=== PATIENT | male | born 1945 | race Caucasian/White ===

== ENCOUNTER 2016-10-16 19:25 | Emergency (ER) | payer MEDICARE, OTHER ==
[~2016-10-16 19:25] MED LIST: Albuterol 0.083% 2.5 MG/3 ML Neb Soln INH ONE
[2016-10-16 19:36] VITALS: BP 147/98
--- NOTE | 2016-10-16 20:17 | EDM.PDOC ---
ED HPI GENERAL MEDICAL PROBLEM - General Chief Complaint: Respiratory Problem Stated Complaint: CHEST COLD Time Seen by Provider: 10/16/16 20:15 Source of Information: Reports: Patient History Limitations: Reports: No Limitations - History of Present Illness INITIAL COMMENTS - FREE TEXT/NARRATIVE: SOB since yesterday with h/o COPD. - Related Data Allergies Allergy/AdvReac Type Severity Reaction Status Date / Time No Known Allergies Allergy Verified 10/16/16 19:32 Home Meds: Home Meds Acetaminophen [Tylenol] 2 tab PO Q4H PRN 10/16/16 [History] Albuterol Sulfate [Proventil Hfa] 2 inh INH Q4H PRN 10/16/16 [History] Budesonide/Formoterol Fumarate [Symbicort 160-4.5 Mcg Inhaler] 2 inh INH BID [History] Calcium Carb & Citrate/Vit D3 [Calcium + D3 ER Tablet] 1 tab PO DAILY 10/16/16 [ History] Docusate Sodium [Colace] 1 tab PO DAILY 10/16/16 [History] Furosemide [Lasix] 1 tab PO DAILY 10/16/16 [History] Gabapentin [Neurontin] 1 tab PO TID 10/16/16 [History] Garlic 1 tab PO DAILY 10/16/16 [History] Hydrocodone/Acetaminophen [Lorcet Hd 10-325 mg Tablet] 1 tab PO ASDIRECTED PRN 10/16/16 [History] Levothyroxine 1 tab PO DAILY 10/16/16 [History] Metoprolol Succinate [Toprol XL] 1 tab PO DAILY 10/16/16 [History] Multivitamin [Multi-Vitamin Daily] 1 tab PO DAILY 10/16/16 [History] Polyethylene Glycol 3350 [MiraLAX] 17 gm PO ASDIRECTED PRN 10/16/16 [History] Spironolactone [Aldactone] 12.5 mg PO DAILY 10/16/16 [History] Tiotropium [Spiriva HandiHaler] 1 inh INH DAILY 10/16/16 [History] Warfarin Sodium [Jantoven] 1 tab PO ASDIRECTED 10/16/16 [History] Warfarin Sodium [Jantoven] 1 tab PO ASDIRECTED 10/16/16 [History] Past Medical History Cardiovascular History: Reports: Heart Failure, Hypertension Respiratory History: Reports: COPD, Sleep Apnea Gastrointestinal History: Reports: Chronic Constipation Musculoskeletal History: Reports: Arthritis Endocrine/Metabolic History: Reports: Hypothyroidism - Past Surgical History Musculoskeletal Surgical History: Reports: Knee Replacement Social & Family History - Family History Family Medical History: Noncontributory - Tobacco Use Smoking Status *Q: Former Smoker Used Tobacco, but Quit: No Month Tobacco Last Used: 2014 Second Hand Smoke Exposure: No - Caffeine Use Caffeine Use: Reports: Coffee - Recreational Drug Use Recreational Drug Use: No ED ROS GENERAL - Review of Systems Review Of Systems: ROS reveals no pertinent complaints other than HPI. ED EXAM, GENERAL - Physical Exam Exam: See Below Exam Limited By: No Limitations General Appearance: Alert, WD/WN, Mild Distress, Other (sob) Ears: Hearing Grossly Normal Throat/Mouth: Normal Voice, No Airway Compromise Head: Atraumatic Neck: Non-Tender, Full Range of Motion Respiratory/Chest: No Respiratory Distress, No Accessory Muscle Use, Rhonchi, Wheezing Cardiovascular: Irregularly Irregular GI/Abdominal: Soft, Non-Tender Neurological: Alert, Oriented, Normal Cognition, Normal Gait, No Motor/Sensory Deficits Psychiatric: Normal Affect, Normal Mood Skin Exam: Warm, Dry Lymphatic: No Adenopathy Course - Vital Signs Last Recorded V/S: Last Vital Signs Temp 36.8 C 10/16/16 19:35 Pulse 73 10/16/16 19:35 Resp 24 H 10/16/16 19:35 BP 147/98 H 10/16/16 19:35 Pulse Ox 88 L 10/16/16 19:35 - Orders/Labs/Meds Orders: Active Orders 24 hr Category Date Time Status EKG Documentation Completion [RC] STAT Care 10/16/16 20:14 Active RT Aerosol Therapy [RC] ASDIRECTED Care 10/16/16 20:39 Active CULTURE BLOOD [BC] Stat Lab 10/16/16 20:30 Received Labs: Laboratory Tests 10/16/16 10/16/16 10/16/16 Range/Units 20:30 20:30 20:30 WBC 10.6 H (5.0-10.0) 10^3/uL RBC 4.81 (4.6-6.2) 10^6/uL Hgb 16.0 (14.0-18.0) g/dL Hct 48.4 (40.0-54.0) % MCV 100.6 H (80-100) fL MCH 33.3 (27.0-34.0) pg MCHC 33.1 (33.0-35.0) g/dL Plt Count 209 (150-450) 10^3/uL Neut % (Auto) 60.6 (42.2-75.2) % Lymph % (Auto) 23.3 (20.5-50.1) % [place] % (Auto) 11.6 H (2-8) % Eos % (Auto) 3.9 H (1.0-3.0) % Baso % (Auto) 0.6 (0.0-1.0) % PT (9.0-12.0) SEC INR (0.9-1.2) D-Dimer, Quantitative 397 (0-400) ng/mL Sodium 142 (135-145) mmol/L Potassium 4.0 (3.6-5.0) mmol/L Chloride 100 L (101-111) mmol/L Carbon Dioxide 30.0 (21.0-31.0) mmol/L Anion Gap 16.0 BUN 31 H (7-18) mg/dL Creatinine 1.5 H (0.6-1.3) mg/dL Est Cr Clr Drug Dosing 54.77 mL/min Estimated GFR (MDRD) 46 BUN/Creatinine Ratio 20.66 Glucose 92 (74-105) mg/dL Lactic Acid (0.5-2.2) mmol/L Calcium 9.6 (8.4-10.2) mg/dl Total Bilirubin 1.3 H (0.2-1.0) mg/dL AST 41 (10-42) IU/L ALT 31 (10-60) IU/L Alkaline Phosphatase 82 (42-121) IU/L Troponin I 0.03 H* (0.00-0.02) ng/ml B-Natriuretic Peptide 175 H (0-100) pg/ml Total Protein 7.0 (6.7-8.2) g/dl Albumin 4.0 (3.2-5.5) g/dl Globulin 3.0 Albumin/Globulin Ratio 1.33 10/16/16 10/16/16 Range/Units 20:30 20:30 WBC (5.0-10.0) 10^3/uL RBC (4.6-6.2) 10^6/uL Hgb (14.0-18.0) g/dL Hct (40.0-54.0) % MCV (80-100) fL MCH (27.0-34.0) pg MCHC (33.0-35.0) g/dL Plt Count (150-450) 10^3/uL Neut % (Auto) (42.2-75.2) % Lymph % (Auto) (20.5-50.1) % [place] % (Auto) (2-8) % Eos % (Auto) (1.0-3.0) % Baso % (Auto) (0.0-1.0) % PT 21.7 H (9.0-12.0) SEC INR 2.2 H (0.9-1.2) D-Dimer, Quantitative (0-400) ng/mL Sodium (135-145) mmol/L Potassium (3.6-5.0) mmol/L Chloride (101-111) mmol/L Carbon Dioxide (21.0-31.0) mmol/L Anion Gap BUN (7-18) mg/dL Creatinine (0.6-1.3) mg/dL Est Cr Clr Drug Dosing mL/min Estimated GFR (MDRD) BUN/Creatinine Ratio Glucose (74-105) mg/dL Lactic Acid 1.4 (0.5-2.2) mmol/L Calcium (8.4-10.2) mg/dl Total Bilirubin (0.2-1.0) mg/dL AST (10-42) IU/L ALT (10-60) IU/L Alkaline Phosphatase (42-121) IU/L Troponin I (0.00-0.02) ng/ml B-Natriuretic Peptide (0-100) pg/ml Total Protein (6.7-8.2) g/dl Albumin (3.2-5.5) g/dl Globulin Albumin/Globulin Ratio Meds: Medications Discontinued Medications Generic Name Dose Route Start Last Admin Trade Name Freq PRN Reason Stop Dose Admin Albuterol/Ipratropium 3 ml 10/16/16 20:39 10/16/16 20:45 Duoneb 3.0-0.5 Mg/3 Ml NEB 10/16/16 20:40 3 ml ONETIME ONE Administration - Re-Assessments/Exams Free Text/Narrative Re-Assessment/Exam: 10/16/16 21:08 results discussed with Pt who states 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 10/16/16 22:[address] Lopes @ [facility] who kindly accepted Pt. Departure - Departure Time of Disposition: 22:14 Disposition: DC/Tfer to Acute Hospital 02 Condition: Good Clinical Impression: COPD exacerbation, Elevated troponin, Elevated brain natriuretic peptide (BNP) level - Discharge Information Forms: Interfacility Transfer EMTALA - My Orders Last 24 Hours: My Active Orders 10/16/16 20:14 EKG Documentation Completion [RC] STAT 10/16/16 20:30 CULTURE BLOOD [BC] Stat 10/16/16 20:39 RT Aerosol Therapy [RC] ASDIRECTED - Assessment/Plan Last 24 Hours: My Active Orders 10/16/16 20:14 EKG Documentation Completion [RC] STAT 10/16/16 20:30 CULTURE BLOOD [BC] Stat 10/16/16 20:39 RT Aerosol Therapy [RC] ASDIRECTED
[2016-10-16] MEDS ORDERED: Albuterol/Ipratropium 3.0-0.5 MG/3 ML Neb Soln NEB ONE (20:39)
[2016-10-16] MEDS ORDERED: Albuterol 0.083% 2.5 MG/3 ML Neb Soln ONE (22:58)
--- NOTE | 2016-10-17 21:50 | EKG ---
10/16/2016 - FAYE SOTOMAYOR - Twelve-lead EKG shows atrial fibrillation with heart rate of 74. No significant ST elevation or ST depression noted on this 12-lead EKG. [facility] /[id number]
== END 2016-10-16 23:16 ==
LOC: DL.ED 19:25
DX: J44.1 Chronic obstructive pulmonary disease with (acute) exacerbation (principal); R74.8 Abnormal levels of other serum enzymes; R79.89 Other specified abnormal findings of blood chemistry; E03.9 Hypothyroidism, unspecified; I10 Essential (primary) hypertension; I50.9 Heart failure, unspecified; Z87.891 Personal history of nicotine dependence; Z96.659 Presence of unspecified artificial knee joint; Z79.899 Other long term (current) drug therapy; Z79.01 Long term (current) use of anticoagulants
CPT/HCPCS: 36415; 71010; 80053; 83605; 83880; 84484; 85025; 85379; 85610; 87040; 93005; 93010; 94640; 99285; J7620; 99283

== ENCOUNTER 2016-10-29 12:03 | Emergency (ER) | payer MEDICARE, OTHER ==
--- NOTE | 2016-10-29 12:10 | EDM.PDOC ---
ED HPI GENERAL MEDICAL PROBLEM - General Chief Complaint: Trauma Stated Complaint: IN BY AMBULANCE Time Seen by Provider: 10/29/16 12:00 Source of Information: Reports: EMS - History of Present Illness INITIAL COMMENTS - FREE TEXT/NARRATIVE: Per Ems, pt was found down upon their arrival. States that pt states that he tripped and fell. c/o pain to lower back. States that he had been down since approximately 7 am. Per patient, he was walking and tripped, fell down but then got up and grabbed his walker to help him walk and it slipped and he fell again and couldnt get up. Denies LOC or any other complaints. EMS states that pt was dragging the right leg and his saturation was at 60's% initially but increased to 90% on NRB. Onset: Today Onset Time: 07:00 Location: Reports: Head, Back Quality: Reports: Ache Severity: Moderate Improves with: Reports: None Worsens with: Reports: None Associated Symptoms: Reports: No Other Symptoms - Related Data Allergies Allergy/AdvReac Type Severity Reaction Status Date / Time No Known Allergies Allergy Verified 10/29/16 12:16 Home Meds: Home Meds Acetaminophen [Tylenol] 2 tab PO Q4H PRN 10/16/16 [History] Albuterol Sulfate [Proventil Hfa] 2 inh INH Q4H PRN 10/16/16 [History] Budesonide/Formoterol Fumarate [Symbicort 160-4.5 Mcg Inhaler] 2 inh INH BID [History] Calcium Carb & Citrate/Vit D3 [Calcium + D3 ER Tablet] 1 tab PO DAILY 10/16/16 [ History] Docusate Sodium [Colace] 1 tab PO DAILY 10/16/16 [History] Furosemide [Lasix] 1 tab PO DAILY 10/16/16 [History] Gabapentin [Neurontin] 1 tab PO TID 10/16/16 [History] Garlic 1 tab PO DAILY 10/16/16 [History] Hydrocodone/Acetaminophen [Lorcet Hd 10-325 mg Tablet] 1 tab PO ASDIRECTED PRN 10/16/16 [History] Levothyroxine 1 tab PO DAILY 10/16/16 [History] Metoprolol Succinate [Toprol XL] 1 tab PO DAILY 10/16/16 [History] Multivitamin [Multi-Vitamin Daily] 1 tab PO DAILY 10/16/16 [History] Polyethylene Glycol 3350 [MiraLAX] 17 gm PO ASDIRECTED PRN 10/16/16 [History] Spironolactone [Aldactone] 12.5 mg PO DAILY 10/16/16 [History] Tiotropium [Spiriva HandiHaler] 1 inh INH DAILY 10/16/16 [History] Warfarin Sodium [Jantoven] 1 tab PO ASDIRECTED 10/16/16 [History] Warfarin Sodium [Jantoven] 1 tab PO ASDIRECTED 10/16/16 [History] Past Medical History Cardiovascular History: Reports: Heart Failure, Hypertension Respiratory History: Reports: COPD, Sleep Apnea Gastrointestinal History: Reports: Chronic Constipation Musculoskeletal History: Reports: Arthritis Endocrine/Metabolic History: Reports: Hypothyroidism - Past Surgical History Musculoskeletal Surgical History: Reports: Knee Replacement Social & Family History - Family History Family Medical History: Noncontributory - Tobacco Use Smoking Status *Q: Former Smoker Used Tobacco, but Quit: No Month Tobacco Last Used: 2014 Second Hand Smoke Exposure: No - Caffeine Use Caffeine Use: Reports: Coffee - Recreational Drug Use Recreational Drug Use: No Review of Systems - Review of Systems Review Of Systems: ROS reveals no pertinent complaints other than HPI. ED EXAM, GENERAL - Physical Exam Exam: See Below Exam Limited By: No Limitations General Appearance: Alert, WD/WN, No Apparent Distress Eye Exam: Bilateral Eye: Abnormal Pupil (L4, R 2) Ears: Normal External Exam, Normal Canal, Hearing Grossly Normal, Normal TMs Head: Other (small hematoma right temporal area) Neck: Normal Inspection, Supple, Non-Tender, Full Range of Motion Respiratory/Chest: No Respiratory Distress, No Accessory Muscle Use, Chest Non- Tender, Decreased Breath Sounds Cardiovascular: Normal Peripheral Pulses, Regular Rate, Rhythm, No Edema, No Gallop, No JVD, No Murmur, No Rub GI/Abdominal: Normal Bowel Sounds, Soft, Non-Tender, No Organomegaly, No Distention, No Abnormal Bruit, No Mass Extremities: Normal Inspection, No Pedal Edema, Normal Capillary Refill, Limited Range of Motion (pain, Lower back to palpation) Neurological: Alert, Oriented, CN II-XII Intact, Normal Cognition, Normal Gait, Normal Reflexes, No Motor/Sensory Deficits Skin Exam: Warm, Dry, Normal Color, No Rash, Wound/Incision (small abrasion to left forearm) Course - Vital Signs Last Recorded V/S: Last Vital Signs Temp 98.6 F 10/29/16 19:13 Pulse 76 10/29/16 19:13 Resp 18 10/29/16 19:13 BP 126/80 10/29/16 19:13 Pulse Ox 99 10/29/16 19:13 - Orders/Labs/Meds Orders: Active Orders 24 hr Category Date Time Status EKG Documentation Completion [RC] STAT Care 10/29/16 12:27 Active RT Aerosol Therapy [RC] ASDIRECTED Care 10/29/16 15:07 Active Vaccines to be Administered [RC] PER UNIT ROUTINE Care 10/29/16 12:52 Active Heparin Sodium/D5W [Heparin 25,000 Units in D5W 500 ML] Med 10/29/16 19:30 Ordered 25,000 units in 500 ml IV TITRATE Sodium Chloride 0.9% [Normal Saline] 1,000 ml Med 10/29/16 13:21 Active IV ASDIRECTED Sodium Chloride 0.9% [Saline Flush] Med 10/29/16 12:29 Active 10 ml FLUSH ASDIRECTED PRN Saline Lock Insert [OM.PC] Stat Oth 10/29/16 12:27 Ordered Medication Orders Sodium Chloride (Normal Saline) 1,000 mls @ 100 mls/hr IV ASDIRECTED ONE Stop: 10/29/16 23:20 Last Admin: 10/29/16 13:26 Dose: 100 mls/hr Heparin Sodium/Dextrose (Heparin 25,000 Units In D5w 500 Ml) 25,000 units in 500 mls @ 29.937 mls/hr IV TITRATE CHIKIS; 12 UNITS/KG/HR PRN Reason: Protocol Last Admin: 10/29/16 19:30 Dose: 12 units/kg/hr, 29.937 mls/hr Sodium Chloride (Saline Flush) 10 ml FLUSH ASDIRECTED PRN PRN Reason: Keep Vein Open Last Admin: 10/29/16 12:54 Dose: 10 ml Labs: Laboratory Tests 10/29/16 10/29/16 10/29/16 Range/Units 12:04 12:04 12:04 WBC 13.2 H (5.0-10.0) 10^3/uL RBC 5.08 (4.6-6.2) 10^6/uL Hgb 16.7 (14.0-18.0) g/dL Hct 50.2 (40.0-54.0) % MCV 98.8 (80-100) fL MCH 32.9 (27.0-34.0) pg MCHC 33.3 (33.0-35.0) g/dL Plt Count 190 (150-450) 10^3/uL Neut % (Auto) 86.0 H (42.2-75.2) % Lymph % (Auto) 5.2 L (20.5-50.1) % [place] % (Auto) 8.2 H (2-8) % Eos % (Auto) 0.3 L (1.0-3.0) % Baso % (Auto) 0.3 (0.0-1.0) % Sodium 143 (135-145) mmol/L Potassium 4.4 (3.6-5.0) mmol/L Chloride 104 (101-111) mmol/L Carbon Dioxide 27.0 (21.0-31.0) mmol/L Anion Gap 16.4 BUN 24 H (7-18) mg/dL Creatinine 1.4 H (0.6-1.3) mg/dL Est Cr Clr Drug Dosing 58.68 mL/min Estimated GFR (MDRD) 50 Glucose 134 H (74-105) mg/dL POC Glucose (83-110) mg/dl Calcium 9.5 (8.4-10.2) mg/dl Creatine Kinase 657 H (26-174) IU/L Creatine Kinase Index 0.7 (0-2.4) % CK-MB (CK-2) 4.90 H (0.4-4.7) ng/mL Troponin I 0.16 H* (0.00-0.02) ng/ml B-Natriuretic Peptide (0-100) pg/ml Urine Color (YELLOW) Urine Appearance (CLEAR) Urine pH (5.0-9.0) Ur Specific [place] (1.005-1.030) Urine Protein (NEGATIVE) Urine Glucose (UA) (NEGATIVE) Urine Ketones (NEGATIVE) Urine Occult Blood (NEGATIVE) Urine Nitrite (NEGATIVE) Urine Bilirubin (NEGATIVE) Urine Urobilinogen (0.2-1.0) mg/dL Ur Leukocyte Esterase (NEGATIVE) Urine RBC /HPF Urine WBC (0-5/HPF) /HPF Ur Epithelial Cells /HPF Urine Bacteria (0-FEW/HPF) /HPF Hyaline Casts /LPF Ethyl Alcohol < 5 mg/dL 10/29/16 10/29/16 10/29/16 Range/Units 12:04 12:09 12:09 WBC (5.0-10.0) 10^3/uL RBC (4.6-6.2) 10^6/uL Hgb (14.0-18.0) g/dL Hct (40.0-54.0) % MCV (80-100) fL MCH (27.0-34.0) pg MCHC (33.0-35.0) g/dL Plt Count (150-450) 10^3/uL Neut % (Auto) (42.2-75.2) % Lymph % (Auto) (20.5-50.1) % [place] % (Auto) (2-8) % Eos % (Auto) (1.0-3.0) % Baso % (Auto) (0.0-1.0) % Sodium (135-145) mmol/L Potassium (3.6-5.0) mmol/L Chloride (101-111) mmol/L Carbon Dioxide (21.0-31.0) mmol/L Anion Gap BUN (7-18) mg/dL Creatinine (0.6-1.3) mg/dL Est Cr Clr Drug Dosing mL/min Estimated GFR (MDRD) Glucose (74-105) mg/dL POC Glucose 139 H (83-110) mg/dl Calcium (8.4-10.2) mg/dl Creatine Kinase (26-174) IU/L Creatine Kinase Index (0-2.4) % CK-MB (CK-2) (0.4-4.7) ng/mL Troponin I (0.00-0.02) ng/ml B-Natriuretic Peptide 171 H (0-100) pg/ml Urine Color Yellow (YELLOW) Urine Appearance Clear (CLEAR) Urine pH 5.5 (5.0-9.0) Ur Specific [place] 1.025 (1.005-1.030) Urine Protein >=300 H (NEGATIVE) Urine Glucose (UA) Negative (NEGATIVE) Urine Ketones Negative (NEGATIVE) Urine Occult Blood Moderate H (NEGATIVE) Urine Nitrite Negative (NEGATIVE) Urine Bilirubin Negative (NEGATIVE) Urine Urobilinogen 0.2 (0.2-1.0) mg/dL Ur Leukocyte Esterase Negative (NEGATIVE) Urine RBC 0-5 /HPF Urine WBC 0-5 (0-5/HPF) /HPF Ur Epithelial Cells Few /HPF Urine Bacteria Not seen (0-FEW/HPF) /HPF Hyaline Casts Rare H /LPF Ethyl Alcohol mg/dL 10/29/16 10/29/16 Range/Units 17:59 17:59 WBC (5.0-10.0) 10^3/uL RBC (4.6-6.2) 10^6/uL Hgb (14.0-18.0) g/dL Hct (40.0-54.0) % MCV (80-100) fL MCH (27.0-34.0) pg MCHC (33.0-35.0) g/dL Plt Count (150-450) 10^3/uL Neut % (Auto) (42.2-75.2) % Lymph % (Auto) (20.5-50.1) % [place] % (Auto) (2-8) % Eos % (Auto) (1.0-3.0) % Baso % (Auto) (0.0-1.0) % Sodium 143 (135-145) mmol/L Potassium 4.6 (3.6-5.0) mmol/L Chloride 106 (101-111) mmol/L Carbon Dioxide 28.0 (21.0-31.0) mmol/L Anion Gap 13.6 BUN 23 H (7-18) mg/dL Creatinine 1.1 (0.6-1.3) mg/dL Est Cr Clr Drug Dosing 74.68 mL/min Estimated GFR (MDRD) > 60 Glucose 172 H (74-105) mg/dL POC Glucose (83-110) mg/dl Calcium 9.0 (8.4-10.2) mg/dl Creatine Kinase 764 H (26-174) IU/L Creatine Kinase Index 0.7 (0-2.4) % CK-MB (CK-2) 5.70 H (0.4-4.7) ng/mL Troponin I 0.34 H* (0.00-0.02) ng/ml B-Natriuretic Peptide (0-100) pg/ml Urine Color (YELLOW) Urine Appearance (CLEAR) Urine pH (5.0-9.0) Ur Specific [place] (1.005-1.030) Urine Protein (NEGATIVE) Urine Glucose (UA) (NEGATIVE) Urine Ketones (NEGATIVE) Urine Occult Blood (NEGATIVE) Urine Nitrite (NEGATIVE) Urine Bilirubin (NEGATIVE) Urine Urobilinogen (0.2-1.0) mg/dL Ur Leukocyte Esterase (NEGATIVE) Urine RBC /HPF Urine WBC (0-5/HPF) /HPF Ur Epithelial Cells /HPF Urine Bacteria (0-FEW/HPF) /HPF Hyaline Casts /LPF Ethyl Alcohol mg/dL Meds: Medications Generic Name Dose Route Start Last Admin Trade Name Ham PRN Reason Stop Dose Admin Sodium Chloride 1,000 mls @ 100 mls/hr 10/29/16 13:21 10/29/16 13:26 Normal Saline IV 10/29/16 23:20 100 mls/hr ASDIRECTED ONE Administration Heparin Sodium/Dextrose 25,000 units in 500 mls @ 29.937 mls/hr 10/29/16 19: 30 10/29/16 19:30 Heparin 25,000 Units In D5w 500 Ml IV 12 units/kg/hr TITRATE CHIKIS 29.937 mls/hr Protocol Administration 12 UNITS/KG/HR Sodium Chloride 10 ml 10/29/16 12:29 10/29/16 12:54 Saline Flush FLUSH 10 ml ASDIRECTED PRN Administration Keep Vein Open Discontinued Medications Generic Name Dose Route Start Last Admin Trade Name Ham PRN Reason Stop Dose Admin Albuterol/Ipratropium 3 ml 10/29/16 15:06 10/29/16 15:15 Duoneb 3.0-0.5 Mg/3 Ml NEB 10/29/16 15:07 3 ml ONETIME ONE Administration Aspirin 324 mg 10/29/16 13:20 10/29/16 13:26 Aspirin PO 10/29/16 13:21 324 mg ONETIME ONE Administration Diphtheria/Tetanus/Acell Pertussis 0.5 ml 10/29/16 12:52 10/29/16 13:17 Adacel IM 10/29/16 12:53 0.5 ml .ONCE ONE Administration Heparin Sodium (Porcine) 5,000 units 10/29/16 19:10 Heparin Sodium IVPUSH 10/29/16 19:11 ONETIME ONE Sodium Chloride 1,000 mls @ 999 mls/hr 10/29/16 14:23 10/29/16 14:42 Normal Saline IV 10/29/16 15:23 Not Given .BOLUS ONE Sodium Chloride 1,000 mls @ 999 mls/hr 10/29/16 15:06 10/29/16 15:20 Normal Saline IV 10/29/16 16:06 999 mls/hr .BOLUS ONE Administration Iopamidol 125 ml 10/29/16 12:37 10/29/16 13:33 Isovue-300 (61%) IVPUSH 10/29/16 12:38 125 ml ONETIME ONE Administration Methylprednisolone Sodium Succinate 125 mg 10/29/16 15:06 10/29/16 15:19 Solu-Medrol IVPUSH 10/29/16 15:07 125 mg ONETIME ONE Administration - Re-Assessments/Exams Free Text/Narrative Re-Assessment/Exam: 10/29/16 12:[address] Serna at [facility] and he states to repeat troponin and BMP to re-evaluate the elevated troponin and cr. States that pt had an echo within the past month and it was normal. Will obtain repeat labs in 6 hours. 10/29/16 18:[address] Serna about repeat labs and elevation and he feels that patient does not need to be admitted and the elevated enzymes could be because of the electrolyte imbalance and dehydration. Will speak with family and notify results and plan. 10/29/16 19:33 Spoke with daughter Loida and patient who both agree with transfer to [place] with Dr. Gimenez accepting. Departure - Departure Time of Disposition: 19:19 Disposition: DC/Tfer to Acute Hospital 02 Condition: Good Clinical Impression: Elevated troponin, NSTEMI, initial episode of care - Discharge Information Forms: ED Department Discharge, Interfacility Transfer EMTALA - My Orders Last 24 Hours: My Active Orders 10/29/16 12:27 EKG Documentation Completion [RC] STAT Saline Lock Insert [OM.PC] Stat 10/29/16 12:29 Sodium Chloride 0.9% [Saline Flush] 10 ml FLUSH ASDIRECTED PRN 10/29/16 12:52 Vaccines to be Administered [RC] PER UNIT ROUTINE 10/29/16 13:21 Sodium Chloride 0.9% [Normal Saline] 1,000 ml IV ASDIRECTED 10/29/16 15:07 RT Aerosol Therapy [RC] ASDIRECTED 10/29/16 19:30 Heparin Sodium/D5W [Heparin 25,000 Units in D5W 500 ML] 25,000 units in 500 ml IV TITRATE - Assessment/Plan Last 24 Hours: My Active Orders 10/29/16 12:27 EKG Documentation Completion [RC] STAT Saline Lock Insert [OM.PC] Stat 10/29/16 12:29 Sodium Chloride 0.9% [Saline Flush] 10 ml FLUSH ASDIRECTED PRN 10/29/16 12:52 Vaccines to be Administered [RC] PER UNIT ROUTINE 10/29/16 13:21 Sodium Chloride 0.9% [Normal Saline] 1,000 ml IV ASDIRECTED 10/29/16 15:07 RT Aerosol Therapy [RC] ASDIRECTED 10/29/16 19:30 Heparin Sodium/D5W [Heparin 25,000 Units in D5W 500 ML] 25,000 units in 500 ml IV TITRATE
[2016-10-29] MEDS ORDERED: Sodium Chloride 0.9% 10 ML Syringe FLUSH PRN (12:29)
[2016-10-29] MEDS ORDERED: Iopamidol 612 MG/ML 100 ML Bottle IVPUSH ONE (12:37)
[2016-10-29] MEDS ORDERED: Diphtheria,Pertussis(Acell),Tetanus Vaccine 0.5 ML SDV IM ONE (12:52)
[2016-10-29 12:54] LABS: SODIUM,NA 143 mmol/L (135-145)
[2016-10-29 12:55] LABS: CHLORIDE,CL 104 mmol/L (101-111)
[2016-10-29] MEDS ORDERED: Aspirin 81 MG Tab.Chew PO ONE (13:20)
[2016-10-29] MEDS ORDERED: Sodium Chloride 0.9% 1,000 ML IV ONE ×3 (13:21→15:06)
[2016-10-29] MEDS ORDERED: Albuterol/Ipratropium 3.0-0.5 MG/3 ML Neb Soln NEB ONE (15:06)
[2016-10-29] MEDS ORDERED: methylPREDNISolone Sodium Succinate 125 MG/2 ML SDV IVPUSH ONE (15:06)
[2016-10-29 18:27] LABS: CHLORIDE,CL 106 mmol/L (101-111); SODIUM,NA 143 mmol/L (135-145)
[2016-10-29] MEDS ORDERED: Heparin Sodium 5,000 Units/ML Vial IVPUSH ONE (19:10)
[2016-10-29 19:13] VITALS: BP 126/80
[2016-10-29] MEDS ORDERED: Heparin Sodium/D5W 25,000 UNITS/500 ML BAG IV SCH (19:30)
[2016-10-29] MEDS ORDERED: fentaNYL 100 MCG/2 ML SDV IVPUSH ONE (20:14)
[2016-10-29] MEDS ORDERED: Ondansetron 4 MG/2 ML SDV IV ONE (20:14)
--- NOTE | 2016-11-19 12:59 | EKG ---
10/29/2016 - FAYE SOTOMAYOR - TIME OF EK:01 p.m. FINDINGS: EKG shows atrial fibrillation with rapid ventricular response. The rate is 103 per minute. [facility] /[id number]
== END 2016-10-29 20:30 ==
LOC: DL.ED 12:03
DX: I21.4 Non-ST elevation (NSTEMI) myocardial infarction (principal); R79.89 Other specified abnormal findings of blood chemistry; I11.0 Hypertensive heart disease with heart failure; I50.9 Heart failure, unspecified; J44.9 Chronic obstructive pulmonary disease, unspecified; M19.90 Unspecified osteoarthritis, unspecified site; E03.9 Hypothyroidism, unspecified; Z96.659 Presence of unspecified artificial knee joint; Z79.01 Long term (current) use of anticoagulants; Z79.899 Other long term (current) drug therapy; Z87.891 Personal history of nicotine dependence; Z23 Encounter for immunization
CPT/HCPCS: 36415; 70450; 71260; 72125; 72128; 72131; 74177; 80048; 81001; 82550; 82553; 82962; 83880; 84484; 85025; 90471; 90715; 93005; 93010; 94640; 96374; 96375; 99284; 99285; A9270; G0480; J1644; J2405; J2930; J3010; J7030; J7050; Q9967

== ENCOUNTER 2018-12-30 19:25 | Emergency (ER) | payer MEDICARE, OTHER ==
[2018-12-30 21:58] LABS: ANION GAP 11.2
[2018-12-30] MEDS ORDERED: Sodium Chloride 0.9% 1,000 ML IV ONE (22:51)
[2018-12-30 23:47] VITALS: BP 102/60
[2018-12-31] MEDS ORDERED: Acetaminophen/oxyCODONE 325-5 MG Tab PO ONE (00:57)
--- NOTE | 2019-01-06 03:47 | EDM.PDOC ---
ED HPI GENERAL MEDICAL PROBLEM - General Chief Complaint: Lower Extremity Injury/Pain Stated Complaint: LEG IS HURTING Time Seen by Provider: 12/30/18 20:25 Source of Information: Reports: Patient, Family History Limitations: Reports: No Limitations - History of Present Illness INITIAL COMMENTS - FREE TEXT/NARRATIVE: C/o left leg bruised and left ribs hurting lower and around back. Reports multiple falls today, Notes falls ferquenlty, decreased feeling in feet and stumbles Has walker at home. Family reported fell early this am and laid on floor until family came to assist up, sat in recliner most of afternoon andearly rikki as unable to get up without pain. No SOB than usual. Daughter states he was supposed to be on oxygen but refused to use it. Hx ETOH use daily unknown amounts. Daughter also voices concern with use of pain medication he is currently on. - Related Data Allergies Allergy/AdvReac Type Severity Reaction Status Date / Time No Known Allergies Allergy Verified 12/30/18 20:55 Home Meds: Home Meds Acetaminophen [Tylenol] 2 tab PO Q4H PRN 10/16/16 [History] Albuterol Sulfate [Proventil Hfa] 2 inh INH Q4H PRN 10/16/16 [History] Budesonide/Formoterol Fumarate [Symbicort 160-4.5 Mcg Inhaler] 2 inh INH BID [History] Calcium Carb & Citrate/Vit D3 [Calcium + D3 ER Tablet] 1 tab PO DAILY 10/16/16 [ History] Docusate Sodium [Colace] 1 tab PO DAILY 10/16/16 [History] Furosemide [Lasix] 1 tab PO DAILY 10/16/16 [History] Gabapentin [Neurontin] 1 tab PO TID 10/16/16 [History] Garlic 1 tab PO DAILY 10/16/16 [History] Hydrocodone/Acetaminophen [Lorcet Hd 10-325 mg Tablet] 1 tab PO ASDIRECTED PRN 10/16/16 [History] Levothyroxine 1 tab PO DAILY 10/16/16 [History] Metoprolol Succinate [Toprol XL] 1 tab PO DAILY 10/16/16 [History] Multivitamin [Multi-Vitamin Daily] 1 tab PO DAILY 10/16/16 [History] Polyethylene Glycol 3350 [MiraLAX] 17 gm PO ASDIRECTED PRN 10/16/16 [History] Spironolactone [Aldactone] 12.5 mg PO DAILY 10/16/16 [History] Tiotropium [Spiriva HandiHaler] 1 inh INH DAILY 10/16/16 [History] Warfarin Sodium [Jantoven] 1 tab PO ASDIRECTED 10/16/16 [History] Warfarin Sodium [Jantoven] 1 tab PO ASDIRECTED 10/16/16 [History] Past Medical History Cardiovascular History: Reports: Heart Failure, Hypertension Respiratory History: Reports: COPD, Sleep Apnea Gastrointestinal History: Reports: Chronic Constipation Musculoskeletal History: Reports: Arthritis Endocrine/Metabolic History: Reports: Hypothyroidism - Past Surgical History Musculoskeletal Surgical History: Reports: Knee Replacement Social & Family History - Family History Family Medical History: Noncontributory - Tobacco Use Smoking Status *Q: Never Smoker Second Hand Smoke Exposure: No - Caffeine Use Caffeine Use: Reports: Coffee, Soda, Tea - Alcohol Use Number of Drinks Per Day: 1 - Recreational Drug Use Recreational Drug Use: No Review of Systems - Review of Systems Review Of Systems: ROS reveals no pertinent complaints other than HPI. ED EXAM, GENERAL - Physical Exam Exam: See Below Exam Limited By: No Limitations General Appearance: Alert, Mild Distress, Obese Eye Exam: Bilateral Eye: EOMI, PERRL Ears: Normal External Exam, Hearing Grossly Normal, Normal TMs Nose: Other (scant bruising to tip of nose) Throat/Mouth: Other (dry mucus membranes) Head: Atraumatic (faint bruise to mid forehead) Neck: Full Range of Motion. No: Tender Midline Respiratory/Chest: No Respiratory Distress, Decreased Breath Sounds (left), Wheezing (expiratory bases), Splinting (left pain lower left ribs) Cardiovascular: Normal Peripheral Pulses GI/Abdominal: Normal Bowel Sounds, Soft Back Exam: Normal Inspection Extremities: Leg Pain (hematoma left [place]) Neurological: Alert, Oriented, Normal Cognition Psychiatric: Flat Affect Skin Exam: Ecchymosis (multiple contusions bruises to extremities scattered) Course - Vital Signs Last Recorded V/S: Last Vital Signs Temp 97.9 F 12/30/18 23:13 Pulse 55 L 12/30/18 23:46 Resp 19 12/30/18 23:46 BP 102/60 12/30/18 23:46 Pulse Ox 95 12/30/18 23:46 - Orders/Labs/Meds Labs: Laboratory Tests 12/30/18 12/30/18 12/30/18 Range/Units 21:27 21:27 21:27 WBC 8.4 (5.0-10.0) 10^3/uL RBC 4.48 L (4.6-6.2) 10^6/uL Hgb 14.2 D (14.0-18.0) g/dL Hct 43.7 (40.0-54.0) % MCV 97.5 (80-100) fL MCH 31.7 (27.0-34.0) pg MCHC 32.5 L (33.0-35.0) g/dL Plt Count 167 (150-450) 10^3/uL Neut % (Auto) 65.4 (42.2-75.2) % Lymph % (Auto) 20.2 L (20.5-50.1) % Hunt % (Auto) 12.1 H (2-8) % Eos % (Auto) 1.9 (1.0-3.0) % Baso % (Auto) 0.4 (0.0-1.0) % PT 45.8 H D (9.0-12.0) SEC INR 4.9 H (0.9-1.2) Sodium 138 (135-145) mmol/L Potassium 4.2 (3.6-5.0) mmol/L Chloride 98 L (101-111) mmol/L Carbon Dioxide 33.0 H (21.0-31.0) mmol/L Anion Gap 11.2 BUN 56 H D (7-18) mg/dL Creatinine 1.9 H (0.6-1.3) mg/dL Est Cr Clr Drug Dosing 42.00 mL/min Estimated GFR (MDRD) 35 BUN/Creatinine Ratio 29.47 Glucose 126 H (74-105) mg/dL Calcium 8.8 (8.4-10.2) mg/dl Total Bilirubin 1.0 (0.2-1.0) mg/dL AST 37 (10-42) IU/L ALT 22 (10-60) IU/L Alkaline Phosphatase 80 (42-121) IU/L Creatine Kinase (26-174) IU/L Troponin I (0.00-0.02) ng/ml B-Natriuretic Peptide (0-100) pg/ml Total Protein 6.3 L (6.7-8.2) g/dl Albumin 3.5 (3.2-5.5) g/dl Globulin 2.8 Albumin/Globulin Ratio 1.25 Urine Color (YELLOW) Urine Appearance (CLEAR) Urine pH (5.0-9.0) Ur Specific [place] (1.005-1.030) Urine Protein (NEGATIVE) Urine Glucose (UA) (NEGATIVE) Urine Ketones (NEGATIVE) Urine Occult Blood (NEGATIVE) Urine Nitrite (NEGATIVE) Urine Bilirubin (NEGATIVE) Urine Urobilinogen (0.2-1.0) mg/dL Ur Leukocyte Esterase (NEGATIVE) Ethyl Alcohol mg/dL 12/30/18 12/30/18 12/30/18 Range/Units 21:27 21:27 22:35 WBC (5.0-10.0) 10^3/uL RBC (4.6-6.2) 10^6/uL Hgb (14.0-18.0) g/dL Hct (40.0-54.0) % MCV (80-100) fL MCH (27.0-34.0) pg MCHC (33.0-35.0) g/dL Plt Count (150-450) 10^3/uL Neut % (Auto) (42.2-75.2) % Lymph % (Auto) (20.5-50.1) % Hunt % (Auto) (2-8) % Eos % (Auto) (1.0-3.0) % Baso % (Auto) (0.0-1.0) % PT (9.0-12.0) SEC INR (0.9-1.2) Sodium (135-145) mmol/L Potassium (3.6-5.0) mmol/L Chloride (101-111) mmol/L Carbon Dioxide (21.0-31.0) mmol/L Anion Gap BUN (7-18) mg/dL Creatinine (0.6-1.3) mg/dL Est Cr Clr Drug Dosing mL/min Estimated GFR (MDRD) BUN/Creatinine Ratio Glucose (74-105) mg/dL Calcium (8.4-10.2) mg/dl Total Bilirubin (0.2-1.0) mg/dL AST (10-42) IU/L ALT (10-60) IU/L Alkaline Phosphatase (42-121) IU/L Creatine Kinase 524 H (26-174) IU/L Troponin I 0.04 H* Cancelled (0.00-0.02) ng/ml B-Natriuretic Peptide 408 H (0-100) pg/ml Total Protein (6.7-8.2) g/dl Albumin (3.2-5.5) g/dl Globulin Albumin/Globulin Ratio Urine Color Yellow (YELLOW) Urine Appearance Clear (CLEAR) Urine pH 5.5 (5.0-9.0) Ur Specific [place] 1.015 (1.005-1.030) Urine Protein Negative (NEGATIVE) Urine Glucose (UA) Negative (NEGATIVE) Urine Ketones Negative (NEGATIVE) Urine Occult Blood Negative (NEGATIVE) Urine Nitrite Negative (NEGATIVE) Urine Bilirubin Negative (NEGATIVE) Urine Urobilinogen 0.2 (0.2-1.0) mg/dL Ur Leukocyte Esterase Negative (NEGATIVE) Ethyl Alcohol < 5 mg/dL Meds: Medications Discontinued Medications Generic Name Dose Route Start Last Admin Trade Name Freq PRN Reason Stop Dose Admin Sodium Chloride 1,000 mls @ 250 mls/hr 12/30/18 22:51 12/30/18 23:31 Normal Saline IV 12/31/18 02:50 100 mls/hr .BOLUS ONE Infusion Oxycodone/Acetaminophen 1 tab 12/31/18 00:57 12/31/18 01:04 Percocet 325-5 Mg PO 12/31/18 00:58 1 tab ONETIME ONE Administration - Re-Assessments/Exams Free Text/Narrative Re-Assessment/Exam: Admission observation recommended due to increased falls , rib fractures and decreased mobility. Also elevated troponin with no recent baseline comparison. Hx COPD. Patient refuses. Daughter present. AMA form signed by patient and daughter. Daughter does live near by and does check on patient. Has life line but has not used. Follow up recommended and consider discussion with PCP if patient falling frequently discuss risk benefit of coumadin. hold coumadin x 2 days and recheck in clinic Departure - Departure Time of Disposition: 01:30 Disposition: Against Medical Advice 07 Clinical Impression: Contusion, multiple sites, H/O alcohol abuse, Chronic anticoagulation, Chronic a-fib, Elevated INR Fall at home Qualifiers: Encounter type: initial encounter Qualified Code(s): W19.XXXA - Unspecified fall, initial encounter; Y92.009 - Unspecified place in unspecified non- institutional (private) residence as the place of occurrence of the external cause Left rib fracture Qualifiers: Encounter type: initial encounter Rib fracture type: multiple ribs Fracture type: closed Qualified Code(s): S22.42XA - Multiple fractures of ribs, left side , initial encounter for closed fracture - Discharge Information Forms: ED Department Discharge
== END 2018-12-31 01:39 | disposition left against medical advice (07) ==
LOC: DL.ED 19:25
DX: S22.42XA Multiple fractures of ribs, left side, initial encounter for closed fracture (principal); S22.029A Unspecified fracture of second thoracic vertebra, initial encounter for closed fracture; S22.079A Unspecified fracture of T9-T10 vertebra, initial encounter for closed fracture; S32.029A Unspecified fracture of second lumbar vertebra, initial encounter for closed fracture; S80.12XA Contusion of left lower leg, initial encounter; S00.83XA Contusion of other part of head, initial encounter; I48.2 Chronic atrial fibrillation; R79.1 Abnormal coagulation profile; I11.0 Hypertensive heart disease with heart failure; I50.9 Heart failure, unspecified; E03.9 Hypothyroidism, unspecified; F10.10 Alcohol abuse, uncomplicated; Z79.01 Long term (current) use of anticoagulants; Z79.899 Other long term (current) drug therapy; W19.XXXA Unspecified fall, initial encounter; Y92.009 Unspecified place in unspecified non-institutional (private) residence as the place of occurrence of the external cause; Y90.0 Blood alcohol level of less than 20 mg/100 ml
CPT/HCPCS: 36415; 70450; 71250; 72125; 72192; 73590; 80053; 81003; 82550; 83880; 84484; 85025; 85610; 93005; 96360; 96361; 99285; A9270; G0480; J7030

== ENCOUNTER 2019-06-12 09:30 | Emergency (ER) | payer MEDICARE, OTHER ==
[2019-06-12] MEDS ORDERED: Albuterol/Ipratropium 3.0-0.5 MG/3 ML Neb Soln NEB ONE (09:55)
[2019-06-12 09:57] VITALS: BP 145/94
[2019-06-12] MEDS ORDERED: methylPREDNISolone Sodium Succinate 125 MG/2 ML SDV IVPUSH ONE (09:57)
[2019-06-12 10:03] VITALS: PULSE 83
[2019-06-12 10:33] LABS: ANION GAP 14.1; CHLORIDE,CL 99 mmol/L (101-111); SODIUM,NA 139 mmol/L (135-145)
--- NOTE | 2019-06-12 12:12 | EDM.PDOC ---
Scribed by Chandni Jacob 06/12/19 1003 for Anastasiia Khalil MD ED HPI GENERAL MEDICAL PROBLEM - General Chief Complaint: Respiratory Problem Stated Complaint: CONGESTION Time Seen by Provider: 06/12/19 09:56 Source of Information: Reports: Patient, RN, RN Notes Reviewed History Limitations: Reports: No Limitations - History of Present Illness INITIAL COMMENTS - FREE TEXT/NARRATIVE: Patient presents to ER via POV with complaint of progressively worsening shortness of breath for about 1 week. Reports history of COPD and chronic A- fib. Seen in clinic last week but not improving. He has nebulizer and supplemental oxygen at home, which he only uses p.r.n. Denies fever. Denies any edema. Pt later reports that he has been having intermittent episodes of chest pain for over 1 week. He had an ECHO ordered by his PCP at [facility] in [place] on 06/09/19, report not yet available but EF documented >70%. Onset: Gradual Duration: Getting Worse Location: Reports: Chest Severity: Moderate Improves with: Reports: None Worsens with: Reports: None Associated Symptoms: Reports: No Other Symptoms Left Chest Pain Score (Numeric/FACES): 4 - Related Data Allergies Allergy/AdvReac Type Severity Reaction Status Date / Time amoxicillin [From Augmentin] Allergy Nausea and Verified 06/12/19 09:57 Vomiting clavulanic acid Allergy Nausea and Verified 06/12/19 09:57 [From Augmentin] Vomiting Home Meds: Home Meds Acetaminophen [Tylenol] 2 tab PO Q4H PRN 10/16/16 [History] Albuterol Sulfate [Proventil Hfa] 2 inh INH Q4H PRN 10/16/16 [History] Budesonide/Formoterol Fumarate [Symbicort 160-4.5 Mcg Inhaler] 2 inh INH BID [History] Calcium Carb, Citrate/Vit D3 [Calcium + D3 ER Tablet] 1 tab PO DAILY 10/16/16 [ History] Docusate Sodium [Colace] 1 tab PO DAILY 10/16/16 [History] Furosemide [Lasix] 1 tab PO DAILY 10/16/16 [History] Gabapentin [Neurontin] 1 tab PO TID 10/16/16 [History] Garlic 1 tab PO DAILY 10/16/16 [History] Levothyroxine 1 tab PO DAILY 10/16/16 [History] Multivitamin [Multi-Vitamin Daily] 1 tab PO DAILY 10/16/16 [History] Polyethylene Glycol 3350 [MiraLAX] 17 gm PO ASDIRECTED PRN 10/16/16 [History] Spironolactone [Aldactone] 12.5 mg PO DAILY 10/16/16 [History] Tiotropium [Spiriva HandiHaler] 1 inh INH DAILY 10/16/16 [History] Warfarin Sodium [Jantoven] 1 tab PO ASDIRECTED 10/16/16 [History] Warfarin Sodium [Jantoven] 1 tab PO ASDIRECTED 10/16/16 [History] Allopurinol [Zyloprim] 300 mg PO DAILY 06/12/19 [History] DULoxetine [Cymbalta] 60 mg PO DAILY 06/12/19 [History] Losartan [Cozaar] 25 mg PO DAILY 06/12/19 [History] oxyCODONE HCl/Acetaminophen [Endocet 5-325 Tablet] 1 tab PO Q6H PRN 06/12/19 [ History] traZODone HCl [Trazodone HCl] 50 mg PO DAILY 06/12/19 [History] Past Medical History Cardiovascular History: Reports: Heart Failure, Hypertension Respiratory History: Reports: COPD, Sleep Apnea Gastrointestinal History: Reports: Chronic Constipation Musculoskeletal History: Reports: Arthritis Endocrine/Metabolic History: Reports: Hypothyroidism - Past Surgical History Musculoskeletal Surgical History: Reports: Knee Replacement Social & Family History - Family History Family Medical History: Noncontributory - Caffeine Use Caffeine Use: Reports: Coffee, Soda, Tea ED ROS GENERAL - Review of Systems Review Of Systems: Comprehensive ROS is negative, except as noted in HPI. ED EXAM, GENERAL - Physical Exam Exam: See Below Exam Limited By: No Limitations General Appearance: Alert, No Apparent Distress, Other (Chronically ill appearing) Nose: Normal Inspection, Normal Mucosa, No Blood Throat/Mouth: Normal Lips, Normal Oropharynx, Normal Voice, No Airway Compromise Head: Atraumatic, Normocephalic Neck: Normal Inspection, Supple, Non-Tender, Full Range of Motion. No: Lymphadenopathy (L), Lymphadenopathy (R) Respiratory/Chest: No Respiratory Distress, No Accessory Muscle Use, Decreased Breath Sounds (in B/L bases), Crackles, Wheezing. No: Rales, Rhonchi, Stridor Cardiovascular: No Edema, No JVD, Irregularly Irregular (rate in 80s) GI/Abdominal: Normal Bowel Sounds, Soft, Non-Tender, No Organomegaly, No Distention, No Abnormal Bruit, No Mass Back Exam: Normal Inspection Extremities: Normal Range of Motion, Non-Tender, Other (Chronic venous stasis changes to B/L lower legs). No: Joint Swelling, Redness Neurological: Alert, Oriented, CN II-XII Intact, Normal Cognition, Normal Gait, No Motor/Sensory Deficits Psychiatric: Normal Affect, Normal Mood Skin Exam: Warm, Dry, Intact EKG INTERPRETATION EKG Date: 06/12/19 Time: 10:10 Rhythm: A-Fib Rate (Beats/Min): 85 [place]: RAD-Right [place] Deviation P-Wave: Present QRS: Other (borderline low voltage in frontal leads) ST-T: Other (borderline T abnormalities, diffuse leads) QT: Normal Course - Vital Signs Last Recorded V/S: Last Vital Signs Temp 97.6 F 06/12/19 09:45 Pulse 83 06/12/19 09:56 Resp 20 06/12/19 09:45 BP 145/94 H 06/12/19 09:45 Pulse Ox 90 L 06/12/19 09:56 - Orders/Labs/Meds Orders: Active Orders 24 hr Category Date Time Status EKG 12 Lead [EKG Documentation Completion] [RC] STAT Care 06/12/19 09:56 Active RT Aerosol Therapy [RC] ASDIRECTED Care 06/12/19 09:56 Active Chest 2V [CR] Stat Exams 06/12/19 09:56 Taken Labs: Laboratory Tests 06/12/19 06/12/19 06/12/19 Range/Units 10:06 10:06 10:06 WBC 6.6 (5.0-10.0) 10^3/uL RBC 5.70 (4.6-6.2) 10^6/uL Hgb 15.7 D (14.0-18.0) g/dL Hct 49.4 (40.0-54.0) % MCV 86.7 D (80-100) fL MCH 27.5 (27.0-34.0) pg MCHC 31.8 L (33.0-35.0) g/dL Plt Count 204 (150-450) 10^3/uL Neut % (Auto) 69.8 (42.2-75.2) % Lymph % (Auto) 16.9 L (20.5-50.1) % [place] % (Auto) 10.9 H (2-8) % Eos % (Auto) 1.8 (1.0-3.0) % Baso % (Auto) 0.6 (0.0-1.0) % PT 19.2 H D (9.0-12.0) SEC INR 1.9 H (0.9-1.2) Sodium 139 (135-145) mmol/L Potassium 4.1 (3.6-5.0) mmol/L Chloride 99 L (101-111) mmol/L Carbon Dioxide 30.0 (21.0-31.0) mmol/L Anion Gap 14.1 BUN 18 D (7-18) mg/dL Creatinine 1.0 (0.6-1.3) mg/dL Est Cr Clr Drug Dosing TNP Estimated GFR (MDRD) > 60 BUN/Creatinine Ratio 18.00 Glucose 113 H (74-105) mg/dL Lactic Acid (0.5-2.0) mmol/L Calcium 9.6 (8.4-10.2) mg/dl Total Bilirubin 2.0 H (0.2-1.0) mg/dL AST 27 (10-42) IU/L ALT 20 (10-60) IU/L Alkaline Phosphatase 75 (42-121) IU/L Troponin I 0.04 H* (0.00-0.02) ng/ml B-Natriuretic Peptide 278 H (0-100) pg/ml Total Protein 7.3 (6.7-8.2) g/dl Albumin 4.4 (3.2-5.5) g/dl Globulin 2.9 Albumin/Globulin Ratio 1.52 06/12/19 06/12/19 Range/Units 10:06 11:22 WBC (5.0-10.0) 10^3/uL RBC (4.6-6.2) 10^6/uL Hgb (14.0-18.0) g/dL Hct (40.0-54.0) % MCV (80-100) fL MCH (27.0-34.0) pg MCHC (33.0-35.0) g/dL Plt Count (150-450) 10^3/uL Neut % (Auto) (42.2-75.2) % Lymph % (Auto) (20.5-50.1) % [place] % (Auto) (2-8) % Eos % (Auto) (1.0-3.0) % Baso % (Auto) (0.0-1.0) % PT (9.0-12.0) SEC INR (0.9-1.2) Sodium (135-145) mmol/L Potassium (3.6-5.0) mmol/L Chloride (101-111) mmol/L Carbon Dioxide (21.0-31.0) mmol/L Anion Gap BUN (7-18) mg/dL Creatinine (0.6-1.3) mg/dL Est Cr Clr Drug Dosing Estimated GFR (MDRD) BUN/Creatinine Ratio Glucose (74-105) mg/dL Lactic Acid 1.5 (0.5-2.0) mmol/L Calcium (8.4-10.2) mg/dl Total Bilirubin (0.2-1.0) mg/dL AST (10-42) IU/L ALT (10-60) IU/L Alkaline Phosphatase (42-121) IU/L Troponin I 0.05 H* (0.00-0.02) ng/ml B-Natriuretic Peptide (0-100) pg/ml Total Protein (6.7-8.2) g/dl Albumin (3.2-5.5) g/dl Globulin Albumin/Globulin Ratio Meds: Medications Discontinued Medications Generic Name Dose Route Start Last Admin Trade Name Ham PRN Reason Stop Dose Admin Albuterol/Ipratropium 3 ml 06/12/19 09:55 06/12/19 10:00 Duoneb 3.0-0.5 Mg/3 Ml NEB 06/12/19 09:56 3 ml ONETIME ONE Administration Methylprednisolone Sodium Succinate 125 mg 06/12/19 09:57 06/12/19 10:11 Solu-Medrol IVPUSH 06/12/19 09:58 125 mg ONETIME ONE Administration - Radiology Interpretation Free Text/Narrative:: [facility] Final Radiology Report Call: [phone] assistance Online chat: [email or web address] Name: FAYE SOTOMAYOR Age: 74Years M Date: 06/12/2019 SSN: -- : [id number] Study: XR CHEST 2 VIEWS FRONTAL & LAT Requesting Physician: ANASTASIIA KHALIL Images: 2 Addl Studies: Provided Clinical History: Contrast: Contrast Medium: Contrast Amount: Contrast Method: CONFIDENTIALITY STATEMENT This report is intended only for use by the referring physician, and only in accordance with law. If you received this in error, call [phone]. Page 1 of 1 PROCEDURE INFORMATION: Exam: XR Chest, 2 Views Exam date and time: 06/12/2019 9:57 AM Age: 74 years old Clinical indication: Shortness of breath and other: HX copd TECHNIQUE: Imaging protocol: XR of the chest Views: 2 views. COMPARISON: CR Chest 1V Frontal 10/16/2016 8:44 PM FINDINGS: Lungs: There is again mild bilateral interstitial prominence, mid and lower lung field predominant, could reflect edema or pneumonitis. No new focal consolidation. The lungs are again hyperinflated. Pleural space: Unremarkable. No pleural effusion. No pneumothorax. Heart/Mediastinum: There is similar cardiomegaly. Bones/joints: A left shoulder prosthesis is newly present. Some chronic left rib fractures are again present. IMPRESSION: Hyperinflation with mild bilateral interstitial prominence, could reflect edema or pneumonitis. Thank you for allowing us to participate in the care of your patient. Dictated and Authenticated by: Yosvany Anand MD 06/12/2019 11:13 AM Central Time ([place] & [place]) - Re-Assessments/Exams Free Text/Narrative Re-Assessment/Exam: 06/12/19 12:09 I had planned to admit the pt here, however with repeat Troponin increasing from 0.[address] London advises the pt will need to be transferred to [facility] in . Dr. Penaloza accepts the pt as a direct admit to [facility]. Departure - Departure Time of Disposition: 12:10 Disposition: DC/Tfer to Acute Hospital 02 Condition: Serious Clinical Impression: Acute exacerbation of chronic obstructive pulmonary disease (COPD), Recurrent chest pain, Elevated troponin - Discharge Information *PRESCRIPTION DRUG MONITORING PROGRAM REVIEWED*: Not Applicable *COPY OF PRESCRIPTION DRUG MONITORING REPORT IN PATIENT GENE: Not Applicable Forms: ED Department Discharge, Interfacility Transfer MELVINA Sepsis Event Note - Focused Exam Vital Signs: Vital Signs Temp Pulse Resp BP Pulse Ox Pulse Ox 06/12/19 09:56 83 90 L 06/12/19 09:45 97.6 F 81 20 145/94 H 76 L Date Exam was Performed: 06/12/19 Time Exam was Performed: 12:07 - My Orders Last 24 Hours: My Active Orders 06/12/19 09:56 EKG 12 Lead [EKG Documentation Completion] [RC] STAT RT Aerosol Therapy [RC] ASDIRECTED Chest 2V [CR] Stat - Assessment/Plan Last 24 Hours: My Active Orders 06/12/19 09:56 EKG 12 Lead [EKG Documentation Completion] [RC] STAT RT Aerosol Therapy [RC] ASDIRECTED Chest 2V [CR] Stat I have read and agree with the documentation that has been completed regarding this visit. By signing this record, I attest that the documentation was completed in my physical presence and is an accurate record of the encounter.
== END 2019-06-12 13:03 ==
LOC: DL.ED 09:30
DX: J44.1 Chronic obstructive pulmonary disease with (acute) exacerbation (principal); R79.89 Other specified abnormal findings of blood chemistry; I11.0 Hypertensive heart disease with heart failure; I50.9 Heart failure, unspecified; E03.9 Hypothyroidism, unspecified; Z79.899 Other long term (current) drug therapy; Z88.8 Allergy status to other drugs, medicaments and biological substances; Z88.1 Allergy status to other antibiotic agents
CPT/HCPCS: 36415; 71046; 80053; 83605; 83880; 84484; 85025; 85610; 87804; 93005; 94640; 96372; 99285; J2930; 93010; 99284; J7620-GY

== ENCOUNTER 2020-04-28 22:28 | Emergency (ER) | payer MEDICARE, OTHER ==
[2020-04-28] MEDS ORDERED: Acetaminophen/oxyCODONE 325-5 MG Tab PO ONE (22:29)
[2020-04-28] MEDS ORDERED: fentaNYL 100 MCG/2 ML SDV IVPUSH ONE (22:54)
--- NOTE | 2020-04-28 22:54 | EDM.PDOC ---
ED HPI GENERAL MEDICAL PROBLEM - General Chief Complaint: Lower Extremity Injury/Pain Stated Complaint: RIGHT LEG LARGE BRUISE Time Seen by Provider: 04/28/20 22:49 Source of Information: Reports: Patient History Limitations: Reports: No Limitations - History of Present Illness INITIAL COMMENTS - FREE TEXT/NARRATIVE: fell onto right knee Thursday and getting worse with swelling on leg area and more bruising. take coumadin. hurts more tonight. Right Lower Leg Pain Score (Numeric/FACES): 10 - Related Data Allergies Allergy/AdvReac Type Severity Reaction Status Date / Time amoxicillin [From Augmentin] Allergy Nausea and Verified 04/28/20 22:36 Vomiting clavulanic acid Allergy Nausea and Verified 04/28/20 22:36 [From Augmentin] Vomiting Home Meds: Home Meds Acetaminophen [Tylenol] 2 tab PO Q4H PRN 10/16/16 [History] Albuterol Sulfate [Proventil Hfa] 2 inh INH Q4H PRN 10/16/16 [History] Budesonide/Formoterol Fumarate [Symbicort 160-4.5 Mcg Inhaler] 2 inh INH BID 10/16/16 [History] Calcium Carb, Citrate/Vit D3 [Calcium + D3 ER Tablet] 1 tab PO DAILY 10/16/16 [History] Docusate Sodium [Colace] 1 tab PO DAILY 10/16/16 [History] Furosemide [Lasix] 1 tab PO DAILY 10/16/16 [History] Gabapentin [Neurontin] 1 tab PO TID 10/16/16 [History] Garlic 1 tab PO DAILY 10/16/16 [History] Levothyroxine 1 tab PO DAILY 10/16/16 [History] Multivitamin [Multi-Vitamin Daily] 1 tab PO DAILY 10/16/16 [History] Polyethylene Glycol 3350 [MiraLAX] 17 gm PO ASDIRECTED PRN 10/16/16 [History] Spironolactone [Aldactone] 12.5 mg PO DAILY 10/16/16 [History] Tiotropium [Spiriva HandiHaler] 1 inh INH DAILY 10/16/16 [History] Warfarin Sodium [Jantoven] 1 tab PO ASDIRECTED 10/16/16 [History] Warfarin Sodium [Jantoven] 1 tab PO ASDIRECTED 10/16/16 [History] Allopurinol [Zyloprim] 300 mg PO DAILY 06/12/19 [History] DULoxetine [Cymbalta] 60 mg PO DAILY 06/12/19 [History] Losartan [Cozaar] 25 mg PO DAILY 06/12/19 [History] oxyCODONE HCl/Acetaminophen [Endocet 5-325 Tablet] 1 tab PO Q6H PRN 06/12/19 [History] traZODone HCl [Trazodone HCl] 50 mg PO DAILY 06/12/19 [History] Past Medical History Cardiovascular History: Reports: Heart Failure, Hypertension Respiratory History: Reports: COPD, Sleep Apnea Gastrointestinal History: Reports: Chronic Constipation Genitourinary History: Reports: Other (See Below) Other Genitourinary History: Stage III CKD with microalbumiuria Musculoskeletal History: Reports: Arthritis Endocrine/Metabolic History: Reports: Hypothyroidism Hematologic History: Reports: Anemia, Other (See Below) Other Hematologic History: anemia of chronic disease - Past Surgical History Musculoskeletal Surgical History: Reports: Knee Replacement Social & Family History - Family History Family Medical History: No Pertinent Family History - Caffeine Use Caffeine Use: Reports: Coffee, Soda, Tea Review of Systems - Review of Systems Review Of Systems: Comprehensive ROS is negative, except as noted in HPI. ED EXAM, GENERAL - Physical Exam Exam: See Below Exam Limited By: No Limitations General Appearance: Alert, WD/WN, Mild Distress, Moderate Distress, Other (discomfort) Ears: Hearing Grossly Normal Throat/Mouth: Normal Voice, No Airway Compromise Head: Atraumatic Neck: Non-Tender, Full Range of Motion Respiratory/Chest: No Respiratory Distress Cardiovascular: Regular Rate, Rhythm GI/Abdominal: Soft, Non-Tender (Male) Exam: Deferred Rectal (Males) Exam: Deferred Extremities: Other (moderate swelling right knee and calf area with large ecchymosis. pedal pulse present, wieght bearing limited to pain) Neurological: Alert, Oriented, Normal Cognition, No Motor/Sensory Deficits Psychiatric: Tearful Skin Exam: Warm, Dry, Normal Color Lymphatic: No Adenopathy Course - Vital Signs Last Recorded V/S: Last Vital Signs Temp 36.2 C 04/28/20 22:35 Pulse 72 04/28/20 22:35 Resp 18 04/28/20 22:35 BP 101/81 04/28/20 22:35 Pulse Ox 94 L 04/28/20 22:40 - Orders/Labs/Meds Orders: Active Orders 24 hr Category Date Time Status Venous Doppler Lwr Ext Rt [US] Urgent Exams 04/28/20 23:17 Ordered Labs: Laboratory Tests 04/28/20 04/28/20 04/28/20 Range/Units 23:00 23:00 23:00 WBC 9.1 (5.0-10.0) 10^3/uL RBC 3.95 L (4.6-6.2) 10^6/uL Hgb 13.3 L D (14.0-18.0) g/dL Hct 39.6 L (40.0-54.0) % MCV 100.3 H D (80-100) fL MCH 33.7 (27.0-34.0) pg MCHC 33.6 (33.0-35.0) g/dL Plt Count 187 (150-450) 10^3/uL Neut % (Auto) 61.4 (42.2-75.2) % Lymph % (Auto) 25.1 (20.5-50.1) % Martin % (Auto) 9.9 H (2-8) % Eos % (Auto) 3.2 H (1.0-3.0) % Baso % (Auto) 0.4 (0.0-1.0) % PT 27.4 H D (9.0-12.0) SEC INR 2.9 H (0.9-1.2) Sodium 140 (136-145) mmol/L Potassium 4.4 (3.5-5.1) mmol/L Chloride 103 (98-107) mmol/L Carbon Dioxide 32 (21-32) mmol/L Anion Gap 9.4 (7-13) mEq/L BUN 24 H (7-18) mg/dL Creatinine 1.56 H (0.70-1.30) mg/dL Est Cr Clr Drug Dosing TNP Estimated GFR (MDRD) 44 BUN/Creatinine Ratio 15.4 (No establ ref range) Glucose 117 H (74-99) mg/dL Calcium 9.0 (8.5-10.1) mg/dL Total Bilirubin 0.7 (0.2-1.0) mg/dL AST 20 (15-37) U/L ALT 19 (16-63) U/L Alkaline Phosphatase 91 (46-116) U/L Total Protein 6.6 (6.4-8.2) g/dL Albumin 3.5 (3.4-5.0) g/dL Globulin 3.1 Albumin/Globulin Ratio 1.1 Meds: Medications Discontinued Medications Generic Name Dose Route Start Last Admin Trade Name Ham PRN Reason Stop Dose Admin Fentanyl 50 mcg 04/28/20 22:54 04/28/20 23:01 Sublimaze IVPUSH 04/28/20 22:55 50 mcg ONETIME ONE Administration Hydromorphone HCl 1 mg 04/28/20 23:27 04/28/20 23:34 Dilaudid IVPUSH 04/28/20 23:28 1 mg ONETIME ONE Administration Ondansetron HCl 4 mg 04/28/20 23:27 04/28/20 23:32 Zofran IVPUSH 04/28/20 23:28 4 mg ONETIME ONE Administration - Re-Assessments/Exams Free Text/Narrative Re-Assessment/Exam: 04/29/20 00:40 results discussed with pt and family Departure - Departure Time of Disposition: 00:41 Disposition: Home, Self-Care 01 Condition: Good Clinical Impression: Hematoma of right lower leg - Discharge Information Forms: ED Department Discharge Additional Instructions: 1) elevate right leg as much as possible next 48 hours 2) do not take coumadin tomorrow 3) see clinic Thursday for recheck and resume coumadin 4) recheck if there is any change or concern Sepsis Event Note (ED) - Focused Exam Vital Signs: Vital Signs Temp Pulse Resp BP Pulse Ox 04/28/20 22:40 94 L 04/28/20 22:35 36.2 C 72 18 101/81 89 L - My Orders Last 24 Hours: My Active Orders 04/28/20 23:17 Venous Doppler Lwr Ext Rt [US] Urgent - Assessment/Plan Last 24 Hours: My Active Orders 04/28/20 23:17 Venous Doppler Lwr Ext Rt [US] Urgent
[2020-04-28] MEDS ORDERED: Ondansetron 4 MG/2 ML SDV IVPUSH ONE (23:27)
[2020-04-28] MEDS ORDERED: HYDROmorphone 1 MG/ML Syringe IVPUSH ONE (23:27)
--- NOTE | 2020-04-28 23:35 | CR ---
PROCEDURE INFORMATION: Exam: XR Right Knee Exam date and time: 04/28/2020 11:23 PM Age: 75 years old Clinical indication: Other: Fell 3 days ago--pain/swelling/bruising; Prior surgery; Additional info: Gricelda, h/o knee replacement TECHNIQUE: Imaging protocol: XR Right knee. Views: 1 or 2 views. COMPARISON: No relevant prior studies available. FINDINGS: Mr. Lawrence is a 75-year-old male who is presenting with right knee pain status post trauma. Two views of the right knee are provided for further evaluation. There is a complete right knee arthroplasty without evidence of acute complications. Specifically, there is no evidence of hardware loosening or periprosthetic fractures. No acutely displaced fracture or dislocation is appreciated. No aggressive osseous lesions. No discrete joint effusions. No significant soft tissue swelling. IMPRESSION: No acute skeletal pathology or hardware complications.
[2020-04-28 23:37] LABS: ANION GAP 9.4 mEq/L (7-13); CHLORIDE,CL 103 mmol/L (98-107); SODIUM,NA 140 mmol/L (136-145)
--- NOTE | 2020-04-29 00:42 | US ---
PROCEDURE INFORMATION: Exam: US Duplex Right Lower Extremity Veins, Limited Exam date and time: 04/28/2020 11:43 PM Age: 75 years old Clinical indication: Pain; Leg, lower; Right; Prior surgery; Surgery date: 3-7 days post-operative; Surgery type: Knee surgery; Additional info: R/O dvt TECHNIQUE: Imaging protocol: Real-time Duplex ultrasound of the Right Lower Extremity with 2-D baig scale, color Doppler flow and spectral waveform analysis with image documentation. Limited exam was focused on the right lower extremity veins. COMPARISON: No relevant prior studies available. FINDINGS: Right deep veins: Unremarkable. The common femoral, femoral, proximal profunda femoral and popliteal veins are patent without thrombus. Normal Doppler waveforms. Normal compressibility and/or augmentation response. Right superficial veins: Unremarkable. Saphenofemoral junction is patent without thrombus. Soft tissues: There is a heterogeneous hypoechoic mass present in the right leg laterally most probably representing a large hematoma. IMPRESSION: 1. No evidence of deep vein thrombosis. 2. Hypoechoic complex mass within the right leg laterally likely represents a large hematoma.
[2020-04-29] MEDS ORDERED: Acetaminophen/oxyCODONE 325-5 MG Tab ONE (00:58)
[2020-04-29 01:24] VITALS: BP 83/55; PULSE 76
== END 2020-04-29 01:05 | disposition home or self-care (01) ==
LOC: DL.ED 22:28
DX: S80.11XA Contusion of right lower leg, initial encounter (principal); I13.0 Hypertensive heart and chronic kidney disease with heart failure and stage 1 through stage 4 chronic kidney disease, or unspecified chronic kidney disease; I50.9 Heart failure, unspecified; N18.30 Chronic kidney disease, stage 3 unspecified; J44.9 Chronic obstructive pulmonary disease, unspecified; E03.9 Hypothyroidism, unspecified; Z88.0 Allergy status to penicillin; Z88.1 Allergy status to other antibiotic agents; Z79.01 Long term (current) use of anticoagulants; Z79.899 Other long term (current) drug therapy; W19.XXXA Unspecified fall, initial encounter
CPT/HCPCS: 36415; 73560; 80053; 85025; 85610; 93971; 96374; 96375; 99282; 99284; A9270; J1170; J2405; J3010

== ENCOUNTER 2020-05-18 18:02 | Inpatient (IN) | payer MEDICARE, OTHER ==
--- NOTE | 2020-05-18 18:53 | EDM.PDOC ---
<Chrissy Yo - Last Filed: 05/19/20 00:12> ED HPI GENERAL MEDICAL PROBLEM - General Chief Complaint: Laceration Stated Complaint: RIGHT VIGIL LACERATION Time Seen by Provider: 05/18/20 18:30 - Related Data Allergies Allergy/AdvReac Type Severity Reaction Status Date / Time amoxicillin [From Augmentin] Allergy Nausea and Verified 05/18/20 18:25 Vomiting clavulanic acid Allergy Nausea and Verified 05/18/20 18:25 [From Augmentin] Vomiting Home Meds: Home Meds Acetaminophen [Tylenol] 2 tab PO Q4H PRN 10/16/16 [History] Albuterol Sulfate [Proventil Hfa] 2 inh INH Q4H PRN 10/16/16 [History] Budesonide/Formoterol Fumarate [Symbicort 160-4.5 Mcg Inhaler] 2 inh INH BID 10/16/16 [History] Docusate Sodium [Colace] 100 mg PO DAILY 10/16/16 [History] Furosemide [Lasix] 40 mg PO DAILY 10/16/16 [History] Gabapentin [Neurontin] 300 mg PO TID 10/16/16 [History] Garlic 1 tab PO DAILY 10/16/16 [History] Multivitamin [Multi-Vitamin Daily] 1 tab PO DAILY 10/16/16 [History] Polyethylene Glycol 3350 [MiraLAX] 17 gm PO ASDIRECTED PRN 10/16/16 [History] Spironolactone [Aldactone] 12.5 mg PO DAILY 10/16/16 [History] Tiotropium [Spiriva HandiHaler] 1 inh INH DAILY 10/16/16 [History] Allopurinol [Zyloprim] 300 mg PO DAILY 06/12/19 [History] DULoxetine [Cymbalta] 60 mg PO DAILY 06/12/19 [History] Losartan [Cozaar] 25 mg PO DAILY 06/12/19 [History] oxyCODONE HCl/Acetaminophen [Endocet 5-325 Tablet] 1 tab PO Q6H PRN 06/12/19 [History] traZODone HCl [Trazodone HCl] 50 mg PO DAILY 06/12/19 [History] Warfarin [Coumadin] 3 mg PO .MON,WED,TH04/29/20 [History] Warfarin [Coumadin] 6 mg PO .THU,,FRI,SAT 04/29/20 [History] Levothyroxine [Synthroid] 88 mcg PO ACBREAKFAST 05/18/20 [History] fentaNYL [Duragesic] 50 patch TOP Q72H 05/18/20 [History] levoFLOXacin [Levaquin] 500 mg PO Q24H #10 tablet 05/20/20 [Rx] Course - Re-Assessments/Exams Free Text/Narrative Re-Assessment/Exam: 05/18/20 21:42 Dr Redman here to assess patient, I&D of wound with 4x4 packing. scant drainage. Departure - Departure Time of Disposition: 21:43 Disposition: Admitted As Inpatient 67 Condition: Good Clinical Impression: Abscess, Chronic a-fib, Chronic anticoagulation Cellulitis Qualifiers: Site of cellulitis: extremity Site of cellulitis of extremity: lower extremity Laterality: right Qualified Code(s): L03.115 - Cellulitis of right lower limb Left otitis media Qualifiers: Otitis media type: suppurative Chronicity: acute Recurrence: not specified as recurrent Spontaneous tympanic membrane rupture: without spontaneous rupture Qualified Code(s): H66.002 - Acute suppurative otitis media without spontaneous rupture of ear drum, left ear - Discharge Information *PRESCRIPTION DRUG MONITORING PROGRAM REVIEWED*: No *COPY OF PRESCRIPTION DRUG MONITORING REPORT IN PATIENT GENE: No <Sandy Guevara - Last Filed: 05/21/20 11:40> ED HPI GENERAL MEDICAL PROBLEM - General Source of Information: Reports: Patient, Family (Daughter - Sandra), RN, RN Notes Reviewed History Limitations: Reports: No Limitations - History of Present Illness INITIAL COMMENTS - FREE TEXT/NARRATIVE: Patient presents to the ED via personal vehicle with daughter for complaints of wounds, erythema, and swelling to the right lower extremity. The patient states the wounds presented following a fall on April 25. He developed a large hematoma to this leg that eventually opened in two areas. He presents today with his daughter who is concerned that it is not healing. The patient states he has been continually pressing on the open areas and "...pushing the drainage out." He has been to his primary care provider multiple times since the fall; the patient is not followed by wound care or home health. He does report of history of PAD, but denies DM or HTN. He denies recent illness, fever, shaking chills, palpitations, chest pain, and loss of motor function to the extremity. He does attest to decreased sensory function to the bilateral lower extremities, this is not new. Past Medical History Cardiovascular History: Reports: Blood Clots/VTE/DVT, Heart Failure, Hypertension Respiratory History: Reports: COPD, Sleep Apnea Gastrointestinal History: Reports: Chronic Constipation Genitourinary History: Reports: Other (See Below) Other Genitourinary History: Stage III CKD with microalbumiuria Musculoskeletal History: Reports: Arthritis Endocrine/Metabolic History: Reports: Hypothyroidism Hematologic History: Reports: Anemia, Other (See Below) Other Hematologic History: anemia of chronic disease - Infectious Disease History Infectious Disease History: Reports: Chicken Pox - Past Surgical History HEENT Surgical History: Reports: Cataract Surgery, Tonsillectomy GI Surgical History: Reports: Appendectomy Musculoskeletal Surgical History: Reports: Knee Replacement Other Musculoskeletal Surgeries/Procedures:: rt knee replacement, rt hip replacement, rt shoulder replacement, lt shoulder repair Social & Family History - Family History Family Medical History: No Pertinent Family History - Tobacco Use Tobacco Use Status *Q: Never Tobacco User - Caffeine Use Caffeine Use: Reports: Coffee - Recreational Drug Use Recreational Drug Use: No ED ROS GENERAL - Review of Systems Review Of Systems: Comprehensive ROS is negative, except as noted in HPI. ED EXAM, SKIN/RASH Exam: See Below Exam Limited By: No Limitations General Appearance: Alert, No Apparent Distress Ears: Normal External Exam, Normal Canal. No: Normal TMs (Bulging right TM with purulent drainage behind TM) Nose: Normal Inspection. No: Nasal Tenderness, Nasal Swelling, Nasal Drainage Throat/Mouth: Normal Inspection, Normal Voice, No Airway Compromise Head: Atraumatic, Normocephalic Neck: Normal Inspection, Supple, Non-Tender, Full Range of Motion. No: Lymphadenopathy (L), Lymphadenopathy (R) Respiratory/Chest: No Respiratory Distress, Normal Breath Sounds, No Accessory Muscle Use, Chest Non-Tender, Decreased Breath Sounds Cardiovascular: Normal Peripheral Pulses, Regular Rate, Rhythm, No Edema, No Gallop, No JVD, No Murmur, No Rub Peripheral Pulses: 2+: Radial (L), Radial (R), Dorsalis Pedis (L), Dorsalis Pedis (R) Back Exam: Normal Inspection, Full Range of Motion Extremities: Joint Swelling, Leg Pain (To right lower extremity; Large open wound to lateral aspect; Large scabbed wound to anterior knee), Limited Range of Motion, Increased Warmth (To right lower extremity from knee to toes), Redness (To right lower extremity from knee to toes). No: Mottled, Pallor Neurological: Alert, Oriented, CN II-XII Intact, No Motor/Sensory Deficits Psychiatric: Normal Affect, Normal Mood Skin: Erythema (To right lower extremity), Wound/Incision (Large open wound to lateral aspect of right lower extremity; Large scabbed wound to anterior right lower extremity). No: Ecchymosis, Jaundice, Mottled, Pallor, Petechiae Location, Skin: Lower Extremity, Right Associated features: Warmth, Tenderness, Swelling, Inflammation, Weeping Course - Vital Signs Last Recorded V/S: Last Vital Signs Temp 98.6 F 05/20/20 07:49 Pulse 72 05/20/20 07:51 Resp 16 05/20/20 07:49 BP 136/69 05/20/20 09:09 Pulse Ox 92 L 05/20/20 07:51 - Orders/Labs/Meds Labs: Laboratory Tests 05/18/20 05/18/20 05/18/20 Range/Units 18:34 18:34 18:34 WBC 8.5 (5.0-10.0) 10^3/uL RBC 4.28 L (4.6-6.2) 10^6/uL Hgb 14.0 (14.0-18.0) g/dL Hct 43.5 (40.0-54.0) % MCV 101.6 H (80-100) fL MCH 32.7 (27.0-34.0) pg MCHC 32.2 L (33.0-35.0) g/dL Plt Count 252 (150-450) 10^3/uL Neut % (Auto) 57.7 (42.2-75.2) % Lymph % (Auto) 22.4 (20.5-50.1) % Lynn % (Auto) 17.3 H (2-8) % Eos % (Auto) 2.2 (1.0-3.0) % Baso % (Auto) 0.4 (0.0-1.0) % PT 21.5 H (9.0-12.0) SEC INR 2.3 H (0.9-1.2) APTT 39.6 H (22.0-34.0) SEC Sodium 141 (136-145) mmol/L Potassium 4.5 (3.5-5.1) mmol/L Chloride 103 (98-107) mmol/L Carbon Dioxide 35 H (21-32) mmol/L Anion Gap 7.5 (7-13) mEq/L BUN 26 H (7-18) mg/dL Creatinine 1.18 (0.70-1.30) mg/dL Est Cr Clr Drug Dosing 65.64 mL/min Estimated GFR (MDRD) > 60 BUN/Creatinine Ratio 22.0 (No establ ref range) Glucose 104 H (74-99) mg/dL Lactic Acid (0.4-2.0) mmol/L Calcium 8.9 (8.5-10.1) mg/dL Total Bilirubin 1.0 (0.2-1.0) mg/dL AST 22 (15-37) U/L ALT 22 (16-63) U/L Alkaline Phosphatase 128 H (46-116) U/L Lactate Dehydrogenase 290 H (85-227) U/L C-Reactive Protein 5.0 H (0.0-0.9) mg/dL Total Protein 6.6 (6.4-8.2) g/dL Albumin 3.2 L (3.4-5.0) g/dL Globulin 3.4 Albumin/Globulin Ratio 0.94 /15/ Range/Units 18:34 WBC (5.0-10.0) 10^3/uL RBC (4.6-6.2) 10^6/uL Hgb (14.0-18.0) g/dL Hct (40.0-54.0) % MCV (80-100) fL MCH (27.0-34.0) pg MCHC (33.0-35.0) g/dL Plt Count (150-450) 10^3/uL Neut % (Auto) (42.2-75.2) % Lymph % (Auto) (20.5-50.1) % Lynn % (Auto) (2-8) % Eos % (Auto) (1.0-3.0) % Baso % (Auto) (0.0-1.0) % PT (9.0-12.0) SEC INR (0.9-1.2) APTT (22.0-34.0) SEC Sodium (136-145) mmol/L Potassium (3.5-5.1) mmol/L Chloride (98-107) mmol/L Carbon Dioxide (21-32) mmol/L Anion Gap (7-13) mEq/L BUN (7-18) mg/dL Creatinine (0.70-1.30) mg/dL Est Cr Clr Drug Dosing mL/min Estimated GFR (MDRD) BUN/Creatinine Ratio (No establ ref range) Glucose (74-99) mg/dL Lactic Acid 1.8 (0.4-2.0) mmol/L Calcium (8.5-10.1) mg/dL Total Bilirubin (0.2-1.0) mg/dL AST (15-37) U/L ALT (16-63) U/L Alkaline Phosphatase (46-116) U/L Lactate Dehydrogenase (85-227) U/L C-Reactive Protein (0.0-0.9) mg/dL Total Protein (6.4-8.2) g/dL Albumin (3.4-5.0) g/dL Globulin Albumin/Globulin Ratio Meds: Medications Discontinued Medications Generic Name Dose Route Start Last Admin Trade Name Freq PRN Reason Stop Dose Admin Acetaminophen 650 mg 05/18/20 23:07 Tylenol PO Q4H PRN Pain (Mild 1-3)/fever Acetaminophen 650 mg 05/18/20 23:10 Tylenol PO Q4H PRN mild pain Albuterol/Ipratropium 3 ml 05/18/20 23:13 Duoneb 3.0-0.5 Mg/3 Ml NEB Q4HRRT PRN sob Allopurinol 300 mg 05/19/20 09:00 05/20/20 09:09 Zyloprim PO 300 mg DAILY CHIKIS Administration Budesonide 0.5 mg 05/19/20 07:00 05/20/20 07:48 Pulmicort NEB 0.5 mg BIDRT CHIKIS Administration Diphenhydramine HCl 25 mg 05/18/20 23:08 05/19/20 20:53 Benadryl PO 25 mg BEDTIME PRN Administration Sleep Docusate Sodium 100 mg 05/19/20 09:00 05/20/20 09:05 Colace PO 100 mg DAILY CHIKIS Administration Duloxetine HCl 60 mg 05/19/20 09:00 05/20/20 09:06 Cymbalta PO 60 mg DAILY CHIKIS Administration Fentanyl 50 mcg 05/20/20 09:00 05/20/20 09:16 Duragesic TOP 50 mcg Q72H CHIKIS Administration Furosemide 40 mg 05/19/20 09:00 05/20/20 09:07 Lasix PO 40 mg DAILY CHIKIS Administration Gabapentin 300 mg 05/19/20 09:00 05/20/20 13:45 Neurontin PO Not Given TID CHIKIS Heparin Sodium (Porcine) 5,000 units 05/19/20 06:00 Heparin Sodium SUBCUT Q8HR [facility] Piperacillin Sod/Tazobactam 100 mls @ 200 mls/hr 05/19/20 00:00 05/19/20 12:54 Sod 3.375 gm/ Sodium Chloride IV Not Given Q6H CHIKIS Vancomycin HCl 300 mls @ 200 mls/hr 05/19/20 01:00 05/19/20 00:14 Vancomycin 1.5 Gm/300 Ml Premix IV 200 mls/hr Q12H CHIKIS Administration Iopamidol 100 ml 05/18/20 19:23 05/18/20 19:52 Isovue-300 (61%) IVPUSH 05/18/20 19:24 100 ml ONETIME ONE Administration Levofloxacin 500 mg 05/19/20 13:00 05/20/20 12:26 Levaquin PO 500 mg Q24H CHIKIS Administration Levothyroxine Sodium 88 mcg 05/19/20 06:00 05/20/20 05:52 Synthroid PO 88 mcg ACBREAKFAST CHIKIS Administration Losartan Potassium 25 mg 05/19/20 09:00 05/20/20 09:09 Cozaar PO 25 mg DAILY CHIKIS Administration Multivitamins 1 each 05/19/20 09:00 05/20/20 09:08 Thera PO 1 each DAILY CHIKIS Administration Ondansetron HCl 4 mg 05/18/20 23:07 Zofran Odt PO Q6H PRN nausea, able to take PO Oxycodone/Acetaminophen 1 tab 05/18/20 23:10 05/20/20 09:06 Percocet 325-5 Mg PO 1 tab Q6H PRN Administration moderate pain Polyethylene Glycol 17 gm 05/18/20 23:10 05/20/20 09:10 Miralax PO 17 gm ASDIRECTED PRN Administration Constipation Sodium Chloride 10 ml 05/18/20 23:07 Saline Flush FLUSH ASDIRECTED PRN Keep Vein Open Spironolactone 12.5 mg 05/19/20 09:00 05/20/20 09:08 Aldactone PO 12.5 mg DAILY CHIKIS Administration Tiotropium Wilson 18 mcg 05/19/20 09:00 05/20/20 09:11 Spiriva Handihaler INH 18 mcg DAILY CHIKIS Administration Vancomycin HCl 1 dose 05/18/20 23:15 Pharmacy To Dose - Vancomycin .XX ASDIRECTED CHIKIS Warfarin Sodium 1 dose 05/18/20 23:00 Pharmacy To Dose - Warfarin .XX ASDIRECTED CHIKIS Warfarin Sodium 6 mg 05/19/20 14:00 05/19/20 13:32 Coumadin PO 05/19/20 14:01 6 mg ONETIME ONE Administration Warfarin Sodium 6 mg 05/20/20 14:00 05/20/20 13:44 Coumadin PO 05/20/20 14:01 Not Given ONETIME ONE Zolpidem Tartrate 5 mg 05/18/20 23:05 05/19/20 20:52 Ambien PO 5 mg BEDTIME PRN Administration for sleep Sepsis Event Note (ED) - Evaluation Sepsis Screening Result: No Definite Risk
[2020-05-18 18:54] LABS: PTT,PARTIAL THROMBOPLSTIN TIME 39.6 SEC (22.0-34.0)
[2020-05-18 19:05] LABS: ANION GAP 7.5 mEq/L (7-13); CHLORIDE,CL 103 mmol/L (98-107); SODIUM,NA 141 mmol/L (136-145)
[2020-05-18] MEDS ORDERED: Iopamidol 612 MG/ML 100 ML Bottle IVPUSH ONE (19:23)
--- NOTE | 2020-05-18 21:27 | CT ---
PROCEDURE INFORMATION: Exam: CT Right Lower Extremity With Contrast; Lower Leg Exam date and time: 05/18/2020 7:55 PM Age: 75 years old Clinical indication: Edema and swelling, leg or foot; Location not specified; Additional info: Wound, swollen redness TECHNIQUE: Imaging protocol: CT of the Right lower extremity with intravenous contrast was performed. Exam focused on the lower leg. Radiation optimization: All CT scans at this facility use at least one of these dose optimization techniques: automated exposure control; mA and/or kV adjustment per patient size (includes targeted exams where dose is matched to clinical indication); or iterative reconstruction. Contrast material: [id number]; Contrast volume: 100 ml; Contrast route: INTRAVENOUS (IV); COMPARISON: CR Knee 1V or 2V Rt 04/28/2020 11:23 PM FINDINGS: Bones/joints: There is a right total knee arthroplasty. Soft tissues: Subcutaneous gas and peripherally enhancing fluid collection along lateral aspect of the proximal lower leg measuring 9.8 by 1.4 cm. Consistent with abscess. New Vasculature: Intimal arterial calcification. Arthritis of the foot and ankle.There are no suspicious lytic or osteosclerotic lesions. IMPRESSION: Superficial abscess along lateral aspect of the proximal right lower leg. PROCEDURE INFORMATION: Exam: CT Left Lower Extremity With Contrast; Lower Leg Exam date and time: 05/18/2020 7:55 PM Age: 75 years old Clinical indication: Edema and swelling, leg or foot; Location not specified; Additional info: Wound, swollen redness TECHNIQUE: Imaging protocol: CT of the Left lower extremity with intravenous contrast was performed. Exam focused on the lower leg. COMPARISON: CR Knee 1V or 2V Rt 04/28/2020 11:23 PM FINDINGS: Bones/joints: Arthritis of the visible knee, foot and ankle.There are no suspicious lytic or osteosclerotic lesions. Soft tissues: Normal. IMPRESSION: No acute findings. Arthritis of the knee, foot, and ankle.
[2020-05-18] MEDS ORDERED: Acetaminophen 325 MG Tab PO PRN ×2 (23:07→23:10)
[2020-05-18] MEDS ORDERED: Sodium Chloride 0.9% 10 ML Syringe FLUSH PRN (23:07)
[2020-05-18] MEDS ORDERED: Ondansetron 4 MG Tab.DIS PO PRN (23:07)
[2020-05-18] MEDS ORDERED: Polyethylene Glycol 3350 Powder 17 GM Packet PO PRN (23:10)
[2020-05-18] MEDS ORDERED: Albuterol/Ipratropium 3.0-0.5 MG/3 ML Neb Soln NEB PRN (23:13)
--- NOTE | 2020-05-18 23:20 | PCM.HP ---
H&P History of Present Illness - General Date of Service: 05/18/20 Admit Problem/Dx: Admission Diagnosis/Problem Admission Diagnosis/Problem Cellulitis Source of Information: Patient, Provider - History of Present Illness Initial Comments - Free Text/Narative: 75-year-old with a history of atrial fibrillation, COPD, obstructive sleep apnea with CPAP at night, chronic anticoagulation for A. fib and history of pulmonary embolism and DVT Has a history of prior right knee replacement The patient injured the right lower extremity following a fall on 25 April. Developed an area of hematoma and later drainage. He didnt note significant redness around it, was not on outpatient antibiotics. Has been followed by primary care physician. When it was draining it was old blood clots coming, he noted no significant pus. no chills, no fever came Into the emergency room with the continued drainage and associated pain - Related Data Allergies/Adverse Reactions: Allergies Allergy/AdvReac Type Severity Reaction Status Date / Time amoxicillin [From Augmentin] Allergy Nausea and Verified 05/18/20 18:25 Vomiting clavulanic acid Allergy Nausea and Verified 05/18/20 18:25 [From Augmentin] Vomiting Home Medications: Home Meds Acetaminophen [Tylenol] 2 tab PO Q4H PRN 10/16/16 [History] Albuterol Sulfate [Proventil Hfa] 2 inh INH Q4H PRN 10/16/16 [History] Budesonide/Formoterol Fumarate [Symbicort 160-4.5 Mcg Inhaler] 2 inh INH BID 10/16/16 [History] Docusate Sodium [Colace] 100 mg PO DAILY 10/16/16 [History] Furosemide [Lasix] 40 mg PO DAILY 10/16/16 [History] Gabapentin [Neurontin] 300 mg PO TID 10/16/16 [History] Garlic 1 tab PO DAILY 10/16/16 [History] Multivitamin [Multi-Vitamin Daily] 1 tab PO DAILY 10/16/16 [History] Polyethylene Glycol 3350 [MiraLAX] 17 gm PO ASDIRECTED PRN 10/16/16 [History] Spironolactone [Aldactone] 12.5 mg PO DAILY 10/16/16 [History] Tiotropium [Spiriva HandiHaler] 1 inh INH DAILY 10/16/16 [History] Allopurinol [Zyloprim] 300 mg PO DAILY 06/12/19 [History] DULoxetine [Cymbalta] 60 mg PO DAILY 06/12/19 [History] Losartan [Cozaar] 25 mg PO DAILY 06/12/19 [History] oxyCODONE HCl/Acetaminophen [Endocet 5-325 Tablet] 1 tab PO Q6H PRN 06/12/19 [History] traZODone HCl [Trazodone HCl] 50 mg PO DAILY 06/12/19 [History] Warfarin [Coumadin] 3 mg PO .MON,WED,TH04/29/20 [History] Warfarin [Coumadin] 6 mg PO .SUN,,THU,SAT 04/29/20 [History] Levothyroxine [Synthroid] 88 mcg PO ACBREAKFAST 05/18/20 [History] fentaNYL [Duragesic] 50 patch TOP Q72H 05/18/20 [History] Past Medical History Cardiovascular History: Reports: Afib, Blood Clots/VTE/DVT, Heart Failure, Hypertension Respiratory History: Reports: COPD, PE, Sleep Apnea Gastrointestinal History: Reports: Chronic Constipation Genitourinary History: Reports: Other (See Below) Other Genitourinary History: Stage III CKD with microalbumiuria Musculoskeletal History: Reports: Arthritis, Back Pain, Chronic, Gout Neurological History: Reports: Head Trauma Psychiatric History: Reports: Addiction Endocrine/Metabolic History: Reports: Hypothyroidism Hematologic History: Reports: Anemia, Other (See Below) Other Hematologic History: anemia of chronic disease Oncologic (Cancer) History: Reports: None Dermatologic History: Reports: Cellulitis - Infectious Disease History Infectious Disease History: Reports: Chicken Pox, Shingles - Past Surgical History Head Surgeries/Procedures: Reports: None HEENT Surgical History: Reports: Cataract Surgery, Tonsillectomy GI Surgical History: Reports: Appendectomy Musculoskeletal Surgical History: Reports: Knee Replacement Other Musculoskeletal Surgeries/Procedures:: rt knee replacement, rt hip replacement, rt shoulder replacement, lt shoulder repair Social & Family History - Family History Family Medical History: No Pertinent Family History - Tobacco Use Tobacco Use Status *Q: Former Tobacco User Used Tobacco, but Quit: Yes Month/Year Tobacco Last Used: 2014 - Caffeine Use Caffeine Use: Reports: Coffee, Soda - Alcohol Use Days Per Week of Alcohol Use: 7 Number of Drinks Per Day: 3 Total Drinks Per Week: 21 Date of Last Drink: 05/17/20 - Recreational Drug Use Recreational Drug Use: Yes Drug Use in Last 12 Months: Yes Recreational Drug Type: Reports: Marijuana/Hashish Recreational Drug Use Frequency: Rarely H&P Review of Systems - Review of Systems: Review Of Systems: See Below General: Denies: Fever, Chills, Malaise Pulmonary: Denies: Shortness of Breath Cardiovascular: Denies: Chest Pain, Edema Gastrointestinal: Denies: Abdominal Pain Musculoskeletal: Reports: Back Pain (chronic) Skin: Reports: Other (right lower extremity hematoma with dark, clotted blood drainage) Psychiatric: Denies: Confusion Exam - Exam Exam: See Below - Vital Signs Vital Signs: Last Vital Signs Temp 97.1 F 05/18/20 18:26 Pulse 79 05/18/20 18:26 Resp 16 05/18/20 18:26 BP 104/57 L 05/18/20 18: Pulse Ox 98 05/18/20 18:26 Weight: 235 lb 12.8 oz - Exam Quality Assessment: No: Supplemental Oxygen General: Alert, Oriented Neck: Supple Lungs: Clear to Auscultation, Normal Respiratory Effort Cardiovascular: Regular Rate, Regular Rhythm GI/Abdominal Exam: Normal Bowel Sounds, Soft, Other (obese). No: Distended Extremities: Pedal Edema (right lower extremity trace), Other (bilateral lower extremity with chronic venous dialysis skin changes, right lower extremity with bandage) Skin: Warm, Dry Neuro Extensive - Mental Status: Alert, Oriented x3 Psychiatric: Alert, Normal Affect, Normal Mood - Patient Data Lab Results Last 24 hrs: Laboratory Results - last 24 hr 05/18/20 05/18/20 05/18/20 Range/Units 18:34 18:34 18:34 WBC 8.5 (5.0-10.0) 10^3/uL RBC 4.28 L (4.6-6.2) 10^6/uL Hgb 14.0 (14.0-18.0) g/dL Hct 43.5 (40.0-54.0) % MCV 101.6 H (80-100) fL MCH 32.7 (27.0-34.0) pg MCHC 32.2 L (33.0-35.0) g/dL Plt Count 252 (150-450) 10^3/uL Neut % (Auto) 57.7 (42.2-75.2) % Lymph % (Auto) 22.4 (20.5-50.1) % [place] % (Auto) 17.3 H (2-8) % Eos % (Auto) 2.2 (1.0-3.0) % Baso % (Auto) 0.4 (0.0-1.0) % PT 21.5 H (9.0-12.0) SEC INR 2.3 H (0.9-1.2) APTT 39.6 H (22.0-34.0) SEC Sodium 141 (136-145) mmol/L Potassium 4.5 (3.5-5.1) mmol/L Chloride 103 (98-107) mmol/L Carbon Dioxide 35 H (21-32) mmol/L Anion Gap 7.5 (7-13) mEq/L BUN 26 H (7-18) mg/dL Creatinine 1.18 (0.70-1.30) mg/dL Est Cr Clr Drug Dosing 65.64 mL/min Estimated GFR (MDRD) > 60 BUN/Creatinine Ratio 22.0 (No establ ref range) Glucose 104 H (74-99) mg/dL Lactic Acid (0.4-2.0) mmol/L Calcium 8.9 (8.5-10.1) mg/dL Total Bilirubin 1.0 (0.2-1.0) mg/dL AST 22 (15-37) U/L ALT 22 (16-63) U/L Alkaline Phosphatase 128 H (46-116) U/L Lactate Dehydrogenase 290 H (85-227) U/L C-Reactive Protein 5.0 H (0.0-0.9) mg/dL Total Protein 6.6 (6.4-8.2) g/dL Albumin 3.2 L (3.4-5.0) g/dL Globulin 3.4 Albumin/Globulin Ratio 0.94 /15 Range/Units 18:34 WBC (5.0-10.0) 10^3/uL RBC (4.6-6.2) 10^6/uL Hgb (14.0-18.0) g/dL Hct (40.0-54.0) % MCV (80-100) fL MCH (27.0-34.0) pg MCHC (33.0-35.0) g/dL Plt Count (150-450) 10^3/uL Neut % (Auto) (42.2-75.2) % Lymph % (Auto) (20.5-50.1) % Marathon % (Auto) (2-8) % Eos % (Auto) (1.0-3.0) % Baso % (Auto) (0.0-1.0) % PT (9.0-12.0) SEC INR (0.9-1.2) APTT (22.0-34.0) SEC Sodium (136-145) mmol/L Potassium (3.5-5.1) mmol/L Chloride (98-107) mmol/L Carbon Dioxide (21-32) mmol/L Anion Gap (7-13) mEq/L BUN (7-18) mg/dL Creatinine (0.70-1.30) mg/dL Est Cr Clr Drug Dosing mL/min Estimated GFR (MDRD) BUN/Creatinine Ratio (No establ ref range) Glucose (74-99) mg/dL Lactic Acid 1.8 (0.4-2.0) mmol/L Calcium (8.5-10.1) mg/dL Total Bilirubin (0.2-1.0) mg/dL AST (15-37) U/L ALT (16-63) U/L Alkaline Phosphatase (46-116) U/L Lactate Dehydrogenase (85-227) U/L C-Reactive Protein (0.0-0.9) mg/dL Total Protein (6.4-8.2) g/dL Albumin (3.4-5.0) g/dL Globulin Albumin/Globulin Ratio Result Diagrams: 05/18/20 18:34 05/18/20 18:34 - Problem List (1) COPD (chronic obstructive pulmonary disease) SNOMED Code(s): 02241288 ICD Code: J44.9 - CHRONIC OBSTRUCTIVE PULMONARY DISEASE, UNSPECIFIED Status: Acute Current Visit: Yes (2) CKD (chronic kidney disease) stage 3, GFR 30-59 ml/min SNOMED Code(s): 572171085 ICD Code: N18.30 - CHRONIC KIDNEY DISEASE, STAGE 3 UNSPECIFIED Status: Acute Current Visit: Yes (3) Hypertension SNOMED Code(s): 75547906 ICD Code: I10 - ESSENTIAL (PRIMARY) HYPERTENSION Status: Acute Current Visit: Yes (4) Back pain SNOMED Code(s): 056170359 ICD Code: M54.9 - DORSALGIA, UNSPECIFIED Status: Acute Current Visit: Yes (5) Cellulitis SNOMED Code(s): 386807412 ICD Code: L03.90 - CELLULITIS, UNSPECIFIED Status: Acute Current Visit: Yes Qualifiers: Site of cellulitis: extremity Site of cellulitis of extremity: lower extremity Laterality: right Qualified Code(s): L03.115 - Cellulitis of right lower limb (6) Chronic a-fib SNOMED Code(s): 987474655 ICD Code: I48.2 - CHRONIC ATRIAL FIBRILLATION * DO NOT USE * Status: Acute Current Visit: Yes (7) Chronic anticoagulation SNOMED Code(s): 154583109 ICD Code: Z79.01 - SNF (CURRENT) USE OF ANTICOAGULANTS Status: Acute Current Visit: Yes Problem List Initiated/Reviewed/Updated: Yes Orders Last 24hrs: Active Orders 24 hr Category Date Time Status Admission Diagnosis [ADT] Stat ADT 05/18/20 21:40 Ordered Admission Status [Patient Status] [ADT] Routine ADT 05/18/20 21:40 Active CPAP Adult [RT BiPAP/CPAP] [RC] ASDIRECTED Care 05/18/20 22:55 Ordered Oxygen Therapy [RC] PRN Care 05/18/20 23:07 Ordered Peripheral IV Care [RC] . DIRECTED Care 05/18/20 23:08 Ordered RT Aerosol Therapy [RC] ASDIRECTED Care 05/18/20 23:13 Ordered RT Post Treatment Assessment [RC] Click to Edit Care 05/18/20 23:12 Ordered RT Pre-Treatment Assessment [RC] Click to Edit Care 05/18/20 23:12 Ordered Up With Assistance [RC] ASDIRECTED Care 05/18/20 23:07 Ordered VTE/DVT Education [RC] PER UNIT ROUTINE Care 05/18/20 23:07 Ordered Vital Signs [RC] Q4H Care 05/18/20 23:07 Ordered Regular Diet [DIET] Diet 05/18/20 Breakfast Ordered BASIC METABOLIC PANEL,BMP [CHEM] AM Lab 05/19/20 05:15 Ordered CBC WITH AUTO DIFF [HEME] AM Lab 05/19/20 05:15 Ordered CULTURE BLOOD [BC] Stat Lab 05/18/20 19:33 Received CULTURE BLOOD [BC] Stat Lab 05/18/20 22:48 Ordered CULTURE WOUND [RM] Routine Lab 05/18/20 21:35 Received Acetaminophen [TylenoL] Med 05/18/20 23:07 Ordered 650 mg PO Q4H PRN Acetaminophen [TylenoL] Med 05/18/20 23:10 Ordered 650 mg PO Q4H PRN Acetaminophen/oxyCODONE [Percocet 325-5 MG] Med 05/18/20 23:10 Ordered 1 tab PO Q6H PRN Albuterol/Ipratropium [DuoNeb 3.0-0.5 MG/3 ML] Med 05/18/20 23:13 Ordered 3 ml NEB Q4HRRT PRN Budesonide [Pulmicort] Med 05/19/20 07:00 Ordered 0.5 mg NEB BIDRT DULoxetine [Cymbalta] Med 05/19/20 09:00 Ordered 60 mg PO DAILY Docusate Sodium [Colace] Med 05/19/20 09:00 Ordered 100 mg PO DAILY Furosemide [Lasix] Med 05/19/20 09:00 Ordered 40 mg PO DAILY Gabapentin [Neurontin] Med 05/19/20 09:00 Ordered 300 mg PO TID Heparin Sodium Med 05/19/20 06:00 Ordered 5,000 units SUBCUT Q8HR Levothyroxine [Synthroid] Med 05/19/20 06:00 Ordered 88 mcg PO ACBREAKFAST Losartan [Cozaar] Med 05/19/20 09:00 Ordered 25 mg PO DAILY Multivitamin [Multi-Vitamin Daily] Med 05/19/20 09:00 Ordered 1 tab PO DAILY Ondansetron [Zofran ODT] Med 05/18/20 23:07 Ordered 4 mg PO Q6H PRN Pharmacy to Dose - Vancomycin Med 05/18/20 23:15 Ordered 1 dose .XX ASDIRECTED Pharmacy to Dose - Warfarin Med 05/18/20 23:00 Ordered 1 dose .XX ASDIRECTED Piperacillin/Tazobactam [Zosyn] 3.375 gm Med 05/18/20 23:15 Ordered Sodium Chloride 0.9% [Normal Saline] 100 ml IV Q6H Sodium Chloride 0.9% [Saline Flush] Med 05/18/20 23:07 Ordered 10 ml FLUSH ASDIRECTED PRN Spironolactone [Aldactone] Med 05/19/20 09:00 Ordered 12.5 mg PO DAILY Tiotropium [Spiriva HandiHaler] Med 05/19/20 09:00 Ordered 1 inh INH DAILY Zolpidem [Ambien] Med 05/18/20 23:05 Ordered 5 mg PO BEDTIME PRN allopurinoL [Zyloprim] Med 05/19/20 09:00 Ordered 300 mg PO DAILY diphenhydrAMINE [Benadryl] Med 05/18/20 23:08 Ordered 25 mg PO BEDTIME PRN fentaNYL [Duragesic] Med 05/18/20 23:15 Ordered 50 patch TOP Q72H polyethylene glycoL 3350 [MiraLAX] Med 05/18/20 23:10 Ordered 17 gm PO ASDIRECTED PRN Blood Culture x2 Reflex Set [OM.PC] Stat Oth 05/18/20 22:48 Ordered Peripheral IV Insertion Adult [OM.PC] Routine Oth 05/18/20 23:07 Ordered Saline Lock Insert [OM.PC] Routine Oth 05/18/20 23:07 Ordered Resuscitation Status Routine Resus Stat 05/18/20 23:07 Ordered Medication Orders Acetaminophen (Tylenol) 650 mg PO Q4H PRN PRN Reason: Pain (Mild 1-3)/fever Acetaminophen (Tylenol) 650 mg PO Q4H PRN PRN Reason: mild pain Albuterol/Ipratropium (Duoneb 3.0-0.5 Mg/3 Ml) 3 ml NEB Q4HRRT PRN PRN Reason: sob Allopurinol (Zyloprim) 300 mg PO DAILY [facility] Budesonide (Pulmicort) 0.5 mg NEB BIDRT [facility] Diphenhydramine HCl (Benadryl) 25 mg PO BEDTIME PRN PRN Reason: Sleep Docusate Sodium (Colace) 100 mg PO DAILY [facility] Fentanyl (Duragesic) mcg TOP Q72H [facility] Furosemide (Lasix) 40 mg PO DAILY [facility] Gabapentin (Neurontin) 300 mg PO TID [facility] Heparin Sodium (Porcine) (Heparin Sodium) 5,000 units SUBCUT Q8HR [facility] Piperacillin Sod/Tazobactam (Sod 3.375 gm/ Sodium Chloride) 100 mls @ 200 mls/hr IV Q6H [facility] Levothyroxine Sodium (Synthroid) 88 mcg PO ACBREAKFAST [facility] Losartan Potassium (Cozaar) 25 mg PO DAILY [facility] Non-Formulary Medication (Duloxetine [Cymbalta]) 60 mg PO DAILY [facility] Non-Formulary Medication (Multivitamin [Multi-Vitamin Daily]) 1 tab PO DAILY [facility] Ondansetron HCl (Zofran Odt) 4 mg PO Q6H PRN PRN Reason: nausea, able to take PO Oxycodone/Acetaminophen (Percocet 325-5 Mg) 1 tab PO Q6H PRN PRN Reason: moderate pain Polyethylene Glycol (Miralax) 17 gm PO ASDIRECTED PRN PRN Reason: Constipation Sodium Chloride (Saline Flush) 10 ml FLUSH ASDIRECTED PRN PRN Reason: Keep Vein Open Spironolactone (Aldactone) 12.5 mg PO DAILY [facility] Tiotropium Bennett (Spiriva Handihaler) mcg INH DAILY [facility] Vancomycin HCl (Pharmacy To Dose - Vancomycin) 1 dose .XX ASDIRECTED [facility] Warfarin Sodium (Pharmacy To Dose - Warfarin) 1 dose .XX ASDIRECTED [facility] Zolpidem Tartrate (Ambien) 5 mg PO BEDTIME PRN PRN Reason: for sleep Assessment/Plan Comment:: 75-year-old with a history of atrial fibrillation, COPD, obstructive sleep apnea with CPAP at night, chronic anticoagulation for A. fib and history of pulmonary embolism and DVT Has a history of prior right knee replacement The patient injured the right lower extremity following a fall on 25 April. Developed an area of hematoma and later drainage. He didnt note significant redness around it, was not on outpatient antibiotics. Has been followed by primary care physician. When it was draining it was old blood clots coming, he noted no significant pus. Right lower extremity hematoma, on CT measuring 9.8 x 1.4 cm Possible abscess and cellulitis This is likely based on the injury and hematoma Has been using Xeroform dressing as outpatient Status post I&D on [address] Greene We will do wound packing and wet-to-dry dressing Obtain blood cultures Obtain wound culture Empirical treatment with vancomycin and Zosyn Chronic kidney disease stage III Baseline creatinine 1.3, GFR 54 Continue Lasix, spironolactone, Hypertension Continue losartan Chronic pain Treat with home doses of Neurontin, fentanyl patch Oxycodone as needed Anticoagulationher atrial fibrillation and history of DVT Continue warfarin COPD no acute exacerbation Continue Spiriva Use DuoNeb as needed Hypothyroidism Treat with Synthroid obstructive sleep apnea use CPAP
[2020-05-18] MEDS: Piperacillin/Tazobactam 3.375 GM in Sodium Chloride 0.9% 100 ML IV SCH (23:47)
[2020-05-19] MEDS: Zolpidem 5 MG Tab PO PRN ×2 (00:13→20:52)
[2020-05-19] MEDS: diphenhydrAMINE 25 MG Tab PO PRN ×2 (00:13→20:53)
[2020-05-19] MEDS: Acetaminophen/oxyCODONE 325-5 MG Tab PO PRN ×4 (00:13→20:53)
[2020-05-19] MEDS ORDERED: Heparin Sodium 5,000 Units/ML Vial SUBCUT SCH (06:00)
[2020-05-19] MEDS: Levothyroxine 88 MCG Tab PO SCH (06:14)
[2020-05-19] MEDS: Piperacillin/Tazobactam 3.375 GM in Sodium Chloride 0.9% 100 ML IV SCH ×2 (06:18→12:54)
[2020-05-19 07:31] LABS: ANION GAP 12.4 mEq/L (7-13); CHLORIDE,CL 102 mmol/L (98-107); SODIUM,NA 140 mmol/L (136-145)
[2020-05-19] MEDS: Budesonide 0.5 MG/2 ML Neb Susp NEB SCH ×2 (07:46→18:24)
[2020-05-19] MEDS: DULoxetine 30 MG Cap PO SCH (08:49)
[2020-05-19] MEDS: Multivitamins,Therapeutic Tab PO SCH (08:49)
[2020-05-19] MEDS: Gabapentin 300 MG Cap PO SCH ×3 (08:50→20:52)
[2020-05-19] MEDS: Allopurinol 100 MG Tab PO SCH (08:50)
[2020-05-19] MEDS: Docusate Sodium 100 MG Cap PO SCH (08:50)
[2020-05-19] MEDS: Furosemide 80 MG Tab PO SCH (08:50)
[2020-05-19] MEDS: Losartan 25 MG Tab PO SCH (08:52)
[2020-05-19] MEDS: Spironolactone 25 MG Tab PO SCH (08:53)
[2020-05-19] MEDS: Tiotropium Inhaler 18 MCG Inhalation Powder Cap Kit of 5 INH SCH (08:53)
--- NOTE | 2020-05-19 12:32 | PCM.PN ---
- General Info Date of Service: 05/19/20 Admission Dx/Problem (Free Text): Admission Diagnosis/Problem Admission Diagnosis/Problem Cellulitis Subjective Update: slept fairly well There was mild bloody drainage from the right lower extremity wound, pain is well controlled No associated fever or chills No chest pain. No shortness of breath. Functional Status: Reports: Pain Controlled, Tolerating Diet - Review of Systems General: Denies: Fever, Weakness Pulmonary: Denies: Shortness of Breath Cardiovascular: Denies: Chest Pain Gastrointestinal: Denies: Abdominal Pain Neurological: Denies: Confusion - Patient Data Vitals - Most Recent: Last Vital Signs Temp 98.2 F 05/19/20 03:03 Pulse 60 05/19/20 07:49 Resp 20 05/19/20 03:03 BP 128/71 05/19/20 08:52 Pulse Ox 90 L 05/19/20 07:49 Weight - Most Recent: 235 lb 12.8 oz I&O - Last 24 Hours: Intake & Output 05/18/20 05/19/20 05/19/20 22:59 06:59 14:59 Intake Total 510 Balance 510 Lab Results Last 24 Hours: Laboratory Results - last 24 hr 05/18/20 05/18/20 05/18/20 Range/Units 18:34 18:34 18:34 WBC 8.5 (5.0-10.0) 10^3/uL RBC 4.28 L (4.6-6.2) 10^6/uL Hgb 14.0 (14.0-18.0) g/dL Hct 43.5 (40.0-54.0) % MCV 101.6 H (80-100) fL MCH 32.7 (27.0-34.0) pg MCHC 32.2 L (33.0-35.0) g/dL Plt Count 252 (150-450) 10^3/uL Neut % (Auto) 57.7 (42.2-75.2) % Lymph % (Auto) 22.4 (20.5-50.1) % [place] % (Auto) 17.3 H (2-8) % Eos % (Auto) 2.2 (1.0-3.0) % Baso % (Auto) 0.4 (0.0-1.0) % PT 21.5 H (9.0-12.0) SEC INR 2.3 H (0.9-1.2) APTT 39.6 H (22.0-34.0) SEC Sodium 141 (136-145) mmol/L Potassium 4.5 (3.5-5.1) mmol/L Chloride 103 (98-107) mmol/L Carbon Dioxide 35 H (21-32) mmol/L Anion Gap 7.5 (7-13) mEq/L BUN 26 H (7-18) mg/dL Creatinine 1.18 (0.70-1.30) mg/dL Est Cr Clr Drug Dosing 65.64 mL/min Estimated GFR (MDRD) > 60 BUN/Creatinine Ratio 22.0 (No establ ref range) Glucose 104 H (74-99) mg/dL Lactic Acid (0.4-2.0) mmol/L Calcium 8.9 (8.5-10.1) mg/dL Total Bilirubin 1.0 (0.2-1.0) mg/dL AST 22 (15-37) U/L ALT 22 (16-63) U/L Alkaline Phosphatase 128 H (46-116) U/L Lactate Dehydrogenase 290 H (85-227) U/L C-Reactive Protein 5.0 H (0.0-0.9) mg/dL Total Protein 6.6 (6.4-8.2) g/dL Albumin 3.2 L (3.4-5.0) g/dL Globulin 3.4 Albumin/Globulin Ratio 0.94 05/18/20 05/19/20 05/19/20 Range/Units 18:34 06:07 06:27 WBC 8.1 (5.0-10.0) 10^3/uL RBC 4.21 L (4.6-6.2) 10^6/uL Hgb 13.6 L (14.0-18.0) g/dL Hct 42.5 (40.0-54.0) % MCV 101.0 H (80-100) fL MCH 32.3 (27.0-34.0) pg MCHC 32.0 L (33.0-35.0) g/dL Plt Count 246 (150-450) 10^3/uL Neut % (Auto) 56.3 (42.2-75.2) % Lymph % (Auto) 21.7 (20.5-50.1) % [place] % (Auto) 18.4 H (2-8) % Eos % (Auto) 3.1 H (1.0-3.0) % Baso % (Auto) 0.5 (0.0-1.0) % PT 20.7 H (9.0-12.0) SEC INR 2.2 H (0.9-1.2) APTT (22.0-34.0) SEC Sodium (136-145) mmol/L Potassium (3.5-5.1) mmol/L Chloride (98-107) mmol/L Carbon Dioxide (21-32) mmol/L Anion Gap (7-13) mEq/L BUN (7-18) mg/dL Creatinine (0.70-1.30) mg/dL Est Cr Clr Drug Dosing mL/min Estimated GFR (MDRD) BUN/Creatinine Ratio (No establ ref range) Glucose (74-99) mg/dL Lactic Acid 1.8 (0.4-2.0) mmol/L Calcium (8.5-10.1) mg/dL Total Bilirubin (0.2-1.0) mg/dL AST (15-37) U/L ALT (16-63) U/L Alkaline Phosphatase (46-116) U/L Lactate Dehydrogenase (85-227) U/L C-Reactive Protein (0.0-0.9) mg/dL Total Protein (6.4-8.2) g/dL Albumin (3.4-5.0) g/dL Globulin Albumin/Globulin Ratio 05/19/20 Range/Units 06:27 WBC (5.0-10.0) 10^3/uL RBC (4.6-6.2) 10^6/uL Hgb (14.0-18.0) g/dL Hct (40.0-54.0) % MCV (80-100) fL MCH (27.0-34.0) pg MCHC (33.0-35.0) g/dL Plt Count (150-450) 10^3/uL Neut % (Auto) (42.2-75.2) % Lymph % (Auto) (20.5-50.1) % [place] % (Auto) (2-8) % Eos % (Auto) (1.0-3.0) % Baso % (Auto) (0.0-1.0) % PT (9.0-12.0) SEC INR (0.9-1.2) APTT (22.0-34.0) SEC Sodium 140 (136-145) mmol/L Potassium 4.4 (3.5-5.1) mmol/L Chloride 102 (98-107) mmol/L Carbon Dioxide 30 (21-32) mmol/L Anion Gap 12.4 (7-13) mEq/L BUN 19 H (7-18) mg/dL Creatinine 1.10 (0.70-1.30) mg/dL Est Cr Clr Drug Dosing 70.42 mL/min Estimated GFR (MDRD) > 60 BUN/Creatinine Ratio (No establ ref range) Glucose 90 (74-99) mg/dL Lactic Acid (0.4-2.0) mmol/L Calcium 8.6 (8.5-10.1) mg/dL Total Bilirubin (0.2-1.0) mg/dL AST (15-37) U/L ALT (16-63) U/L Alkaline Phosphatase (46-116) U/L Lactate Dehydrogenase (85-227) U/L C-Reactive Protein (0.0-0.9) mg/dL Total Protein (6.4-8.2) g/dL Albumin (3.4-5.0) g/dL Globulin Albumin/Globulin Ratio Med Orders - Current: Current Medications Acetaminophen (Tylenol) 650 mg PO Q4H PRN PRN Reason: Pain (Mild 1-3)/fever Acetaminophen (Tylenol) 650 mg PO Q4H PRN PRN Reason: mild pain Albuterol/Ipratropium (Duoneb 3.0-0.5 Mg/3 Ml) 3 ml NEB Q4HRRT PRN PRN Reason: sob Allopurinol (Zyloprim) 300 mg PO DAILY [facility] Last Admin: 05/19/20 08:50 Dose: 300 mg Documented by: Budesonide (Pulmicort) 0.5 mg NEB BIDRT [facility] Last Admin: 05/19/20 07:46 Dose: 0.5 mg Documented by: Diphenhydramine HCl (Benadryl) 25 mg PO BEDTIME PRN PRN Reason: Sleep Last Admin: 05/19/20 00:13 Dose: 25 mg Documented by: Docusate Sodium (Colace) 100 mg PO DAILY [facility] Last Admin: 05/19/20 08:50 Dose: 100 mg Documented by: Duloxetine HCl (Cymbalta) 60 mg PO DAILY [facility] Last Admin: 05/19/20 08:49 Dose: 60 mg Documented by: Fentanyl (Duragesic) 50 mcg TOP Q72H [facility] Furosemide (Lasix) 40 mg PO DAILY [facility] Last Admin: 05/19/20 08:50 Dose: 40 mg Documented by: Gabapentin (Neurontin) 300 mg PO TID [facility] Last Admin: 05/19/20 08:50 Dose: 300 mg Documented by: Levothyroxine Sodium (Synthroid) 88 mcg PO ACBREAKFAST [facility] Last Admin: 05/19/20 06:14 Dose: 88 mcg Documented by: Losartan Potassium (Cozaar) 25 mg PO DAILY [facility] Last Admin: 05/19/20 08:52 Dose: 25 mg Documented by: Multivitamins (Thera) 1 each PO DAILY [facility] Last Admin: 05/19/20 08:49 Dose: 1 each Documented by: Ondansetron HCl (Zofran Odt) 4 mg PO Q6H PRN PRN Reason: nausea, able to take PO Oxycodone/Acetaminophen (Percocet 325-5 Mg) 1 tab PO Q6H PRN PRN Reason: moderate pain Last Admin: 05/19/20 06:14 Dose: 1 tab Documented by: Polyethylene Glycol (Miralax) 17 gm PO ASDIRECTED PRN PRN Reason: Constipation Sodium Chloride (Saline Flush) 10 ml FLUSH ASDIRECTED PRN PRN Reason: Keep Vein Open Spironolactone (Aldactone) 12.5 mg PO DAILY [facility] Last Admin: 05/19/20 08:53 Dose: 12.5 mg Documented by: Tiotropium [place] (Spiriva Handihaler) 18 mcg INH DAILY [facility] Last Admin: 05/19/20 08:53 Dose: 18 mcg Documented by: Warfarin Sodium (Pharmacy To Dose - Warfarin) 1 dose .XX ASDIRECTED [facility] Warfarin Sodium (Coumadin) 6 mg PO ONETIME ONE Stop: 05/19/20 14:01 Zolpidem Tartrate (Ambien) 5 mg PO BEDTIME PRN PRN Reason: for sleep Last Admin: 05/19/20 00:13 Dose: 5 mg Documented by: Discontinued Medications Heparin Sodium (Porcine) (Heparin Sodium) 5,000 units SUBCUT Q8HR [facility] Piperacillin Sod/Tazobactam (Sod 3.375 gm/ Sodium Chloride) 100 mls @ 200 mls/hr IV Q6H [facility] Last Admin: 05/19/20 06:18 Dose: 200 mls/hr Documented by: Vancomycin HCl (Vancomycin 1.5 Gm/300 Ml Premix) 300 mls @ 200 mls/hr IV Q12H [facility] Last Admin: 05/19/20 00:14 Dose: 200 mls/hr Documented by: Iopamidol (Isovue-300 (61%)) 100 ml IVPUSH ONETIME ONE Stop: 05/18/20 19:24 Last Admin: 05/18/20 19:52 Dose: 100 ml Documented by: Vancomycin HCl (Pharmacy To Dose - Vancomycin) 1 dose .XX ASDIRECTED [facility] - Exam General: Alert, Oriented Neck: Supple Lungs: Clear to Auscultation, Normal Respiratory Effort Cardiovascular: Regular Rate, Regular Rhythm GI/Abdominal Exam: Normal Bowel Sounds, Soft, Non-Tender Extremities: Leg Pain (tolerable), Other (right lower extremity surgical wound) Skin: Warm, Dry, Other (right lower extremity surgical wound with minimal bloody drainage, wound bed appears clear, large tunneling from surgical incision in multiple direction,) Wound/Incisions: Erythema (dry skin and chronic appearing deep red/brown discoloration with 1+ edema) Psy/Mental Status: Alert, Normal Affect, Normal Mood Sepsis Event Note - Evaluation Sepsis Screening Result: No Definite Risk - Focused Exam Vital Signs: Vital Signs Temp Pulse Resp BP BP Pulse Ox Pulse Ox 05/19/20 08:52 128/71 05/19/20 07:49 60 90 L 05/19/20 03:03 98.2 F 100 20 114/70 92 L - Problem List & Annotations (1) COPD (chronic obstructive pulmonary disease) SNOMED Code(s): 64266802 Code(s): J44.9 - CHRONIC OBSTRUCTIVE PULMONARY DISEASE, UNSPECIFIED Status: Acute Current Visit: Yes (2) CKD (chronic kidney disease) stage 3, GFR 30-59 ml/min SNOMED Code(s): 896948122 Code(s): N18.30 - CHRONIC KIDNEY DISEASE, STAGE 3 UNSPECIFIED Status: Acute Current Visit: Yes (3) Hypertension SNOMED Code(s): 15290648 Code(s): I10 - ESSENTIAL (PRIMARY) HYPERTENSION Status: Acute Current Visit: Yes (4) Back pain SNOMED Code(s): 250333745 Code(s): M54.9 - DORSALGIA, UNSPECIFIED Status: Acute Current Visit: Yes (5) Cellulitis SNOMED Code(s): 704995920 Code(s): L03.90 - CELLULITIS, UNSPECIFIED Status: Acute Current Visit: Yes Qualifiers: Site of cellulitis: extremity Site of cellulitis of extremity: lower extremity Laterality: right Qualified Code(s): L03.115 - Cellulitis of right lower limb (6) Chronic a-fib SNOMED Code(s): 511125319 Code(s): I48.2 - CHRONIC ATRIAL FIBRILLATION * DO NOT USE * Status: Acute Current Visit: Yes (7) Chronic anticoagulation SNOMED Code(s): 827169958 Code(s): Z79.01 - SNF (CURRENT) USE OF ANTICOAGULANTS Status: Acute Current Visit: Yes - Problem List Review Problem List Initiated/Reviewed/Updated: Yes - My Orders Last 24 Hours: My Active Orders 05/18/20 22:48 Blood Culture x2 Reflex Set [OM.PC] Stat 05/18/20 22:55 CPAP Adult [RT BiPAP/CPAP] [RC] ASDIRECTED 05/18/20 23:00 Pharmacy to Dose - Warfarin 1 dose .XX ASDIRECTED 05/18/20 23:05 Zolpidem [Ambien] 5 mg PO BEDTIME PRN 05/18/20 23:07 Oxygen Therapy [RC] PRN Up With Assistance [RC] ASDIRECTED VTE/DVT Education [RC] PER UNIT ROUTINE Vital Signs [RC] Q4H Acetaminophen [TylenoL] 650 mg PO Q4H PRN Ondansetron [Zofran ODT] 4 mg PO Q6H PRN Sodium Chloride 0.9% [Saline Flush] 10 ml FLUSH ASDIRECTED PRN Peripheral IV Insertion Adult [OM.PC] Routine Saline Lock Insert [OM.PC] Routine Resuscitation Status Routine 05/18/20 23:08 Peripheral IV Care [RC] 08,20 diphenhydrAMINE [Benadryl] 25 mg PO BEDTIME PRN 05/18/20 23:10 Acetaminophen [TylenoL] 650 mg PO Q4H PRN Acetaminophen/oxyCODONE [Percocet 325-5 MG] 1 tab PO Q6H PRN polyethylene glycoL 3350 [MiraLAX] 17 gm PO ASDIRECTED PRN 05/18/20 23:12 RT Post Treatment Assessment [RC] Click to Edit RT Pre-Treatment Assessment [RC] Click to Edit 05/18/20 23:13 RT Aerosol Therapy [RC] ASDIRECTED Albuterol/Ipratropium [DuoNeb 3.0-0.5 MG/3 ML] 3 ml NEB Q4HRRT PRN 05/18/20 23:18 CULTURE BLOOD [BC] Stat 05/19/20 06:00 Levothyroxine [Synthroid] 88 mcg PO ACBREAKFAST 05/19/20 07:00 Budesonide [Pulmicort] 0.5 mg NEB BIDRT 05/19/20 09:00 DULoxetine [Cymbalta] 60 mg PO DAILY Docusate Sodium [Colace] 100 mg PO DAILY Furosemide [Lasix] 40 mg PO DAILY Gabapentin [Neurontin] 300 mg PO TID Losartan [Cozaar] 25 mg PO DAILY Multivitamins,Therapeutic [Thera] 1 each PO DAILY Spironolactone [Aldactone] 12.5 mg PO DAILY Tiotropium [Spiriva HandiHaler] 18 mcg INH DAILY allopurinoL [Zyloprim] 300 mg PO DAILY 05/19/20 11:41 Wound Care [RC] DAILY 05/19/20 14:00 Warfarin [Coumadin] 6 mg PO ONETIME ONE 05/20/20 09:00 fentaNYL [Duragesic] 50 mcg TOP Q72H - Plan Plan:: 75-year-old with a history of atrial fibrillation, COPD, obstructive sleep apnea with CPAP at night, chronic anticoagulation for A. fib and history of pulmonary embolism and DVT Has a history of prior right knee replacement The patient injured the right lower extremity following a fall on 25 April. Developed an area of hematoma and later drainage. He didnt note significant redness around it, was not on outpatient antibiotics. Has been followed by primary care physician. When it was draining it was old blood clots coming, he noted no significant pus. Right lower extremity hematoma, on CT measuring 9.8 x 1.4 cm less likely abscess and cellulitis This is likely secondary to hematoma the patient underwent surgical evacuation on 18 May The wound bed appears clean, not infected We'll use wound packing, Xeroform dressing Will need follow-up with wound clinic to reevaluate wound care, possibly even c onsider wound VAC blood cultures pending wound culture pending Empirical treatment started with vancomycin and Zosyn but I do not think the patient has significant infection We'll de-escalate antibiotics to cefazolin Chronic kidney disease stage III Baseline creatinine 1.3, GFR 54 Continue Lasix, spironolactone, Hypertension Continue losartan Chronic pain Treat with home doses of Neurontin, fentanyl patch Oxycodone as needed Anticoagulation for atrial fibrillation and history of DVT Continue warfarin COPD no acute exacerbation Continue Spiriva Use DuoNeb as needed Hypothyroidism Treat with Synthroid obstructive sleep apnea use CPAP
[2020-05-19] MEDS: Levofloxacin 500 MG Tab PO SCH (13:32)
[2020-05-19] MEDS ORDERED: Warfarin 2 MG Tab PO ONE (14:00)
[2020-05-20] MEDS: Acetaminophen/oxyCODONE 325-5 MG Tab PO PRN ×2 (02:42→09:06)
[2020-05-20] MEDS: Levothyroxine 88 MCG Tab PO SCH (05:52)
[2020-05-20] MEDS: Budesonide 0.5 MG/2 ML Neb Susp NEB SCH (07:48)
[2020-05-20 07:51] VITALS: BP 136/69
[2020-05-20 07:52] VITALS: PULSE 72
[2020-05-20] MEDS ORDERED: fentaNYL 50 MCG/HR Transdermal Patch TOP SCH (09:00)
[2020-05-20] MEDS: Docusate Sodium 100 MG Cap PO SCH (09:05)
[2020-05-20] MEDS: Gabapentin 300 MG Cap PO SCH ×3 (09:06→13:45)
[2020-05-20] MEDS: DULoxetine 30 MG Cap PO SCH (09:06)
[2020-05-20] MEDS: Furosemide 80 MG Tab PO SCH (09:07)
[2020-05-20] MEDS: Multivitamins,Therapeutic Tab PO SCH (09:08)
[2020-05-20] MEDS: Spironolactone 25 MG Tab PO SCH (09:08)
[2020-05-20] MEDS: Losartan 25 MG Tab PO SCH (09:09)
[2020-05-20] MEDS: Allopurinol 100 MG Tab PO SCH (09:09)
[2020-05-20] MEDS: Tiotropium Inhaler 18 MCG Inhalation Powder Cap Kit of 5 INH SCH (09:11)
--- NOTE | 2020-05-20 10:19 | PCM.DCSUM1 ---
Discharge Summary - Hospital Course Free Text/Narrative:: 75-year-old with a history of atrial fibrillation, COPD, obstructive sleep apnea with CPAP at night, chronic anticoagulation for A. fib and history of pulmonary embolism and DVT Has a history of prior right knee replacement The patient injured the right lower extremity following a fall on 25 April. Developed an area of hematoma and later drainage. He didnt note significant redness around it, was not on outpatient antibiotics. Has been followed by primary care physician. When it was draining it was old blood clots coming, he noted no significant pus. Right lower extremity hematoma, on CT measuring 9.8 x 1.4 cm less likely abscess and cellulitis but there is evidence of infection with culture growing staph and gram neg rods - further ID and sens pending This is likely secondary to hematoma the patient underwent surgical evacuation on 18 May The wound bed appears clean, not infected We'll use wound packing, Xeroform dressing will come back for daily dressing changes Will need follow-up with wound clinic to reevaluate wound care, possibly even consider wound VAC treat with levofloxacin blood cultures pending Chronic kidney disease stage III Baseline creatinine 1.3, GFR 54 Continue Lasix, spironolactone, Hypertension Continue losartan Chronic pain Treat with home doses of Neurontin, fentanyl patch Oxycodone as needed Anticoagulation for atrial fibrillation and history of DVT Continue warfarin COPD no acute exacerbation Continue Spiriva Use DuoNeb as needed Hypothyroidism Treat with Synthroid obstructive sleep apnea use CPAP Diagnosis: Stroke: No - Discharge Data Discharge Date: 05/20/20 Discharge Disposition: Home, Self-Care 01 Condition: Stable - Referral to Home Health Primary Care Physician: PCP None - Discharge Diagnosis/Problem(s) (1) COPD (chronic obstructive pulmonary disease) SNOMED Code(s): 63542715 ICD Code: J44.9 - CHRONIC OBSTRUCTIVE PULMONARY DISEASE, UNSPECIFIED Status: Acute Current Visit: Yes (2) CKD (chronic kidney disease) stage 3, GFR 30-59 ml/min SNOMED Code(s): 196854704 ICD Code: N18.30 - CHRONIC KIDNEY DISEASE, STAGE 3 UNSPECIFIED Status: Acute Current Visit: Yes (3) Hypertension SNOMED Code(s): 22938782 ICD Code: I10 - ESSENTIAL (PRIMARY) HYPERTENSION Status: Acute Current Visit: Yes (4) Back pain SNOMED Code(s): 848704435 ICD Code: M54.9 - DORSALGIA, UNSPECIFIED Status: Acute Current Visit: Yes (5) Cellulitis SNOMED Code(s): 622550941 ICD Code: L03.90 - CELLULITIS, UNSPECIFIED Status: Acute Current Visit: Yes Qualifiers: Site of cellulitis: extremity Site of cellulitis of extremity: lower e xtremity Laterality: right Qualified Code(s): L03.115 - Cellulitis of right lower limb (6) Chronic a-fib SNOMED Code(s): 789863518 ICD Code: I48.2 - CHRONIC ATRIAL FIBRILLATION * DO NOT USE * Status: Acute Current Visit: Yes (7) Chronic anticoagulation SNOMED Code(s): 493562847 ICD Code: Z79.01 - [place]ENT[place] (CURRENT) USE OF ANTICOAGULANTS Status: Acute Current Visit: Yes (8) Hematoma SNOMED Code(s): 034419169 ICD Code: T14.8XXA - OTHER INJURY OF UNSPECIFIED BODY REGION, INITIAL ENCOUNTER Status: Acute Current Visit: Yes - Patient Instructions Diet: Heart Healthy Diet Activity: As Tolerated - Discharge Plan *PRESCRIPTION DRUG MONITORING PROGRAM REVIEWED*: No *COPY OF PRESCRIPTION DRUG MONITORING REPORT IN PATIENT GENE: No Prescriptions/Med Rec: levoFLOXacin [Levaquin] 500 mg PO Q24H #10 tablet Home Medications: Home Meds Acetaminophen [Tylenol] 2 tab PO Q4H PRN 10/16/16 [History] Albuterol Sulfate [Proventil Hfa] 2 inh INH Q4H PRN 10/16/16 [History] Budesonide/Formoterol Fumarate [Symbicort 160-4.5 Mcg Inhaler] 2 inh INH BID 10/16/16 [History] Docusate Sodium [Colace] 100 mg PO DAILY 10/16/16 [History] Furosemide [Lasix] 40 mg PO DAILY 10/16/16 [History] Gabapentin [Neurontin] 300 mg PO TID 10/16/16 [History] Garlic 1 tab PO DAILY 10/16/16 [History] Multivitamin [Multi-Vitamin Daily] 1 tab PO DAILY 10/16/16 [History] Polyethylene Glycol 3350 [MiraLAX] 17 gm PO ASDIRECTED PRN 10/16/16 [History] Spironolactone [Aldactone] 12.5 mg PO DAILY 10/16/16 [History] Tiotropium [Spiriva HandiHaler] 1 inh INH DAILY 10/16/16 [History] Allopurinol [Zyloprim] 300 mg PO DAILY 06/12/19 [History] DULoxetine [Cymbalta] 60 mg PO DAILY 06/12/19 [History] Losartan [Cozaar] 25 mg PO DAILY 06/12/19 [History] oxyCODONE HCl/Acetaminophen [Endocet 5-325 Tablet] 1 tab PO Q6H PRN 06/12/19 [ History] traZODone HCl [Trazodone HCl] 50 mg PO DAILY 06/12/19 [History] Warfarin [Coumadin] 3 mg PO .MON,WED,THURS 04/29/20 [History] Warfarin [Coumadin] 6 mg PO .SUN,TU,THU,SAT 04/29/20 [History] Levothyroxine [Synthroid] 88 mcg PO ACBREAKFAST 05/18/20 [History] fentaNYL [Duragesic] 50 patch TOP Q72H 05/18/20 [History] levoFLOXacin [Levaquin] 500 mg PO Q24H #10 tablet 05/20/20 [Rx] Referrals: PCP,None [Primary Care Provider] - (establish new PMD at [facility] in 2-3 days) - Discharge Summary/Plan Comment DC Time >30 min.: No - General Info Date of Service: 05/20/20 Functional Status: Reports: Pain Controlled, Tolerating Diet, Ambulating - Review of Systems General: Denies: Fever Pulmonary: Denies: Shortness of Breath Cardiovascular: Denies: Chest Pain Gastrointestinal: Denies: Abdominal Pain Genitourinary: Denies: Dysuria Neurological: Denies: Confusion - Patient Data Vitals - Most Recent: Last Vital Signs Temp 98.6 F 05/20/20 07:49 Pulse 72 05/20/20 07:51 Resp 16 05/20/20 07:49 BP 136/69 05/20/20 09:09 Pulse Ox 92 L 05/20/20 07:51 Weight - Most Recent: 235 lb 12.8 oz I&O - Last 24 hours: Intake & Output 05/19/20 05/20/20 05/20/20 22:59 06:59 14:59 Intake Total 840 100 Balance 840 100 Lab Results - Last 24 hrs: Laboratory Results - last 24 hr 05/20/20 Range/Units 06:30 PT 19.3 H (9.0-12.0) SEC INR 2.0 H (0.9-1.2) GERRY Results - Last 24 hrs: Microbiology 05/18/20 21:35 Wound Culture - Preliminary Leg, Right 05/18/20 23:18 Aerobic Blood Culture - Preliminary Blood - Arm, Left NO GROWTH AFTER 1 DAY Anaerobic Blood Culture - Preliminary NO GROWTH AFTER 1 DAY 05/18/20 19:33 Aerobic Blood Culture - Preliminary Blood - Venous - Iv Start NO GROWTH AFTER 1 DAY Anaerobic Blood Culture - Preliminary NO GROWTH AFTER 1 DAY Med Orders - Current: Current Medications Acetaminophen (Tylenol) 650 mg PO Q4H PRN PRN Reason: Pain (Mild 1-3)/fever Acetaminophen (Tylenol) 650 mg PO Q4H PRN PRN Reason: mild pain Albuterol/Ipratropium (Duoneb 3.0-0.5 Mg/3 Ml) 3 ml NEB Q4HRRT PRN PRN Reason: sob Allopurinol (Zyloprim) 300 mg PO DAILY [facility] Last Admin: 05/20/20 09:09 Dose: 300 mg Documented by: Budesonide (Pulmicort) 0.5 mg NEB BIDRT [facility] Last Admin: 05/20/20 07:48 Dose: 0.5 mg Documented by: Diphenhydramine HCl (Benadryl) 25 mg PO BEDTIME PRN PRN Reason: Sleep Last Admin: 05/19/20 20:53 Dose: 25 mg Documented by: Docusate Sodium (Colace) 100 mg PO DAILY [facility] Last Admin: 05/20/20 09:05 Dose: 100 mg Documented by: Duloxetine HCl (Cymbalta) 60 mg PO DAILY [facility] Last Admin: 05/20/20 09:06 Dose: 60 mg Documented by: Fentanyl (Duragesic) 50 mcg TOP Q72H [facility] Last Admin: 05/20/20 09:16 Dose: 50 mcg Documented by: Furosemide (Lasix) 40 mg PO DAILY [facility] Last Admin: 05/20/20 09:07 Dose: 40 mg Documented by: Gabapentin (Neurontin) 300 mg PO TID [facility] Last Admin: 05/20/20 09:06 Dose: 300 mg Documented by: Levofloxacin (Levaquin) 500 mg PO Q24H [facility] Last Admin: 05/19/20 13:32 Dose: 500 mg Documented by: Levothyroxine Sodium (Synthroid) 88 mcg PO ACBREAKFAST [facility] Last Admin: 05/20/20 05:52 Dose: 88 mcg Documented by: Losartan Potassium (Cozaar) 25 mg PO DAILY [facility] Last Admin: 05/20/20 09:09 Dose: 25 mg Documented by: Multivitamins (Thera) 1 each PO DAILY [facility] Last Admin: 05/20/20 09:08 Dose: 1 each Documented by: Ondansetron HCl (Zofran Odt) 4 mg PO Q6H PRN PRN Reason: nausea, able to take PO Oxycodone/Acetaminophen (Percocet 325-5 Mg) 1 tab PO Q6H PRN PRN Reason: moderate pain Last Admin: 05/20/20 09:06 Dose: 1 tab Documented by: Polyethylene Glycol (Miralax) 17 gm PO ASDIRECTED PRN PRN Reason: Constipation Last Admin: 05/20/20 09:10 Dose: 17 gm Documented by: Sodium Chloride (Saline Flush) 10 ml FLUSH ASDIRECTED PRN PRN Reason: Keep Vein Open Spironolactone (Aldactone) 12.5 mg PO DAILY [facility] Last Admin: 05/20/20 09:08 Dose: 12.5 mg Documented by: Tiotropium [place] (Spiriva Handihaler) 18 mcg INH DAILY [facility] Last Admin: 05/20/20 09:11 Dose: 18 mcg Documented by: Warfarin Sodium (Pharmacy To Dose - Warfarin) 1 dose .XX ASDIRECTED [facility] Warfarin Sodium (Coumadin) 6 mg PO ONETIME ONE Stop: 05/20/20 14:01 Zolpidem Tartrate (Ambien) 5 mg PO BEDTIME PRN PRN Reason: for sleep Last Admin: 05/19/20 20:52 Dose: 5 mg Documented by: Discontinued Medications Heparin Sodium (Porcine) (Heparin Sodium) 5,000 units SUBCUT Q8HR [facility] Piperacillin Sod/Tazobactam (Sod 3.375 gm/ Sodium Chloride) 100 mls @ 200 ml s/hr IV Q6H [facility] Last Admin: 05/19/20 12:54 Dose: Not Given Documented by: Vancomycin HCl (Vancomycin 1.5 Gm/300 Ml Premix) 300 mls @ 200 mls/hr IV Q12H [facility] Last Admin: 05/19/20 00:14 Dose: 200 mls/hr Documented by: Iopamidol (Isovue-300 (61%)) 100 ml IVPUSH ONETIME ONE Stop: 05/18/20 19:24 Last Admin: 05/18/20 19:52 Dose: 100 ml Documented by: Vancomycin HCl (Pharmacy To Dose - Vancomycin) 1 dose .XX ASDIRECTED CHIKIS Warfarin Sodium (Coumadin) 6 mg PO ONETIME ONE Stop: 05/19/20 14:01 Last Admin: 05/19/20 13:32 Dose: 6 mg Documented by: - Exam General: Reports: Alert, Oriented Neck: Reports: Supple Lungs: Reports: Clear to Auscultation, Normal Respiratory Effort Cardiovascular: Reports: Regular Rate, Regular Rhythm GI/Abdominal Exam: Normal Bowel Sounds, Soft, Non-Tender Extremities: No Pedal Edema Skin: Reports: Other (r. foot surgical wound with clear base and edges, below knee another (smaller) area of hematoma palpable) Neurological: Reports: No New Focal Deficit Psy/Mental Status: Reports: Alert, Normal Affect, Normal Mood
[2020-05-20] MEDS: Levofloxacin 500 MG Tab PO SCH (12:26)
[2020-05-20] MEDS: Warfarin 2 MG Tab PO ONE ×2 (12:27→13:44)
--- NOTE | 2020-05-22 08:12 | ER ---
This is an emergency room consult for an infected right leg. INTRODUCTION: This 75-year-old male presents to the emergency room with an abscess, fluctuant area and draining, on the lateral portion of the right upper leg just below the knee. The patient is on Coumadin. He really does not have any symptoms from this, but it is open and draining. By examination, I did unroof necrotic skin area, and by digital palpation, this extends up about 10 cm superiorly and 5 cm inferiorly to this necrotic area of skin. He generally has insensate skin and I did not even need to use local, but I extended the incision upward a few inches and downward a few inches to have this as an open area to drain and then packed it with a 4 x 4's gauze. This should allow the subcutaneous tissue to drain adequately. By CT scan, it did not seem to go into the muscle, did not represent Kaur gangrene or severe infection. The dressing was then secured with a Kerlix around the leg. The patient will be admitted to the Medicine Service for medical care and wound care. [facility] /[id number]
== END 2020-05-20 13:15 | disposition home or self-care (01) | DRG 603 ==
LOC: DL.ED 18:02 → DL.MS 21:42
PROVIDERS: ADMIT Internal Medicine; ATTEND Internal Medicine
DX: L03.115 Cellulitis of right lower limb (principal); I48.20 Chronic atrial fibrillation, unspecified; I13.0 Hypertensive heart and chronic kidney disease with heart failure and stage 1 through stage 4 chronic kidney disease, or unspecified chronic kidney disease; N18.30 Chronic kidney disease, stage 3 unspecified; G89.29 Other chronic pain; J44.9 Chronic obstructive pulmonary disease, unspecified; G47.30 Sleep apnea, unspecified; S80.11XD Contusion of right lower leg, subsequent encounter; G47.33 Obstructive sleep apnea (adult) (pediatric); E03.9 Hypothyroidism, unspecified; L02.415 Cutaneous abscess of right lower limb; H66.002 Acute suppurative otitis media without spontaneous rupture of ear drum, left ear; Z96.641 Presence of right artificial hip joint; Z96.651 Presence of right artificial knee joint; Z88.1 Allergy status to other antibiotic agents; K59.09 Other constipation; D63.1 Anemia in chronic kidney disease; B95.8 Unspecified staphylococcus as the cause of diseases classified elsewhere; Z79.01 Long term (current) use of anticoagulants; Z86.711 Personal history of pulmonary embolism; Z86.718 Personal history of other venous thrombosis and embolism; Z88.0 Allergy status to penicillin; Z88.8 Allergy status to other drugs, medicaments and biological substances; Z79.899 Other long term (current) drug therapy; M19.90 Unspecified osteoarthritis, unspecified site; Z79.890 Hormone replacement therapy; I50.9 Heart failure, unspecified
CPT/HCPCS: 36415; 73701; 80053; 83605; 83615; 85025; 85610; 85730; 86140; 87040; 87070; Q9967; 80048; 87077; 87186; 94640; 99221; 99232; 99238; 99284; A9270-GY; J2543; J3370; J7050

== ENCOUNTER 2021-01-11 11:13 | Emergency (ER) | payer MEDICARE, OTHER ==
[2021-01-11] MEDS ORDERED: Sodium Chloride 0.9% 10 ML Syringe FLUSH PRN (11:23)
--- NOTE | 2021-01-11 11:35 | EDM.PDOC ---
ED HPI GENERAL MEDICAL PROBLEM - General Chief Complaint: Respiratory Problem Stated Complaint: SENT FROM CLINIC Time Seen by Provider: 01/11/21 11:15 Source of Information: Reports: Patient History Limitations: Reports: No Limitations - History of Present Illness INITIAL COMMENTS - FREE TEXT/NARRATIVE: 75 y/o M c/o sob cough x 3 days. Was seen at the [facility] by a provider Cale PARRISH and sent over here. Tested for COVID it was neg. Has been coughing up baig sputum. No similar symptoms in the past. Denies CHF but is on lasixs. Hx of COPD, afib, is on warfarin. Denies fever, chills, CP, abd pn, recent trauma, drugs etoh. Onset: Gradual Duration: Day(s): Location: Reports: Chest Improves with: Reports: Rest Worsens with: Reports: Movement - Related Data Allergies Allergy/AdvReac Type Severity Reaction Status Date / Time amoxicillin [From Augmentin] Allergy Nausea and Verified 05/21/20 16:08 Vomiting clavulanic acid Allergy Nausea and Verified 05/21/20 16:08 [From Augmentin] Vomiting Home Meds: Home Meds Acetaminophen [Tylenol] 2 tab PO Q4H PRN 10/16/16 [History] Albuterol Sulfate [Proventil Hfa] 2 inh INH Q4H PRN 10/16/16 [History] Budesonide/Formoterol Fumarate [Symbicort 160-4.5 Mcg Inhaler] 2 inh INH BID 10/16/16 [History] Docusate Sodium [Colace] 100 mg PO DAILY 10/16/16 [History] Furosemide [Lasix] 40 mg PO DAILY 10/16/16 [History] Gabapentin [Neurontin] 300 mg PO TID 10/16/16 [History] Garlic 1 tab PO DAILY 10/16/16 [History] Multivitamin [Multi-Vitamin Daily] 1 tab PO DAILY 10/16/16 [History] Polyethylene Glycol 3350 [MiraLAX] 17 gm PO ASDIRECTED PRN 10/16/16 [History] Spironolactone [Aldactone] 12.5 mg PO DAILY 10/16/16 [History] Tiotropium [Spiriva HandiHaler] 1 inh INH DAILY 10/16/16 [History] DULoxetine [Cymbalta] 60 mg PO DAILY 06/12/19 [History] Losartan [Cozaar] 25 mg PO DAILY 06/12/19 [History] allopurinoL [Zyloprim] 300 mg PO DAILY 06/12/19 [History] oxyCODONE HCl/Acetaminophen [Endocet 5-325 Tablet] 1 tab PO Q6H PRN 06/12/19 [History] traZODone HCl [Trazodone HCl] 50 mg PO DAILY 06/12/19 [History] Warfarin [Coumadin] 3 mg PO .MON,WED,THURS 04/29/20 [History] Warfarin [Coumadin] 6 mg PO .SUN,TU,FRI,SAT 04/29/20 [History] Levothyroxine [Synthroid] 88 mcg PO ACBREAKFAST 05/18/20 [History] fentaNYL [Duragesic] 50 patch TOP Q72H 05/18/20 [History] levoFLOXacin [Levaquin] 500 mg PO Q24H #10 tablet 05/20/20 [Rx] Past Medical History HEENT History: Reports: Cataract Cardiovascular History: Reports: Afib, Blood Clots/VTE/DVT, Heart Failure, Hypertension Respiratory History: Reports: COPD, PE, Sleep Apnea Gastrointestinal History: Reports: Chronic Constipation Genitourinary History: Reports: Other (See Below) Other Genitourinary History: Stage III CKD with microalbumiuria Musculoskeletal History: Reports: Arthritis, Back Pain, Chronic, Gout Neurological History: Reports: Head Trauma Psychiatric History: Reports: Addiction Endocrine/Metabolic History: Reports: Hypothyroidism Hematologic History: Reports: Anemia, Other (See Below) Other Hematologic History: anemia of chronic disease Oncologic (Cancer) History: Reports: None Dermatologic History: Reports: Cellulitis - Infectious Disease History Infectious Disease History: Reports: Chicken Pox, Shingles - Past Surgical History Head Surgeries/Procedures: Reports: None HEENT Surgical History: Reports: Cataract Surgery, Tonsillectomy Cardiovascular Surgical History: Reports: None GI Surgical History: Reports: Appendectomy Musculoskeletal Surgical History: Reports: Knee Replacement Other Musculoskeletal Surgeries/Procedures:: rt knee replacement, rt hip replacement, rt shoulder replacement, lt shoulder repair Social & Family History - Family History Family Medical History: No Pertinent Family History - Caffeine Use Caffeine Use: Reports: Coffee, Soda, Tea ED ROS GENERAL - Review of Systems Review Of Systems: Comprehensive ROS is negative, except as noted in HPI. ED EXAM, GENERAL - Physical Exam Exam: See Below Exam Limited By: No Limitations General Appearance: Alert Nose: Normal Inspection, Normal Mucosa, No Blood Throat/Mouth: Normal Inspection, Normal Lips, Normal Teeth, Normal Gums, Normal Oropharynx, Normal Voice, No Airway Compromise Head: Atraumatic, Normocephalic Neck: Supple, Non-Tender Respiratory/Chest: Respiratory Distress (mild respiratory distress, crackles bilaterally) Cardiovascular: Normal Peripheral Pulses, Irregularly Irregular GI/Abdominal: Soft, Non-Tender (Male) Exam: Deferred Rectal (Males) Exam: Deferred Back Exam: Normal Inspection, Full Range of Motion Extremities: Other (2+ pedal edema.) Neurological: Alert, Oriented, Normal Cognition Psychiatric: Normal Affect, Normal Mood Skin Exam: Warm, Dry, Intact #1 Interpretation EKG Date: 01/11/21 Time: 11:47 Rhythm: A-Fib [place]: Normal P-Wave: Absent QRS: Normal ST-T: Normal QT: Normal Course - Vital Signs Last Recorded V/S: Last Vital Signs Temp 98.2 F 01/11/21 11:40 Pulse 77 01/11/21 11:40 Resp 18 01/11/21 11:40 BP 135/91 H 01/11/21 11:40 Pulse Ox 93 L 01/11/21 11:40 - Orders/Labs/Meds Orders: Active Orders 24 hr Category Date Time Status Peripheral IV Care [RC] . DIRECTED Care 01/11/21 11:24 Active CULTURE BLOOD [BC] Stat Lab 01/11/21 11:41 Received CULTURE BLOOD [BC] Stat Lab 01/11/21 11:46 Received Sodium Chloride 0.9% [Saline Flush] Med 01/11/21 11:23 Active 10 ml FLUSH ASDIRECTED PRN Blood Culture x2 Reflex Set [OM.PC] Stat Oth 01/11/21 11:23 Ordered Peripheral IV Insertion Adult [OM.PC] Stat Oth 01/11/21 11:24 Ordered Medication Orders Sodium Chloride (Sodium Chloride 0.9% 10 Ml Syringe) 10 ml FLUSH ASDIRECTED PRN PRN Reason: Keep Vein Open Labs: Laboratory Tests 01/11/21 01/11/21 01/11/21 Range/Units 11:41 11:41 11:41 WBC 9.3 (5.0-10.0) 10^3/uL RBC 4.83 (4.6-6.2) 10^6/uL Hgb 14.7 (14.0-18.0) g/dL Hct 46.7 (40.0-54.0) % MCV 96.7 D (80-100) fL MCH 30.4 (27.0-34.0) pg MCHC 31.5 L (33.0-35.0) g/dL Plt Count 177 (150-450) 10^3/uL Neut % (Auto) 75.8 H (42.2-75.2) % Lymph % (Auto) 12.8 L (20.5-50.1) % [place] % (Auto) 10.2 H (2-8) % Eos % (Auto) 0.8 L (1.0-3.0) % Baso % (Auto) 0.4 (0.0-1.0) % PT 21.8 H (9.0-12.0) SEC INR 2.2 H (0.9-1.2) APTT 35.6 H (22.0-34.0) SEC Sodium 142 (136-145) mmol/L Potassium 5.1 (3.5-5.1) mmol/L Chloride 106 (98-107) mmol/L Carbon Dioxide 30 (21-32) mmol/L Anion Gap 11.1 (7-13) mEq/L BUN 14 (7-18) mg/dL Creatinine 1.22 (0.70-1.30) mg/dL Est Cr Clr Drug Dosing TNP Estimated GFR (MDRD) 58 BUN/Creatinine Ratio 11.5 (No establ ref range) Glucose 123 H (70-99) mg/dL Lactic Acid (0.4-2.0) mmol/L Calcium 8.7 (8.5-10.1) mg/dL Magnesium 1.8 (1.8-2.4) mg/dL Total Bilirubin 1.0 (0.2-1.0) mg/dL AST 28 (15-37) U/L ALT 27 (16-63) U/L Alkaline Phosphatase 139 H (46-116) U/L Troponin I High Sens 47 (<=76) pg/mL B-Natriuretic Peptide 348 H (0-100) pg/ml Total Protein 6.8 (6.4-8.2) g/dL Albumin 3.3 L (3.4-5.0) g/dL Globulin 3.5 Albumin/Globulin Ratio 0.94 01/11/21 Range/Units 11:41 WBC (5.0-10.0) 10^3/uL RBC (4.6-6.2) 10^6/uL Hgb (14.0-18.0) g/dL Hct (40.0-54.0) % MCV (80-100) fL MCH (27.0-34.0) pg MCHC (33.0-35.0) g/dL Plt Count (150-450) 10^3/uL Neut % (Auto) (42.2-75.2) % Lymph % (Auto) (20.5-50.1) % [place] % (Auto) (2-8) % Eos % (Auto) (1.0-3.0) % Baso % (Auto) (0.0-1.0) % PT (9.0-12.0) SEC INR (0.9-1.2) APTT (22.0-34.0) SEC Sodium (136-145) mmol/L Potassium (3.5-5.1) mmol/L Chloride (98-107) mmol/L Carbon Dioxide (21-32) mmol/L Anion Gap (7-13) mEq/L BUN (7-18) mg/dL Creatinine (0.70-1.30) mg/dL Est Cr Clr Drug Dosing Estimated GFR (MDRD) BUN/Creatinine Ratio (No establ ref range) Glucose (70-99) mg/dL Lactic Acid 1.6 (0.4-2.0) mmol/L Calcium (8.5-10.1) mg/dL Magnesium (1.8-2.4) mg/dL Total Bilirubin (0.2-1.0) mg/dL AST (15-37) U/L ALT (16-63) U/L Alkaline Phosphatase (46-116) U/L Troponin I High Sens (<=76) pg/mL B-Natriuretic Peptide (0-100) pg/ml Total Protein (6.4-8.2) g/dL Albumin (3.4-5.0) g/dL Globulin Albumin/Globulin Ratio Meds: Medications Generic Name Dose Route Start Last Admin Trade Name Yaredq PRN Reason Stop Dose Admin Sodium Chloride 10 ml 01/11/21 11:23 Sodium Chloride 0.9% 10 Ml Syringe FLUSH ASDIRECTED PRN Keep Vein Open - Re-Assessments/Exams Free Text/Narrative Re-Assessment/Exam: 01/11/21 13:10 Discussed lab, exam, xray, ekg with pt. Informed him of the negative findings and I believe he has a mild viral illness. Will discharge pt on a short course of steriods and have him follow up with his PCP. Departure - Departure Time of Disposition: 13:12 Disposition: Home, Self-Care 01 Condition: Good Clinical Impression: URI (upper respiratory infection) Qualifiers: URI type: unspecified URI Qualified Code(s): J06.9 - Acute upper respiratory infection, unspecified - Discharge Information *PRESCRIPTION DRUG MONITORING PROGRAM REVIEWED*: Not Applicable *COPY OF PRESCRIPTION DRUG MONITORING REPORT IN PATIENT GENE: Not Applicable Instructions: Viral Respiratory Infection, [id number] Forms: ED Department Discharge Additional Instructions: RX: Prednisone Use tylenol for pain as needed. If you do not improve in the next 7-10 days contact your primary care facility or return to the ER. Sepsis Event Note (ED) - Focused Exam Vital Signs: Vital Signs Temp Pulse Resp BP Pulse Ox 01/11/21 11:40 98.2 F 77 18 135/91 H 93 L
[2021-01-11 12:07] VITALS: BP 135/91; PULSE 77
[2021-01-11 12:13] LABS: PTT,PARTIAL THROMBOPLSTIN TIME 35.6 SEC (22.0-34.0)
[2021-01-11 12:23] LABS: ANION GAP 11.1 mEq/L (7-13); CHLORIDE,CL 106 mmol/L (98-107); SODIUM,NA 142 mmol/L (136-145)
--- NOTE | 2021-01-11 13:01 | CR ---
EXAMINATION: Chest 1V Frontal SEX: Male AGE: 75 years CLINICAL HISTORY: 75-year-old male with history COPD and CHF who presents now short of breath (hypoxic). Comparison CXR 12 June 2019. Interpretation: Abnormal but.... general appearance unchanged i.e. no new signs of alveolar edema or pleural effusion or focal lobar consolidation since 12 June 2019 comparison exam. Abnormally enlarged cardiac silhouette without vascular congestion or alveolar edema. Chronic bibasilar infiltrate and pleural parenchymal fibrosis blunting the costophrenic sulci (R>L). No new lung mass or hilar lymphadenopathy. No new alveolar consolidation (infiltrate) or peripheral "groundglass" interstitial lung densities. No pneumothorax or pneumomediastinum. Normal midline tracheal bronchial airways. Total orthopedic replacement left shoulder as demonstrated previously.
== END 2021-01-11 13:18 | disposition home or self-care (01) ==
LOC: DL.ED 11:13
DX: J06.9 Acute upper respiratory infection, unspecified (principal); I48.91 Unspecified atrial fibrillation; I13.0 Hypertensive heart and chronic kidney disease with heart failure and stage 1 through stage 4 chronic kidney disease, or unspecified chronic kidney disease; N18.30 Chronic kidney disease, stage 3 unspecified; I50.9 Heart failure, unspecified; J44.9 Chronic obstructive pulmonary disease, unspecified; M10.9 Gout, unspecified; E03.9 Hypothyroidism, unspecified; Z86.711 Personal history of pulmonary embolism; Z88.0 Allergy status to penicillin; Z88.1 Allergy status to other antibiotic agents; Z79.01 Long term (current) use of anticoagulants; Z79.899 Other long term (current) drug therapy
CPT/HCPCS: 36415; 71045; 80053; 83605; 83735; 83880; 84484; 85025; 85610; 85730; 87040; 93005; 99284-25

== ENCOUNTER 2021-02-01 22:44 | Emergency (ER) | payer MEDICARE, OTHER ==
[2021-02-01 23:02] VITALS: BP 143/85; PULSE 92
[2021-02-01] MEDS ORDERED: methylPREDNISolone Sodium Succinate 125 MG/2 ML SDV IVPUSH ONE (23:24)
[2021-02-01] MEDS ORDERED: Sodium Chloride 0.9% 10 ML Syringe FLUSH PRN (23:24)
--- NOTE | 2021-02-01 23:30 | EDM.PDOC ---
ED HPI GENERAL MEDICAL PROBLEM - General Chief Complaint: Respiratory Problem Stated Complaint: TROUBLE BREATHING, COVID NEG Time Seen by Provider: 02/01/21 23:20 Source of Information: Reports: Patient History Limitations: Reports: No Limitations - History of Present Illness INITIAL COMMENTS - FREE TEXT/NARRATIVE: Pt is here for worsening shortness of breath. He reports he was in here last week and was given steroids. He was told it was viral. He got better, then it started getting worse again over the last 1-2 days. Per chart review, he was here on 01/11, about 3 weeks ago. Work up at that time was negative. Pt denies any fevers or chills. Some cough with phlegm. No nausea or vomiting. No other recent illnesses. He was tested for COVID last visit and was negative. Pt in itial reported he got better then worse, then stated it is the same as last visit and there had been no change. He does wear oxygen at home for COPD, but was noted to be slightly more hypoxic and short of breath on arrival to the ER. - Related Data Allergies Allergy/AdvReac Type Severity Reaction Status Date / Time amoxicillin [From Augmentin] Allergy Nausea and Verified 05/21/20 16:08 Vomiting clavulanic acid Allergy Nausea and Verified 05/21/20 16:08 [From Augmentin] Vomiting Home Meds: Home Meds Acetaminophen [Tylenol] 2 tab PO Q4H PRN 10/16/16 [History] Albuterol Sulfate [Proventil Hfa] 2 inh INH Q4H PRN 10/16/16 [History] Budesonide/Formoterol Fumarate [Symbicort 160-4.5 Mcg Inhaler] 2 inh INH BID 10/16/16 [History] Docusate Sodium [Colace] 100 mg PO DAILY 10/16/16 [History] Furosemide [Lasix] 40 mg PO DAILY 10/16/16 [History] Gabapentin [Neurontin] 300 mg PO TID 10/16/16 [History] Garlic 1 tab PO DAILY 10/16/16 [History] Multivitamin [Multi-Vitamin Daily] 1 tab PO DAILY 10/16/16 [History] Polyethylene Glycol 3350 [MiraLAX] 17 gm PO ASDIRECTED PRN 10/16/16 [History] Spironolactone [Aldactone] 12.5 mg PO DAILY 10/16/16 [History] Tiotropium [Spiriva HandiHaler] 1 inh INH DAILY 10/16/16 [History] DULoxetine [Cymbalta] 60 mg PO DAILY 06/12/19 [History] Losartan [Cozaar] 25 mg PO DAILY 06/12/19 [History] allopurinoL [Zyloprim] 300 mg PO DAILY 06/12/19 [History] oxyCODONE HCl/Acetaminophen [Endocet 5-325 Tablet] 1 tab PO Q6H PRN 06/12/19 [History] traZODone HCl [Trazodone HCl] 50 mg PO DAILY 06/12/19 [History] Warfarin [Coumadin] 3 mg PO .MON,WED,THURS 04/29/20 [History] Warfarin [Coumadin] 6 mg PO .SUN,TU,FRI,SAT 04/29/20 [History] Levothyroxine [Synthroid] 88 mcg PO ACBREAKFAST 05/18/20 [History] fentaNYL [Duragesic] 50 patch TOP Q72H 05/18/20 [History] Past Medical History HEENT History: Reports: Cataract Cardiovascular History: Reports: Afib, Blood Clots/VTE/DVT, Heart Failure, Hypertension Respiratory History: Reports: COPD, PE, Sleep Apnea Gastrointestinal History: Reports: Chronic Constipation Genitourinary History: Reports: Other (See Below) Other Genitourinary History: Stage III CKD with microalbumiuria Musculoskeletal History: Reports: Arthritis, Back Pain, Chronic, Gout Neurological History: Reports: Head Trauma Psychiatric History: Reports: Addiction Endocrine/Metabolic History: Reports: Hypothyroidism Hematologic History: Reports: Anemia, Other (See Below) Other Hematologic History: anemia of chronic disease Immunologic History: Reports: None Oncologic (Cancer) History: Reports: None Dermatologic History: Reports: Cellulitis - Infectious Disease History Infectious Disease History: Reports: Chicken Pox, Shingles - Past Surgical History Head Surgeries/Procedures: Reports: None HEENT Surgical History: Reports: Cataract Surgery, Tonsillectomy Cardiovascular Surgical History: Reports: None GI Surgical History: Reports: Appendectomy Musculoskeletal Surgical History: Reports: Knee Replacement Other Musculoskeletal Surgeries/Procedures:: rt knee replacement, rt hip replacement, rt shoulder replacement, lt shoulder repair Social & Family History - Family History Family Medical History: No Pertinent Family History - Tobacco Use Tobacco Use Status *Q: Former Tobacco User Years of Tobacco use: 40 Packs/Tins Daily: 0 Used Tobacco, but Quit: Yes Month/Year Tobacco Last Used: - Caffeine Use Caffeine Use: Reports: Coffee - Recreational Drug Use Recreational Drug Use: No ED ROS GENERAL - Review of Systems Review Of Systems: Comprehensive ROS is negative, except as noted in HPI. ED EXAM, GENERAL - Physical Exam Exam: See Below Exam Limited By: No Limitations General Appearance: Alert, Mild Distress (due to shortness of breath) Eye Exam: Bilateral Eye: Normal Inspection Ears: Normal External Exam Throat/Mouth: Normal Voice, No Airway Compromise Head: Atraumatic, Normocephalic Neck: Supple, Non-Tender Respiratory/Chest: No Accessory Muscle Use, Respiratory Distress (mild with shortened sentences and increased respirations), Decreased Breath Sounds (bilateral lower lungs), Wheezing (throughout), Other Cardiovascular: Normal Peripheral Pulses, No Murmur, Irregularly Irregular (normal rate) GI/Abdominal: Soft, Non-Tender, No Distention (Male) Exam: Deferred Rectal (Males) Exam: Deferred Back Exam: Normal Inspection, Full Range of Motion Extremities: Normal Inspection, Normal Range of Motion Neurological: Alert, Oriented, No Motor/Sensory Deficits Psychiatric: Normal Affect, Normal Mood Skin Exam: Warm, Dry, Intact Course - Vital Signs Last Recorded V/S: Last Vital Signs Temp 98.4 F 02/01/21 23:01 Pulse 92 02/01/21 23:01 Resp 26 H 02/01/21 23:01 BP 143/85 H 02/01/21 23:01 Pulse Ox 82 L 02/01/21 23:01 - Orders/Labs/Meds Orders: Active Orders 24 hr Category Date Time Status Peripheral IV Care [RC] . DIRECTED Care 02/01/21 23:25 Active RT Aerosol Therapy [RC] ASDIRECTED Care 02/02/21 00:16 Active Chest 1V Frontal [CR] Stat Exams 02/02/21 00:15 Taken Sodium Chloride 0.9% [Saline Flush] Med 02/01/21 23:24 Active 10 ml FLUSH ASDIRECTED PRN Peripheral IV Insertion Adult [OM.PC] Stat Oth 02/01/21 23:24 Ordered Medication Orders Sodium Chloride (Sodium Chloride 0.9% 10 Ml Syringe) 10 ml FLUSH ASDIRECTED PRN PRN Reason: Keep Vein Open Last Admin: 02/01/21 23:49 Dose: 10 ml Documented by: MARIELA Labs: Laboratory Tests 02/01/21 02/01/21 Range/Units 23:30 23:30 WBC 11.4 H (5.0-10.0) 10^3/uL RBC 4.86 (4.6-6.2) 10^6/uL Hgb 14.8 (14.0-18.0) g/dL Hct 45.7 (40.0-54.0) % MCV 94.0 (80-100) fL MCH 30.5 (27.0-34.0) pg MCHC 32.4 L (33.0-35.0) g/dL Plt Count 159 (150-450) 10^3/uL Neut % (Auto) 77.0 H (42.2-75.2) % Lymph % (Auto) 9.9 L (20.5-50.1) % [place] % (Auto) 10.9 H (2-8) % Eos % (Auto) 1.8 (1.0-3.0) % Baso % (Auto) 0.4 (0.0-1.0) % Sodium 138 (136-145) mmol/L Potassium 4.7 (3.5-5.1) mmol/L Chloride 102 (98-107) mmol/L Carbon Dioxide 29 (21-32) mmol/L Anion Gap 11.7 (7-13) mEq/L BUN 21 H (7-18) mg/dL Creatinine 1.19 (0.70-1.30) mg/dL Est Cr Clr Drug Dosing 65.09 mL/min Estimated GFR (MDRD) 60 BUN/Creatinine Ratio 17.6 (No establ ref range) Glucose 145 H (70-99) mg/dL Calcium 8.9 (8.5-10.1) mg/dL Total Bilirubin 1.1 H (0.2-1.0) mg/dL AST 25 (15-37) U/L ALT 28 (16-63) U/L Alkaline Phosphatase 146 H (46-116) U/L Total Protein 6.8 (6.4-8.2) g/dL Albumin 3.2 L (3.4-5.0) g/dL Globulin 3.6 Albumin/Globulin Ratio 0.89 Meds: Medications Generic Name Dose Route Start Last Admin Trade Name Ham PRN Reason Stop Dose Admin Sodium Chloride 10 ml 02/01/21 23:24 02/01/21 23:49 Sodium Chloride 0.9% 10 Ml Syringe FLUSH 10 ml ASDIRECTED PRN Administration Keep Vein Open Discontinued Medications Generic Name Dose Route Start Last Admin Trade Name Freq PRN Reason Stop Dose Admin Albuterol/Ipratropium 3 ml 02/02/21 00:16 02/02/21 00:25 Albuterol/Ipratropium 3.0-0.5 Mg/3 Ml Neb Soln NEB 02/02/21 00:17 3 ml ONETIME ONE Administration Azithromycin 500 mg 02/02/21 00:37 Azithromycin 250 Mg Tab PO 02/02/21 00:38 ONETIME ONE Methylprednisolone Sodium Succinate 125 mg 02/01/21 23:24 02/01/21 23:48 Methylprednisolone Sodium Succinate 125 Mg/2 Ml Sdv IVPUSH 02/01/21 23:25 125 mg ONETIME ONE Administration - Re-Assessments/Exams Free Text/Narrative Re-Assessment/Exam: Pt reports he is feeling better after the IV steroids and nebulizer treatment. Reviewed labs and xray with the pt. Will start on z-pack for possible secondary bacterial infection given increase in WBC. Also given steroid burst. Pt verbalized understanding of the treatment plan and is ready for discharge. 02/02/21 00:39 Departure - Departure Time of Disposition: 00:40 Disposition: Home, Self-Care 01 Condition: Fair Clinical Impression: COPD exacerbation - Discharge Information *PRESCRIPTION DRUG MONITORING PROGRAM REVIEWED*: Not Applicable *COPY OF PRESCRIPTION DRUG MONITORING REPORT IN PATIENT GENE: Not Applicable Instructions: Chronic Obstructive Pulmonary Disease, [id number] Forms: ED Department Discharge Additional Instructions: Azithromycin 250 mg daily for 4 additional days, first dose of 500 mg given in the ER Prednisone 40 mg daily for 4 additional days, first dose of steroids given via IV in the ER If symptoms worsen, call/return to the ER Follow up with your primary care provider in 3-5 days, or sooner if needed. Sepsis Event Note (ED) - Focused Exam Vital Signs: Vital Signs Temp Pulse Resp BP Pulse Ox 02/01/21 23:01 98.4 F 92 26 H 143/85 H 82 L - My Orders Last 24 Hours: My Active Orders 02/01/21 23:24 Sodium Chloride 0.9% [Saline Flush] 10 ml FLUSH ASDIRECTED PRN Peripheral IV Insertion Adult [OM.PC] Stat 02/01/21 23:25 Peripheral IV Care [RC] . DIRECTED 02/02/21 00:15 Chest 1V Frontal [CR] Stat 02/02/21 00:16 RT Aerosol Therapy [RC] ASDIRECTED - Assessment/Plan Last 24 Hours: My Active Orders 02/01/21 23:24 Sodium Chloride 0.9% [Saline Flush] 10 ml FLUSH ASDIRECTED PRN Peripheral IV Insertion Adult [OM.PC] Stat 02/01/21 23:25 Peripheral IV Care [RC] . DIRECTED 02/02/21 00:15 Chest 1V Frontal [CR] Stat 02/02/21 00:16 RT Aerosol Therapy [RC] ASDIRECTED
[2021-02-01 23:57] LABS: ANION GAP 11.7 mEq/L (7-13)
[2021-02-02] MEDS ORDERED: Albuterol/Ipratropium 3.0-0.5 MG/3 ML Neb Soln NEB ONE (00:16)
[2021-02-02] MEDS ORDERED: Azithromycin 250 MG Tab PO ONE (00:37)
--- NOTE | 2021-02-02 01:06 | CR ---
PROCEDURE INFORMATION: Exam: XR Chest Exam date and time: 02/02/2021 12:19 AM Age: 75 years old Clinical indication: Shortness of breath TECHNIQUE: Imaging protocol: XR of the chest. Views: 1 view. COMPARISON: CR Chest 1V Frontal 01/11/2021 11:35 AM FINDINGS: Lungs: Emphysematous changes are seen in both upper lobes but more pronounced on the left. Extensive patchy areas of parenchymal opacification are seen through the mid and lower lung barrera than are less extensive at the right base at this time though slightly increased at the left base currently as compared to previous. Consider pneumonia or aspiration. Pleural spaces: Unremarkable. No pleural effusion. No pneumothorax. Heart/Mediastinum: The heart is enlarged but without definitive changes of failure. Bones/joints: Old healed bilateral rib fractures are noted. A left shoulder arthroplasty is again noted. IMPRESSION: Extension cardiomegaly but without definitive failure. 2. Emphysematous changes upper lobes, greater on the left. 3. Bibasilar parenchymal opacifications that are slightly different from previous.
== END 2021-02-02 01:04 | disposition home or self-care (01) ==
LOC: DL.ED 22:44
DX: J44.1 Chronic obstructive pulmonary disease with (acute) exacerbation (principal); I13.0 Hypertensive heart and chronic kidney disease with heart failure and stage 1 through stage 4 chronic kidney disease, or unspecified chronic kidney disease; N18.30 Chronic kidney disease, stage 3 unspecified; I50.9 Heart failure, unspecified; E03.9 Hypothyroidism, unspecified; D63.1 Anemia in chronic kidney disease; M10.9 Gout, unspecified; Z88.0 Allergy status to penicillin; Z79.01 Long term (current) use of anticoagulants; Z79.899 Other long term (current) drug therapy; Z87.891 Personal history of nicotine dependence
CPT/HCPCS: 36415; 71045; 80053; 85025; 96374; 99285; A9270; J2930; J7620-GY

== ENCOUNTER 2021-02-22 12:29 | Inpatient (IN) | payer MEDICARE, OTHER ==
[~2021-02-22 12:29] MED LIST changes: -Albuterol 0.083% 2.5 MG/3 ML Neb Soln INH ONE; +Albuterol/Ipratropium 3.0-0.5 MG/3 ML Neb Soln NEB ONE; +Magnesium Sulfate/Water 2 GM in Premix Bag 1 BAG IV ONE; +methylPREDNISolone Sodium Succinate 125 MG/2 ML SDV IVPUSH ONE
[2021-02-22 13:04] LABS: ANION GAP 13.3 mEq/L (7-13)
--- NOTE | 2021-02-22 13:13 | EDM.PDOC ---
ED HPI GENERAL MEDICAL PROBLEM - General Chief Complaint: Respiratory Problem Stated Complaint: AMBULANCE Time Seen by Provider: 02/22/21 12:29 Source of Information: Reports: Patient History Limitations: Reports: No Limitations - History of Present Illness INITIAL COMMENTS - FREE TEXT/NARRATIVE: 76 y/o M brought in by ems for sob that started last night. Pt hx of copd, afib, is on warfarin. Reports productive cough. Denies fever, chills, trauma, drugs, etoh. Back Pain Score (Numeric/FACES): 5 - Related Data Allergies Allergy/AdvReac Type Severity Reaction Status Date / Time amoxicillin [From Augmentin] Allergy Nausea and Verified 02/22/21 12:34 Vomiting clavulanic acid Allergy Nausea and Verified 02/22/21 12:34 [From Augmentin] Vomiting Home Meds: Home Meds Acetaminophen [Tylenol] 2 tab PO Q4H PRN 10/16/16 [History] Albuterol Sulfate [Proventil Hfa] 2 inh INH Q4H PRN 10/16/16 [History] Budesonide/Formoterol Fumarate [Symbicort 160-4.5 Mcg Inhaler] 2 inh INH BID 10/16/16 [History] Docusate Sodium [Colace] 100 mg PO DAILY PRN 10/16/16 [History] Gabapentin [Neurontin] 300 mg PO TID 10/16/16 [History] Garlic 1 tab PO DAILY 10/16/16 [History] Multivitamin [Multi-Vitamin Daily] 1 tab PO DAILY 10/16/16 [History] Polyethylene Glycol 3350 [MiraLAX] 17 gm PO ASDIRECTED PRN 10/16/16 [History] Spironolactone [Aldactone] 12.5 mg PO DAILY 10/16/16 [History] Tiotropium [Spiriva HandiHaler] 1 inh INH DAILY 10/16/16 [History] DULoxetine [Cymbalta] 60 mg PO DAILY 06/12/19 [History] oxyCODONE HCl/Acetaminophen [Endocet 5-325 Tablet] 1 tab PO Q4H PRN 06/12/19 [History] traZODone HCl [Trazodone HCl] 50 mg PO DAILY 06/12/19 [History] Warfarin [Coumadin] 3 mg PO .MON,WED,THURS 04/29/20 [History] Warfarin [Coumadin] 6 mg PO .SUN,TUES,FRI,SAT 04/29/20 [History] Levothyroxine [Synthroid] 88 mcg PO ACBREAKFAST 05/18/20 [History] fentaNYL [Duragesic] 50 patch TOP Q72H 05/18/20 [History] Albuterol [Ventolin HFA] 2 puff INH Q4H PRN 02/22/21 [History] Allopurinol [Zyloprim] 150 mg PO DAILY 02/22/21 [History] Diclofenac Sodium [Voltaren 1% Gel] 1 g TOP BID PRN 02/22/21 [History] Furosemide 80 mg PO DAILY 02/22/21 [History] Sennosides [Ex-Lax Maximum Strength] 25 mg PO DAILY PRN 02/22/21 [History] Past Medical History HEENT History: Reports: Cataract Cardiovascular History: Reports: Afib, Blood Clots/VTE/DVT, Heart Failure, Hypertension Respiratory History: Reports: COPD, PE, Sleep Apnea Gastrointestinal History: Reports: Chronic Constipation Genitourinary History: Reports: Other (See Below) Other Genitourinary History: Stage III CKD with microalbumiuria Musculoskeletal History: Reports: Arthritis, Back Pain, Chronic, Gout Neurological History: Reports: Head Trauma Psychiatric History: Reports: Addiction Endocrine/Metabolic History: Reports: Hypothyroidism Hematologic History: Reports: Anemia, Other (See Below) Other Hematologic History: anemia of chronic disease Immunologic History: Reports: None Oncologic (Cancer) History: Reports: None Dermatologic History: Reports: Cellulitis - Infectious Disease History Infectious Disease History: Reports: Chicken Pox, Shingles - Past Surgical History Head Surgeries/Procedures: Reports: None HEENT Surgical History: Reports: Cataract Surgery, Tonsillectomy Cardiovascular Surgical History: Reports: None GI Surgical History: Reports: Appendectomy Musculoskeletal Surgical History: Reports: Knee Replacement Other Musculoskeletal Surgeries/Procedures:: rt knee replacement, rt hip replacement, rt shoulder replacement, lt shoulder repair Social & Family History - Family History Family Medical History: No Pertinent Family History - Tobacco Use Tobacco Use Status *Q: Unknown Ever Used Tobacco - Caffeine Use Caffeine Use: Reports: Coffee - Alcohol Use Days Per Week of Alcohol Use: 7 Number of Drinks Per Day: 1 Total Drinks Per Week: 7 - Recreational Drug Use Recreational Drug Use: No ED ROS GENERAL - Review of Systems Review Of Systems: Comprehensive ROS is negative, except as noted in HPI. ED EXAM, GENERAL - Physical Exam Exam: See Below Exam Limited By: No Limitations General Appearance: Alert, Mild Distress Eye Exam: Bilateral Eye: PERRL Nose: Normal Inspection, Normal Mucosa, No Blood Throat/Mouth: Normal Inspection, Normal Lips, Normal Teeth, Normal Gums, Normal Oropharynx, Normal Voice, No Airway Compromise Head: Atraumatic, Normocephalic Neck: Normal Inspection, Supple, Non-Tender, Full Range of Motion Respiratory/Chest: Respiratory Distress, Other (diminshed throughout with wheezes in the uppers) Cardiovascular: Tachycardia, Irregularly Irregular GI/Abdominal: Soft, Non-Tender (Male) Exam: Deferred Rectal (Males) Exam: Deferred Back Exam: Normal Inspection, Full Range of Motion Extremities: Normal Inspection, Normal Range of Motion, Non-Tender, Normal Capillary Refill, No Pedal Edema Neurological: Alert, Oriented Skin Exam: Warm, Dry, Intact Course - Vital Signs Last Recorded V/S: Last Vital Signs Temp 98.9 F 02/24/21 11:39 Pulse 79 02/24/21 11:39 Resp 18 02/24/21 11:39 BP 130/77 02/24/21 11:39 Pulse Ox 94 L 02/24/21 11:39 - Orders/Labs/Meds Orders: Medication Orders Acetaminophen (Acetaminophen 325 Mg Tab) 650 mg PO Q4H PRN PRN Reason: Pain (Mild 1-3)/fever Albuterol/Ipratropium (Albuterol/Ipratropium 3.0-0.5 Mg/3 Ml Neb Soln) 3 ml NEB Q4HRRT PRN PRN Reason: Dyspnea Allopurinol (Allopurinol 100 Mg Tab) 300 mg PO DAILY [facility] Last Admin: 02/24/21 08:59 Dose: 300 mg Documented by: Admin: 02/23/21 08:25 Dose: 300 mg Documented by: KEITH Docusate Sodium (Docusate Sodium 100 Mg Cap) 100 mg PO DAILY [facility] Last Admin: 02/24/21 09:01 Dose: 100 mg Documented by: Admin: 02/23/21 08:26 Dose: 100 mg Documented by: KEITH Duloxetine HCl (Duloxetine 30 Mg Cap) 60 mg PO DAILY [facility] Last Admin: 02/24/21 09:02 Dose: 60 mg Documented by: Admin: 02/23/21 08:26 Dose: 60 mg Documented by: KEITH Furosemide (Furosemide 40 Mg Tab) 40 mg PO DAILY [facility] Last Admin: 02/24/21 09:02 Dose: 40 mg Documented by: Admin: 02/23/21 08:27 Dose: 40 mg Documented by: KEITH Gabapentin (Gabapentin 300 Mg Cap) 300 mg PO TID [facility] Last Admin: 02/24/21 09:01 Dose: 300 mg Documented by: Admin: 02/24/21 01:52 Dose: Not Given Documented by: Admin: 02/23/21 19:51 Dose: 300 mg Documented by: Admin: 02/23/21 13:58 Dose: 300 mg Documented by: Admin: 02/23/21 08:26 Dose: 300 mg Documented by: Admin: 02/22/21 21:18 Dose: Not Given Documented by: Admin: 02/22/21 19:02 Dose: 300 mg Documented by: ANTWAN Levothyroxine Sodium (Levothyroxine 88 Mcg Tab) 88 mcg PO ACBREAKFAST [facility] Last Admin: 02/24/21 05:13 Dose: 88 mcg Documented by: Admin: 02/23/21 06:01 Dose: 88 mcg Documented by: CONY Losartan Potassium (Losartan 25 Mg Tab) 25 mg PO DAILY [facility] Last Admin: 02/24/21 09:04 Dose: 25 mg Documented by: Admin: 02/23/21 08:26 Dose: 25 mg Documented by: KEITH Mometasone Furoate/Formoterol Fumar (Formoterol/Mometasone 200-5 Mcg 8.8 Gm Inhaler) 2 puff IH BIDRT [facility] Last Admin: 02/24/21 08:33 Dose: 2 puff Documented by: Admin: 02/23/21 19:52 Dose: 2 puff Documented by: Admin: 02/23/21 18:53 Dose: 2 puff Documented by: Admin: 02/23/21 07:33 Dose: 2 puff Documented by: Admin: 02/22/21 21:13 Dose: 2 puff Documented by: CONY Multivitamins/Minerals/Vitamin C (Multivitamin Tab) 1 tab PO DAILY [facility] Last Admin: 02/24/21 09:01 Dose: 1 tab Documented by: Admin: 02/23/21 08:26 Dose: 1 tab Documented by: KEITH Ondansetron HCl (Ondansetron 4 Mg Tab.Dis) 4 mg PO Q6H PRN PRN Reason: nausea, able to take PO Oxycodone/Acetaminophen (Acetaminophen/Oxycodone 325-5 Mg Tab) 1 tab PO Q4H PRN PRN Reason: Pain Last Admin: 02/24/21 10:54 Dose: 1 tab Documented by: Admin: 02/24/21 05:12 Dose: 1 tab Documented by: Admin: 02/24/21 01:05 Dose: 1 tab Documented by: Admin: 02/23/21 19:44 Dose: 1 tab Documented by: Admin: 02/23/21 15:35 Dose: 1 tab Documented by: Admin: 02/23/21 11:35 Dose: 1 tab Documented by: Admin: 02/23/21 07:31 Dose: 1 tab Documented by: Admin: 02/23/21 03:16 Dose: 1 tab Documented by: Admin: 02/22/21 23:12 Dose: 1 tab Documented by: Admin: 02/22/21 19:02 Dose: 1 tab Documented by: ANTWAN Polyethylene Glycol (Polyethylene Glycol 3350 Powder 17 Gm Packet) 17 gm PO DAILY PRN PRN Reason: Constipation Spironolactone (Spironolactone 25 Mg Tab) 12.5 mg PO DAILY [facility] Last Admin: 02/24/21 09:00 Dose: 12.5 mg Documented by: Admin: 02/23/21 08:26 Dose: 12.5 mg Documented by: KEITH Tiotropium [place] (Tiotropium Inhaler 18 Mcg Inhalation Powder Cap Kit Of 5) 18 mcg INH DAILY [facility] Last Admin: 02/24/21 09:09 Dose: 18 mcg Documented by: Admin: 02/23/21 08:27 Dose: 18 mcg Documented by: KEITH Trazodone HCl (Trazodone 50 Mg Tab) 50 mg PO BEDTIME [facility] Last Admin: 02/24/21 01:52 Dose: Not Given Documented by: Admin: 02/23/21 19:51 Dose: 50 mg Documented by: Admin: 02/22/21 21:14 Dose: 50 mg Documented by: CONY Warfarin Sodium (Warfarin 2 Mg Tab) 3 mg PO MoWeTh@1400 [facility] Warfarin Sodium (Warfarin 2 Mg Tab) 6 mg PO SuTuFrSa@1400 [facility] Last Admin: 02/23/21 14:03 Dose: 6 mg Documented by: Admin: 02/22/21 22:34 Dose: 6 mg Documented by: CONY Labs: Laboratory Tests 02/22/21 02/22/21 02/22/21 Range/Units 12:30 12:33 12:33 WBC 20.5 H (5.0-10.0) 10^3/uL RBC 4.83 (4.6-6.2) 10^6/uL Hgb 14.8 (14.0-18.0) g/dL Hct 47.0 (40.0-54.0) % MCV 97.3 D (80-100) fL MCH 30.6 (27.0-34.0) pg MCHC 31.5 L (33.0-35.0) g/dL Plt Count 194 (150-450) 10^3/uL Neut % (Auto) 88.2 H (42.2-75.2) % Lymph % (Auto) 3.9 L (20.5-50.1) % [place] % (Auto) 7.6 (2-8) % Eos % (Auto) 0.1 L (1.0-3.0) % Baso % (Auto) 0.2 (0.0-1.0) % Add Manual Diff Yes Neutrophils % (Manual) 67 (42-75) % Band Neutrophils % 16 % Lymphocytes % (Manual) 5 L (20-50) % Monocytes % (Manual) 10 H (2-8) % Eosinophils % (Manual) 1 (1-3) % Metamyelocytes % 1 Toxic Granulation 1+ slight PT 19.2 H (9.0-12.0) SEC INR 1.9 H (0.9-1.2) Sodium (136-145) mmol/L Potassium (3.5-5.1) mmol/L Chloride (98-107) mmol/L Carbon Dioxide (21-32) mmol/L Anion Gap (7-13) mEq/L BUN (7-18) mg/dL Creatinine (0.70-1.30) mg/dL Est Cr Clr Drug Dosing mL/min Estimated GFR (MDRD) BUN/Creatinine Ratio (No establ ref range) Glucose (70-99) mg/dL Lactic Acid (0.4-2.0) mmol/L Calcium (8.5-10.1) mg/dL Magnesium (1.8-2.4) mg/dL Total Bilirubin (0.2-1.0) mg/dL AST (15-37) U/L ALT (16-63) U/L Alkaline Phosphatase (46-116) U/L Troponin I High Sens (<=76) pg/mL C-Reactive Protein (0.0-0.9) mg/dL B-Natriuretic Peptide (0-100) pg/ml Total Protein (6.4-8.2) g/dL Albumin (3.4-5.0) g/dL Globulin Albumin/Globulin Ratio SARS-CoV-2 RNA (DHARMESH) Negative (NEGATIVE) 02/22/21 02/22/21 Range/Units 12:33 12:33 WBC (5.0-10.0) 10^3/uL RBC (4.6-6.2) 10^6/uL Hgb (14.0-18.0) g/dL Hct (40.0-54.0) % MCV (80-100) fL MCH (27.0-34.0) pg MCHC (33.0-35.0) g/dL Plt Count (150-450) 10^3/uL Neut % (Auto) (42.2-75.2) % Lymph % (Auto) (20.5-50.1) % [place] % (Auto) (2-8) % Eos % (Auto) (1.0-3.0) % Baso % (Auto) (0.0-1.0) % Add Manual Diff Neutrophils % (Manual) (42-75) % Band Neutrophils % % Lymphocytes % (Manual) (20-50) % Monocytes % (Manual) (2-8) % Eosinophils % (Manual) (1-3) % Metamyelocytes % Toxic Granulation PT (9.0-12.0) SEC INR (0.9-1.2) Sodium 143 (136-145) mmol/L Potassium 4.3 (3.5-5.1) mmol/L Chloride 103 (98-107) mmol/L Carbon Dioxide 31 (21-32) mmol/L Anion Gap 13.3 H (7-13) mEq/L BUN 23 H (7-18) mg/dL Creatinine 1.30 (0.70-1.30) mg/dL Est Cr Clr Drug Dosing 58.68 mL/min Estimated GFR (MDRD) 54 BUN/Creatinine Ratio 17.7 (No establ ref range) Glucose 138 H (70-99) mg/dL Lactic Acid 1.7 (0.4-2.0) mmol/L Calcium 9.1 (8.5-10.1) mg/dL Magnesium 1.7 L (1.8-2.4) mg/dL Total Bilirubin 2.4 H (0.2-1.0) mg/dL AST 22 (15-37) U/L ALT 22 (16-63) U/L Alkaline Phosphatase 153 H (46-116) U/L Troponin I High Sens 58 (<=76) pg/mL C-Reactive Protein 6.2 H (0.0-0.9) mg/dL B-Natriuretic Peptide 636 H (0-100) pg/ml Total Protein 7.2 (6.4-8.2) g/dL Albumin 3.2 L (3.4-5.0) g/dL Globulin 4.0 Albumin/Globulin Ratio 0.80 SARS-CoV-2 RNA (DHARMESH) (NEGATIVE) Meds: Medications Generic Name Dose Route Start Last Admin Trade Name Freq PRN Reason Stop Dose Admin Acetaminophen 650 mg 02/22/21 15:47 Acetaminophen 325 Mg Tab PO Q4H PRN Pain (Mild 1-3)/fever Albuterol/Ipratropium 3 ml 02/22/21 15:47 Albuterol/Ipratropium 3.0-0.5 Mg/3 Ml Neb Soln NEB Q4HRRT PRN Dyspnea Allopurinol 300 mg 02/23/21 09:00 02/24/21 08:59 Allopurinol 100 Mg Tab PO 300 mg DAILY [facility] Administration Docusate Sodium 100 mg 02/23/21 09:00 02/24/21 09:01 Docusate Sodium 100 Mg Cap PO 100 mg DAILY [facility] Administration Duloxetine HCl 60 mg 02/23/21 09:00 02/24/21 09:02 Duloxetine 30 Mg Cap PO 60 mg DAILY [facility] Administration Furosemide 40 mg 02/23/21 09:00 02/24/21 09:02 Furosemide 40 Mg Tab PO 40 mg DAILY [facility] Administration Gabapentin 300 mg 02/22/21 21:00 02/24/21 09:01 Gabapentin 300 Mg Cap PO 300 mg TID [facility] Administration Levothyroxine Sodium 88 mcg 02/23/21 06:00 02/24/21 05:13 Levothyroxine 88 Mcg Tab PO 88 mcg ACBREAKFAST [facility] Administration Losartan Potassium 25 mg 02/23/21 09:00 02/24/21 09:04 Losartan 25 Mg Tab PO 25 mg DAILY [facility] Administration Mometasone Furoate/Formoterol Fumar 2 puff 02/22/21 21:00 02/24/21 08:33 Formoterol/Mometasone 200-5 Mcg 8.8 Gm Inhaler IH 2 puff BIDRT [facility] Administration Multivitamins/Minerals/Vitamin C 1 tab 02/23/21 09:00 02/24/21 09:01 Multivitamin Tab PO 1 tab DAILY [facility] Administration Ondansetron HCl 4 mg 02/22/21 15:47 Ondansetron 4 Mg Tab.Dis PO Q6H PRN nausea, able to take PO Oxycodone/Acetaminophen 1 tab 02/22/21 18:35 02/24/21 10:54 Acetaminophen/Oxycodone 325-5 Mg Tab PO 1 tab Q4H PRN Administration Pain Polyethylene Glycol 17 gm 02/22/21 23:23 Polyethylene Glycol 3350 Powder 17 Gm Packet PO DAILY PRN Constipation Spironolactone 12.5 mg 02/23/21 09:00 02/24/21 09:00 Spironolactone 25 Mg Tab PO 12.5 mg DAILY [facility] Administration Tiotropium [place] 18 mcg 02/23/21 09:00 02/24/21 09:09 Tiotropium Inhaler 18 Mcg Inhalation Powder Cap Kit Of 5 INH 18 mcg DAILY [facility] Administration Trazodone HCl 50 mg 02/22/21 21:00 02/24/21 01:52 Trazodone 50 Mg Tab PO Not Given BEDTIME [facility] Warfarin Sodium 3 mg 02/25/21 14:00 Warfarin 2 Mg Tab PO MoWeTh@1400 [facility] Warfarin Sodium 6 mg 02/22/21 22:15 02/23/21 14:03 Warfarin 2 Mg Tab PO 6 mg SuTuFrSa@1400 [facility] Administration Discontinued Medications Generic Name Dose Route Start Last Admin Trade Name Ham PRN Reason Stop Dose Admin Albuterol 5 mg 02/22/21 13:57 02/22/21 14:10 Albuterol 0.083% 2.5 Mg/3 Ml Neb Soln NEB 02/22/21 13:58 5 mg ONETIME ONE Administration Albuterol/Ipratropium 6 ml 02/22/21 12:23 02/22/21 12:34 Albuterol/Ipratropium 3.0-0.5 Mg/3 Ml Neb Soln NEB 02/22/21 12:24 6 ml ONETIME ONE Administration Dexamethasone 20 mg 02/23/21 06:00 02/23/21 21:34 Dexamethasone 4 Mg/Ml Sdv IVPUSH 02/23/21 22:01 20 mg Q8H [facility] Administration Fentanyl mcg 02/22/21 18:45 Fentanyl 50 Mcg/Hr Transdermal Patch TOP Q72H [facility] Magnesium Sulfate 2 gm/ Premix 50 mls @ 25 mls/hr 02/22/21 12:25 02/22/21 14:05 IV 02/22/21 14:24 25 mls/hr ONETIME ONE Administration Levofloxacin/Dextrose 750 mg/ 150 mls @ 100 mls/hr 02/22/21 14:11 02/22/21 14:34 Premix IV 02/22/21 15:40 100 mls/hr ONETIME ONE Administration Lactated Ringer's 500 mls @ 999 mls/hr 02/22/21 14:19 02/22/21 15:15 Ringers, Lactated IV 02/22/21 14:49 125 mls/hr .BOLUS ONE Administration Methylprednisolone Sodium Succinate 125 mg 02/22/21 12:28 02/22/21 14:03 Methylprednisolone Sodium Succinate 125 Mg/2 Ml Sdv IVPUSH 02/22/21 12:29 125 mg ONETIME ONE Administration - Re-Assessments/Exams Free Text/Narrative Re-Assessment/Exam: 02/22/21 14:[address] Sal who accepted the pt for inpatient treatment and requested the pt get 500 cc bolus of LR while waiting for admission Departure - Departure Time of Disposition: 14:22 (Dr. Sal) Disposition: Admitted As Inpatient 67 Condition: Fair Clinical Impression: Pneumonia Qualifiers: Pneumonia type: due to unspecified organism Laterality: right Lung location: lower lobe of lung Qualified Code(s): J18.9 - Pneumonia, unspecified organism - Discharge Information *PRESCRIPTION DRUG MONITORING PROGRAM REVIEWED*: Not Applicable *COPY OF PRESCRIPTION DRUG MONITORING REPORT IN PATIENT GENE: Not Applicable Sepsis Event Note (ED) - Evaluation Sepsis Screening Result: No Definite Risk
--- NOTE | 2021-02-22 13:42 | CR ---
PROCEDURE INFORMATION: Exam: XR Chest Exam date and time: 02/22/2021 1:16 PM Age: 76 years old Clinical indication: Shortness of breath; Additional info: SOB TECHNIQUE: Imaging protocol: XR of the chest. Views: 1 view. COMPARISON: CR Chest 1V Frontal 02/02/2021 12:19 AM FINDINGS: Lungs: COPD with chronic appearing interstitial changes in the left base. Acute consolidation in the right lower lobe. Pleural spaces: Unremarkable. No pleural effusion. No pneumothorax. Heart/Mediastinum: Cardiomegaly. Bones/joints: Unremarkable. Other findings: Left TSA. IMPRESSION: 1. Cardiomegaly, stable. 2. COPD with nonspecific interstitial changes in the left mid/lower lung field. 3. Right lower lobe pneumonitis
[2021-02-22] MEDS ORDERED: Albuterol 0.083% 2.5 MG/3 ML Neb Soln NEB ONE (13:57)
[2021-02-22] MEDS ORDERED: Levofloxacin/Dextrose 5%-Water 750 MG in Premix Bag 1 BAG IV ONE (14:11)
[2021-02-22] MEDS ORDERED: Lactated Ringers 500 ML IV ONE (14:19)
[2021-02-22] MEDS ORDERED: Albuterol/Ipratropium 3.0-0.5 MG/3 ML Neb Soln NEB PRN (15:47)
[2021-02-22] MEDS ORDERED: Acetaminophen 325 MG Tab PO PRN (15:47)
[2021-02-22] MEDS ORDERED: Ondansetron 4 MG Tab.DIS PO PRN (15:47)
[2021-02-22] MEDS ORDERED: Polyethylene Glycol 3350 Powder 17 GM Packet PO PRN ×2 (18:35→23:23)
[2021-02-22] MEDS ORDERED: fentaNYL 50 MCG/HR Transdermal Patch TOP SCH (18:45)
--- NOTE | 2021-02-22 18:47 | PCM.HP ---
H&P History of Present Illness - General Date of Service: 02/22/21 Admit Problem/Dx: Admission Diagnosis/Problem Admission Diagnosis/Problem Pneumonia - History of Present Illness Initial Comments - Free Text/Narative: Bradley is a 76-year-old man who presented to the ED today with 1 day history of shortness of breath. He has fairly brittle COPD, and has had frequent exacerbations in the past. He is on a number of inhalers at home, including an inhaled corticosteroid. Upon presentation of the ER, he was found to have oxygen saturations between 86 and 90% on 3 to 4 L of oxygen. He was also noted to have a blood pressure at the lower end of acceptable range, between 100-105 systolic over 60-70 diastolic. Bradley has a significant past history for non-ST elevation myocardial infarction; severe coronary artery disease; chronic atrial fibrillation, currently anticoagulated with Coumadin; chronic kidney disease stage III - Related Data Allergies/Adverse Reactions: Allergies Allergy/AdvReac Type Severity Reaction Status Date / Time amoxicillin [From Augmentin] Allergy Nausea and Verified 02/22/21 12:34 Vomiting clavulanic acid Allergy Nausea and Verified 02/22/21 12:34 [From Augmentin] Vomiting Home Medications: Home Meds Acetaminophen [Tylenol] 2 tab PO Q4H PRN 10/16/16 [History] Albuterol Sulfate [Proventil Hfa] 2 inh INH Q4H PRN 10/16/16 [History] Budesonide/Formoterol Fumarate [Symbicort 160-4.5 Mcg Inhaler] 2 inh INH BID 10/16/16 [History] Docusate Sodium [Colace] 100 mg PO DAILY 10/16/16 [History] Furosemide [Lasix] 40 mg PO DAILY 10/16/16 [History] Gabapentin [Neurontin] 300 mg PO TID 10/16/16 [History] Garlic 1 tab PO DAILY 10/16/16 [History] Multivitamin [Multi-Vitamin Daily] 1 tab PO DAILY 10/16/16 [History] Polyethylene Glycol 3350 [MiraLAX] 17 gm PO ASDIRECTED PRN 10/16/16 [History] Spironolactone [Aldactone] 12.5 mg PO DAILY 10/16/16 [History] Tiotropium [Spiriva HandiHaler] 1 inh INH DAILY 06/15/17 [History] DULoxetine [Cymbalta] 60 mg PO DAILY 06/12/19 [History] Losartan [Cozaar] 25 mg PO DAILY 06/12/19 [History] allopurinoL [Zyloprim] 300 mg PO DAILY 06/12/19 [History] oxyCODONE HCl/Acetaminophen [Endocet 5-325 Tablet] 1 tab PO Q4H PRN 06/12/19 [History] traZODone HCl [Trazodone HCl] 50 mg PO DAILY 06/12/19 [History] Warfarin [Coumadin] 3 mg PO .MON,WED,THURS 04/29/20 [History] Warfarin [Coumadin] 6 mg PO .SUN,TU,THU,SAT 04/29/20 [History] Levothyroxine [Synthroid] 88 mcg PO ACBREAKFAST 05/18/20 [History] fentaNYL [Duragesic] 50 patch TOP Q72H 05/18/20 [History] Past Medical History HEENT History: Reports: Cataract Cardiovascular History: Reports: Afib, Blood Clots/VTE/DVT, Heart Failure, Hypertension, [place] Respiratory History: Reports: COPD, PE, Sleep Apnea Gastrointestinal History: Reports: Chronic Constipation Genitourinary History: Reports: Other (See Below) Other Genitourinary History: Stage III CKD with microalbumiuria Musculoskeletal History: Reports: Arthritis, Back Pain, Chronic, Gout Neurological History: Reports: Head Trauma Psychiatric History: Reports: Addiction Endocrine/Metabolic History: Reports: Hypothyroidism Hematologic History: Reports: Anemia, Other (See Below) Other Hematologic History: anemia of chronic disease Immunologic History: Reports: None Oncologic (Cancer) History: Reports: None Dermatologic History: Reports: Cellulitis - Infectious Disease History Infectious Disease History: Reports: Chicken Pox, Shingles - Past Surgical History Head Surgeries/Procedures: Reports: None HEENT Surgical History: Reports: Cataract Surgery, Tonsillectomy Cardiovascular Surgical History: Reports: None GI Surgical History: Reports: Appendectomy Musculoskeletal Surgical History: Reports: Knee Replacement Other Musculoskeletal Surgeries/Procedures:: rt knee replacement, rt hip replacement, rt shoulder replacement, lt shoulder repair Social & Family History - Family History Family Medical History: No Pertinent Family History - Tobacco Use Tobacco Use Status *Q: Unknown Ever Used Tobacco - Caffeine Use Caffeine Use: Reports: Coffee - Alcohol Use Days Per Week of Alcohol Use: 7 Number of Drinks Per Day: 1 Total Drinks Per Week: 7 - Recreational Drug Use Recreational Drug Use: No H&P Review of Systems - Review of Systems: Review Of Systems: See Below General: Denies: Fever, Chills HEENT: Denies: Hearing Changes, Vertigo, Visual Changes Pulmonary: Reports: Other (See HPI) Cardiovascular: Denies: Chest Pain, Palpitations Gastrointestinal: Denies: Diarrhea, Hematochezia, Melena, Vomiting Genitourinary: Denies: Dysuria, Hematuria Musculoskeletal: Denies: Joint Pain, Joint Swelling Skin: Denies: Lesions, Lumps Neurological: Denies: Dizziness, Headache, Syncope Hematologic/Lymphatic: Denies: Easy Bleeding, Easy Bruising Review of Systems Comment:: Rest of his review of systems is complete and negative Exam - Exam Exam: See Below (Absolutely important for the past) - Vital Signs Vital Signs: Last Vital Signs Temp 98.9 F 02/22/21 16:28 Pulse 94 02/22/21 16:28 Resp 20 02/22/21 16:28 BP 118/63 02/22/21 16:03 Pulse Ox 91 L 02/22/21 16:36 Weight: 242 lb 4 oz - Exam Physical Exam Comments:: General: Bradley is a 76-year-old man in no acute distress. He is showing signs of mild respiratory distress, with mild tachypnea but no accessory muscle use Oropharynx is clear, mucous membranes are moist Neck: Supple, no lymphadenopathy Heart: Irregularly irregular with a rate of 80 Lungs: Significant crackles and wheezing bilaterally. Very distant breath sounds throughout Abdomen: Soft, nontender to palpation, normal bowel sounds heard throughout - Patient Data Lab Results Last 24 hrs: Laboratory Results - last 24 hr 02/22/21 02/22/21 02/22/21 Range/Units 12:30 12:33 12:33 WBC 20.5 H (5.0-10.0) 10^3/uL RBC 4.83 (4.6-6.2) 10^6/uL Hgb 14.8 (14.0-18.0) g/dL Hct 47.0 (40.0-54.0) % MCV 97.3 D (80-100) fL MCH 30.6 (27.0-34.0) pg MCHC 31.5 L (33.0-35.0) g/dL Plt Count 194 (150-450) 10^3/uL Neut % (Auto) 88.2 H (42.2-75.2) % Lymph % (Auto) 3.9 L (20.5-50.1) % [place] % (Auto) 7.6 (2-8) % Eos % (Auto) 0.1 L (1.0-3.0) % Baso % (Auto) 0.2 (0.0-1.0) % Add Manual Diff Yes Neutrophils % (Manual) 67 (42-75) % Band Neutrophils % 16 % Lymphocytes % (Manual) 5 L (20-50) % Monocytes % (Manual) 10 H (2-8) % Eosinophils % (Manual) 1 (1-3) % Metamyelocytes % 1 Toxic Granulation 1+ slight PT 19.2 H (9.0-12.0) SEC INR 1.9 H (0.9-1.2) Sodium (136-145) mmol/L Potassium (3.5-5.1) mmol/L Chloride (98-107) mmol/L Carbon Dioxide (21-32) mmol/L Anion Gap (7-13) mEq/L BUN (7-18) mg/dL Creatinine (0.70-1.30) mg/dL Est Cr Clr Drug Dosing mL/min Estimated GFR (MDRD) BUN/Creatinine Ratio (No establ ref range) Glucose (70-99) mg/dL Lactic Acid (0.4-2.0) mmol/L Calcium (8.5-10.1) mg/dL Magnesium (1.8-2.4) mg/dL Total Bilirubin (0.2-1.0) mg/dL AST (15-37) U/L ALT (16-63) U/L Alkaline Phosphatase (46-116) U/L Troponin I High Sens (<=76) pg/mL C-Reactive Protein (0.0-0.9) mg/dL B-Natriuretic Peptide (0-100) pg/ml Total Protein (6.4-8.2) g/dL Albumin (3.4-5.0) g/dL Globulin Albumin/Globulin Ratio Urine Color (YELLOW) Urine Appearance (CLEAR) Urine pH (5.0-9.0) Ur Specific [place] (1.005-1.030) Urine Protein (NEGATIVE) Urine Glucose (UA) (NEGATIVE) Urine Ketones (NEGATIVE) Urine Occult Blood (NEGATIVE) Urine Nitrite (NEGATIVE) Urine Bilirubin (NEGATIVE) Urine Urobilinogen (0.2-1.0) mg/dL Ur Leukocyte Esterase (NEGATIVE) U Hyaline Cast (Auto) Urine RBC (0-5) /HPF Urine WBC (0-5/HPF) /HPF Ur Epithelial Cells (NOT SEEN) /HPF Urine Mucus (NOT SEEN) /LPF SARS-CoV-2 RNA (DHARMESH) Negative (NEGATIVE) 02/22/21 02/22/21 02/22/21 Range/Units 12:33 12:33 17:25 WBC (5.0-10.0) 10^3/uL RBC (4.6-6.2) 10^6/uL Hgb (14.0-18.0) g/dL Hct (40.0-54.0) % MCV (80-100) fL MCH (27.0-34.0) pg MCHC (33.0-35.0) g/dL Plt Count (150-450) 10^3/uL Neut % (Auto) (42.2-75.2) % Lymph % (Auto) (20.5-50.1) % [place] % (Auto) (2-8) % Eos % (Auto) (1.0-3.0) % Baso % (Auto) (0.0-1.0) % Add Manual Diff Neutrophils % (Manual) (42-75) % Band Neutrophils % % Lymphocytes % (Manual) (20-50) % Monocytes % (Manual) (2-8) % Eosinophils % (Manual) (1-3) % Metamyelocytes % Toxic Granulation PT (9.0-12.0) SEC INR (0.9-1.2) Sodium 143 (136-145) mmol/L Potassium 4.3 (3.5-5.1) mmol/L Chloride 103 (98-107) mmol/L Carbon Dioxide 31 (21-32) mmol/L Anion Gap 13.3 H (7-13) mEq/L BUN 23 H (7-18) mg/dL Creatinine 1.30 (0.70-1.30) mg/dL Est Cr Clr Drug Dosing 58.68 mL/min Estimated GFR (MDRD) 54 BUN/Creatinine Ratio 17.7 (No establ ref range) Glucose 138 H (70-99) mg/dL Lactic Acid 1.7 (0.4-2.0) mmol/L Calcium 9.1 (8.5-10.1) mg/dL Magnesium 1.7 L (1.8-2.4) mg/dL Total Bilirubin 2.4 H (0.2-1.0) mg/dL AST 22 (15-37) U/L ALT 22 (16-63) U/L Alkaline Phosphatase 153 H (46-116) U/L Troponin I High Sens 58 (<=76) pg/mL C-Reactive Protein 6.2 H (0.0-0.9) mg/dL B-Natriuretic Peptide 636 H (0-100) pg/ml Total Protein 7.2 (6.4-8.2) g/dL Albumin 3.2 L (3.4-5.0) g/dL Globulin 4.0 Albumin/Globulin Ratio 0.80 Urine Color [place] (YELLOW) Urine Appearance Clear (CLEAR) Urine pH 6.5 (5.0-9.0) Ur Specific [place] 1.020 (1.005-1.030) Urine Protein 30 H (NEGATIVE) Urine Glucose (UA) Negative (NEGATIVE) Urine Ketones 15 H (NEGATIVE) Urine Occult Blood Trace-intact H (NEGATIVE) Urine Nitrite Negative (NEGATIVE) Urine Bilirubin Small H (NEGATIVE) Urine Urobilinogen 0.2 (0.2-1.0) mg/dL Ur Leukocyte Esterase Negative (NEGATIVE) U Hyaline Cast (Auto) Few Urine RBC 0-5 (0-5) /HPF Urine WBC 0-5 (0-5/HPF) /HPF Ur Epithelial Cells Few (NOT SEEN) /HPF Urine Mucus Few H (NOT SEEN) /LPF SARS-CoV-2 RNA (DHARMESH) (NEGATIVE) Result Diagrams: 02/22/21 12:33 02/22/21 12:33 *Q Meaningful Use (ADM) - VTE Risk Assess *Q Each Risk Factor Represents 3 Points: Age 75 Years or Greater, History of DVT/PE Total Score 3 Point Risk Factors: 6 - Problem List (1) COPD exacerbation SNOMED Code(s): 962861026, 887845428 ICD Code: J44.1 - CHRONIC OBSTRUCTIVE PULMONARY DISEASE W (ACUTE) EXACERBATI ON Status: Acute Current Visit: Yes (2) Chronic a-fib SNOMED Code(s): 875465368 ICD Code: I48.2 - CHRONIC ATRIAL FIBRILLATION * DO NOT USE * Status: Acute Current Visit: Yes (3) CKD (chronic kidney disease) stage 3, GFR 30-59 ml/min SNOMED Code(s): 807099043 ICD Code: N18.30 - CHRONIC KIDNEY DISEASE, STAGE 3 UNSPECIFIED Status: Acute Current Visit: No Problem List Initiated/Reviewed/Updated: Yes Orders Last 24hrs: Active Orders 24 hr Category Date Time Status Admission Diagnosis [ADT] Stat ADT 02/22/21 14:25 Ordered Admission Status [Patient Status] [ADT] Routine ADT 02/22/21 14:25 Active CPAP Adult [RT BiPAP/CPAP] [RC] ASDIRECTED Care 02/22/21 15:27 Active Cardiac Monitoring [RC] CONTINUOUS Care 02/22/21 15:49 Active Oxygen Therapy [RC] PRN Care 02/22/21 15:47 Active Pulse Oximetry [RC] CONTINUOUS Care 02/22/21 15:49 Active RT Aerosol Therapy [RC] ASDIRECTED Care 02/22/21 15:50 Active RT Post Treatment Assessment [RC] Click to Edit Care 02/22/21 18:36 Active RT Pre-Treatment Assessment [RC] Click to Edit Care 02/22/21 18:36 Active Up to Chair [RC] ASDIRECTED Care 02/22/21 15:47 Active VTE/DVT Education [RC] PER UNIT ROUTINE Care 02/22/21 15:47 Active Vital Signs [RC] Q2H Care 02/22/21 15:47 Active Regular Diet [DIET] Diet 02/22/21 Dinner Active CBC WITH AUTO DIFF [HEME] AM Lab 02/23/21 05:11 Ordered COMPREHENSIVE METABOLIC PN,CMP [CHEM] AM Lab 02/23/21 05:11 Ordered CULTURE BLOOD [BC] Stat Lab 02/22/21 12:33 Received CULTURE BLOOD [BC] Stat Lab 02/22/21 12:36 Received Acetaminophen [TylenoL] Med 02/22/21 15:47 Active 650 mg PO Q4H PRN Acetaminophen/oxyCODONE [Percocet 325-5 MG] Med 02/22/21 18:35 Ordered 1 tab PO Q4H PRN Albuterol/Ipratropium [DuoNeb 3.0-0.5 MG/3 ML] Med 02/22/21 15:47 Active 3 ml NEB Q4HRRT PRN Budesonide/Formoterol Med 02/22/21 21:00 Ordered 2 inh INH BID DULoxetine [Cymbalta] Med 02/23/21 09:00 Ordered 60 mg PO DAILY Docusate Sodium [Colace] Med 02/23/21 09:00 Ordered 100 mg PO DAILY Furosemide [Lasix] Med 02/23/21 09:00 Ordered 40 mg PO DAILY Gabapentin [Neurontin] Med 02/22/21 21:00 Ordered 300 mg PO TID Levothyroxine [Synthroid] Med 02/23/21 06:00 Ordered 88 mcg PO ACBREAKFAST Losartan [Cozaar] Med 02/23/21 09:00 Ordered 25 mg PO DAILY Multivitamin [Multi-Vitamin Daily] Med 02/23/21 09:00 Ordered 1 tab PO DAILY Ondansetron [Zofran ODT] Med 02/22/21 15:47 Active 4 mg PO Q6H PRN Spironolactone [Aldactone] Med 02/23/21 09:00 Ordered 12.5 mg PO DAILY Tiotropium [Spiriva HandiHaler] Med 02/23/21 09:00 Ordered DOSE mcg INH DAILY Warfarin Med 02/22/21 18:45 Ordered 3 mg PO .MON,WED,TH Warfarin Med 02/22/21 18:45 Ordered 6 mg PO .SUN,,THU,SAT allopurinoL [Zyloprim] Med 02/23/21 09:00 Ordered 300 mg PO DAILY polyethylene glycoL 3350 [MiraLAX] Med 02/22/21 18:35 Ordered 17 gm PO ASDIRECTED PRN traZODone Med 02/22/21 18:45 Ordered 50 mg PO DAILY Blood Culture x2 Reflex Set [OM.PC] Stat Oth 02/22/21 12:24 Ordered Medication Orders Acetaminophen (Acetaminophen 325 Mg Tab) 650 mg PO Q4H PRN PRN Reason: Pain (Mild 1-3)/fever Albuterol/Ipratropium (Albuterol/Ipratropium 3.0-0.5 Mg/3 Ml Neb Soln) 3 ml NEB Q4HRRT PRN PRN Reason: Dyspnea Allopurinol (Allopurinol 100 Mg Tab) 300 mg PO DAILY [facility] Docusate Sodium (Docusate Sodium 100 Mg Cap) 100 mg PO DAILY [facility] Furosemide (Furosemide 80 Mg Tab) 40 mg PO DAILY [facility] Gabapentin (Gabapentin 300 Mg Cap) 300 mg PO TID [facility] Levothyroxine Sodium (Levothyroxine 88 Mcg Tab) 88 mcg PO ACBREAKFAST [facility] Losartan Potassium (Losartan 25 Mg Tab) 25 mg PO DAILY [facility] Non-Formulary Medication (Warfarin) 3 mg PO .MON,WED,THURS [facility] Non-Formulary Medication (Warfarin) 6 mg PO .THU,,THU,SAT [facility] Non-Formulary Medication (Multivitamin [Multi-Vitamin Daily]) 1 tab PO DAILY [facility] Non-Formulary Medication (Duloxetine [Cymbalta]) 60 mg PO DAILY [facility] Non-Formulary Medication (Budesonide/Formoterol) 2 inh INH BID [facility] Ondansetron HCl (Ondansetron 4 Mg Tab.Dis) 4 mg PO Q6H PRN PRN Reason: nausea, able to take PO Oxycodone/Acetaminophen (Acetaminophen/Oxycodone 325-5 Mg Tab) 1 tab PO Q4H PRN PRN Reason: Pain Polyethylene Glycol (Polyethylene Glycol 3350 Powder 17 Gm Packet) 17 gm PO ASDIRECTED PRN PRN Reason: Constipation Spironolactone (Spironolactone 25 Mg Tab) 12.5 mg PO DAILY [facility] Tiotropium [place] (Tiotropium Inhaler 18 Mcg Inhalation Powder Cap Kit Of 5) mcg INH DAILY [facility] Trazodone HCl (Trazodone 50 Mg Tab) 50 mg PO DAILY [facility] Assessment/Plan Comment:: Assessment/Plan: 1. 76-year-old man with acute exacerbation of chronic obstructive pulmonary disease -Continue home nebulizers and inhaled corticosteroids -Dexamethasone, 20 mg IV every 8 hours x3 doses -We will try to wean him off of BiPAP as soon as possible 2. Chronic atrial fibrillation, currently anticoagulated with Coumadin -Continue home Coumadin, will have pharmacy assist with dosing -Continue metoprolol and other blood pressure medications 3. Chronic kidney disease, stage III -We will keep an eye on his intake and output as well as daily weight 4. VTE prophylaxis: He is already anticoagulated with Coumadin, so does not need any additional mechanical or pharmacological VTE prophylaxis
[2021-02-22] MEDS: Acetaminophen/oxyCODONE 325-5 MG Tab PO PRN ×2 (19:02→23:12)
[2021-02-22] MEDS: Gabapentin 300 MG Cap PO SCH ×2 (19:02→21:18)
[2021-02-22] MEDS ORDERED: BUDESONIDE INH SCH (21:00)
[2021-02-22] MEDS ORDERED: FORMOTEROL INH SCH (21:00)
[2021-02-22] MEDS: Formoterol/Mometasone 200-5 MCG 8.8 GM Inhaler IH SCH (21:13)
[2021-02-22] MEDS: traZODone 50 MG Tab PO SCH (21:14)
[2021-02-22] MEDS: Warfarin 2 MG Tab PO SCH (22:34)
[2021-02-23] MEDS: Acetaminophen/oxyCODONE 325-5 MG Tab PO PRN ×5 (03:16→19:44)
[2021-02-23] MEDS: Levothyroxine 88 MCG Tab PO SCH (06:01)
[2021-02-23] MEDS: Dexamethasone 4 MG/ML SDV IVPUSH SCH ×3 (06:01→21:34)
[2021-02-23 06:59] LABS: ANION GAP 9.8 mEq/L (7-13)
[2021-02-23] MEDS: Formoterol/Mometasone 200-5 MCG 8.8 GM Inhaler IH SCH ×3 (07:33→19:52)
[2021-02-23] MEDS: Allopurinol 100 MG Tab PO SCH (08:25)
[2021-02-23] MEDS: Spironolactone 25 MG Tab PO SCH (08:26)
[2021-02-23] MEDS: Docusate Sodium 100 MG Cap PO SCH (08:26)
[2021-02-23] MEDS: Multivitamin Tab PO SCH (08:26)
[2021-02-23] MEDS: Losartan 25 MG Tab PO SCH (08:26)
[2021-02-23] MEDS: Gabapentin 300 MG Cap PO SCH ×3 (08:26→19:51)
[2021-02-23] MEDS: DULoxetine 30 MG Cap PO SCH (08:26)
[2021-02-23] MEDS: Furosemide 40 MG Tab PO SCH (08:27)
[2021-02-23] MEDS: Tiotropium Inhaler 18 MCG Inhalation Powder Cap Kit of 5 INH SCH (08:27)
[2021-02-23] MEDS: Warfarin 2 MG Tab PO SCH (14:03)
[2021-02-23] MEDS: traZODone 50 MG Tab PO SCH (19:51)
[2021-02-24] MEDS: Acetaminophen/oxyCODONE 325-5 MG Tab PO PRN ×5 (01:05→20:37)
[2021-02-24] MEDS: traZODone 50 MG Tab PO SCH ×2 (01:52→20:37)
[2021-02-24] MEDS: Gabapentin 300 MG Cap PO SCH ×4 (01:52→20:37)
[2021-02-24] MEDS: Levothyroxine 88 MCG Tab PO SCH (05:13)
[2021-02-24 07:04] LABS: ANION GAP 9.1 mEq/L (7-13); CHLORIDE,CL 103 mmol/L (98-107); SODIUM,NA 142 mmol/L (136-145)
[2021-02-24] MEDS: Formoterol/Mometasone 200-5 MCG 8.8 GM Inhaler IH SCH ×2 (08:33→17:47)
[2021-02-24] MEDS: Allopurinol 100 MG Tab PO SCH (08:59)
[2021-02-24] MEDS: Spironolactone 25 MG Tab PO SCH (09:00)
[2021-02-24] MEDS: Docusate Sodium 100 MG Cap PO SCH (09:01)
[2021-02-24] MEDS: Multivitamin Tab PO SCH (09:01)
[2021-02-24] MEDS: DULoxetine 30 MG Cap PO SCH (09:02)
[2021-02-24] MEDS: Furosemide 40 MG Tab PO SCH (09:02)
[2021-02-24] MEDS: Losartan 25 MG Tab PO SCH (09:04)
[2021-02-24] MEDS: Tiotropium Inhaler 18 MCG Inhalation Powder Cap Kit of 5 INH SCH (09:09)
[2021-02-24] MEDS: Warfarin 2 MG Tab PO SCH (14:40)
--- NOTE | 2021-02-24 19:48 | PCM.PN ---
- General Info Date of Service: 02/24/21 Admission Dx/Problem (Free Text): Admission Diagnosis/Problem Admission Diagnosis/Problem Pneumonia Subjective Update: Bradley is much improved today. They have been working on titrating him down off of his oxygen. He was successfully weaned down to a nasal cannula at 4 to 5 L overnight. Today he is still requiring about 5 L of nasal cannula. He has home oxygen at home, his concentrator will go up to 5 L. He states he feels much more comfortable getting up and going to the bathroom now than he did upon admission. Nursing is noted no further fevers or chills - Patient Data Vitals - Most Recent: Last Vital Signs Temp 97.8 F 02/24/21 17:30 Pulse 93 02/24/21 17:30 Resp 18 02/24/21 17:30 BP 129/81 02/24/21 17:30 Pulse Ox 90 L 02/24/21 17:30 Weight - Most Recent: 238 lb 12.8 oz I&O - Last 24 Hours: Intake & Output 02/24/21 02/24/21 02/24/21 06:59 14:59 22:59 Intake Total 250 660 600 Output Total 400 1625 1100 Balance -150 965 -500 Lab Results Last 24 Hours: Laboratory Results - last 24 hr 02/24/21 02/24/21 02/24/21 Range/Units 06:15 06:15 17:19 WBC 15.0 H (5.0-10.0) 10^3/uL RBC 4.50 L (4.6-6.2) 10^6/uL Hgb 13.7 L (14.0-18.0) g/dL Hct 44.1 (40.0-54.0) % MCV 98.0 (80-100) fL MCH 30.4 (27.0-34.0) pg MCHC 31.1 L (33.0-35.0) g/dL Plt Count 202 (150-450) 10^3/uL Neut % (Auto) 90.5 H (42.2-75.2) % Lymph % (Auto) 6.5 L (20.5-50.1) % [place] % (Auto) 2.9 (2-8) % Eos % (Auto) 0.0 L (1.0-3.0) % Baso % (Auto) 0.1 (0.0-1.0) % Sodium 142 (136-145) mmol/L Potassium 5.1 (3.5-5.1) mmol/L Chloride 103 (98-107) mmol/L Carbon Dioxide 35 H (21-32) mmol/L Anion Gap 9.1 (7-13) mEq/L BUN 31 H (7-18) mg/dL Creatinine 1.17 (0.70-1.30) mg/dL Est Cr Clr Drug Dosing 65.20 mL/min Estimated GFR (MDRD) > 60 BUN/Creatinine Ratio 26.5 (No establ ref range) Glucose 141 H (70-99) mg/dL POC Glucose 101 H (70-99) mg/dL Calcium 9.1 (8.5-10.1) mg/dL Total Bilirubin 1.1 H (0.2-1.0) mg/dL AST 18 (15-37) U/L ALT 22 (16-63) U/L Alkaline Phosphatase 123 H (46-116) U/L Total Protein 6.6 (6.4-8.2) g/dL Albumin 2.8 L (3.4-5.0) g/dL Globulin 3.8 Albumin/Globulin Ratio 0.74 Oniel Results Last 24 Hours: Microbiology 02/22/21 12:36 Aerobic Blood Culture - Preliminary Blood - Arm, Left NO GROWTH AFTER 2 DAYS Anaerobic Blood Culture - Preliminary NO GROWTH AFTER 2 DAYS 02/22/21 12:33 Aerobic Blood Culture - Preliminary Blood - Arm, Right NO GROWTH AFTER 2 DAYS Anaerobic Blood Culture - Preliminary NO GROWTH AFTER 2 DAYS Med Orders - Current: Current Medications Acetaminophen (Acetaminophen 325 Mg Tab) 650 mg PO Q4H PRN PRN Reason: Pain (Mild 1-3)/fever Albuterol/Ipratropium (Albuterol/Ipratropium 3.0-0.5 Mg/3 Ml Neb Soln) 3 ml NEB Q4HRRT PRN PRN Reason: Dyspnea Allopurinol (Allopurinol 100 Mg Tab) 300 mg PO DAILY [facility] Last Admin: 02/24/21 08:59 Dose: 300 mg Documented by: Docusate Sodium (Docusate Sodium 100 Mg Cap) 100 mg PO DAILY [facility] Last Admin: 02/24/21 09:01 Dose: 100 mg Documented by: Duloxetine HCl (Duloxetine 30 Mg Cap) 60 mg PO DAILY [facility] Last Admin: 02/24/21 09:02 Dose: 60 mg Documented by: Furosemide (Furosemide 40 Mg Tab) 40 mg PO DAILY [facility] Last Admin: 02/24/21 09:02 Dose: 40 mg Documented by: Gabapentin (Gabapentin 300 Mg Cap) 300 mg PO TID [facility] Last Admin: 02/24/21 14:39 Dose: 300 mg Documented by: Levothyroxine Sodium (Levothyroxine 88 Mcg Tab) 88 mcg PO ACBREAKFAST [facility] Last Admin: 02/24/21 05:13 Dose: 88 mcg Documented by: Losartan Potassium (Losartan 25 Mg Tab) 25 mg PO DAILY [facility] Last Admin: 02/24/21 09:04 Dose: 25 mg Documented by: Mometasone Furoate/Formoterol Fumar (Formoterol/Mometasone 200-5 Mcg 8.8 Gm Inhaler) 2 puff IH BIDRT [facility] Last Admin: 02/24/21 17:47 Dose: 2 puff Documented by: Multivitamins/Minerals/Vitamin C (Multivitamin Tab) 1 tab PO DAILY [facility] Last Admin: 02/24/21 09:01 Dose: 1 tab Documented by: Ondansetron HCl (Ondansetron 4 Mg Tab.Dis) 4 mg PO Q6H PRN PRN Reason: nausea, able to take PO Oxycodone/Acetaminophen (Acetaminophen/Oxycodone 325-5 Mg Tab) 1 tab PO Q4H PRN PRN Reason: Pain Last Admin: 02/24/21 16:39 Dose: 1 tab Documented by: Polyethylene Glycol (Polyethylene Glycol 3350 Powder 17 Gm Packet) 17 gm PO DAILY PRN PRN Reason: Constipation Spironolactone (Spironolactone 25 Mg Tab) 12.5 mg PO DAILY [facility] Last Admin: 02/24/21 09:00 Dose: 12.5 mg Documented by: Tiotropium [place] (Tiotropium Inhaler 18 Mcg Inhalation Powder Cap Kit Of 5) 18 mcg INH DAILY [facility] Last Admin: 02/24/21 09:09 Dose: 18 mcg Documented by: Trazodone HCl (Trazodone 50 Mg Tab) 50 mg PO BEDTIME [facility] Last Admin: 02/24/21 01:52 Dose: Not Given Documented by: Warfarin Sodium (Warfarin 2 Mg Tab) 3 mg PO MoWeTh@1400 [facility] Warfarin Sodium (Warfarin 2 Mg Tab) 6 mg PO SuTuFrSa@1400 [facility] Last Admin: 02/24/21 14:40 Dose: 6 mg Documented by: Discontinued Medications Albuterol (Albuterol 0.083% 2.5 Mg/3 Ml Neb Soln) 5 mg NEB ONETIME ONE Stop: 02/22/21 13:58 Last Admin: 02/22/21 14:10 Dose: 5 mg Documented by: Albuterol/Ipratropium (Albuterol/Ipratropium 3.0-0.5 Mg/3 Ml Neb Soln) 6 ml NEB ONETIME ONE Stop: 02/22/21 12:24 Last Admin: 02/22/21 12:34 Dose: 6 ml Documented by: Dexamethasone (Dexamethasone 4 Mg/Ml Sdv) 20 mg IVPUSH Q8H [facility] Stop: 02/23/21 22:01 Last Admin: 02/23/21 21:34 Dose: 20 mg Documented by: Fentanyl (Fentanyl 50 Mcg/Hr Transdermal Patch) mcg TOP Q72H [facility] Magnesium Sulfate 2 gm/ Premix 50 mls @ 25 mls/hr IV ONETIME ONE Stop: 02/22/21 14:24 Last Admin: 02/22/21 14:05 Dose: 25 mls/hr Documented by: Levofloxacin/Dextrose 750 mg/ (Premix) 150 mls @ 100 mls/hr IV ONETIME ONE Stop: 02/22/21 15:40 Last Admin: 02/22/21 14:34 Dose: 100 mls/hr Documented by: Lactated Ringer's (Ringers, Lactated) 500 mls @ 999 mls/hr IV .BOLUS ONE Stop: 02/22/21 14:49 Last Admin: 02/22/21 15:15 Dose: 125 mls/hr Documented by: Methylprednisolone Sodium Succinate (Methylprednisolone Sodium Succinate 125 Mg/2 Ml Sdv) 125 mg IVPUSH ONETIME ONE Stop: 02/22/21 12:29 Last Admin: 02/22/21 14:03 Dose: 125 mg Documented by: - Exam Physical Findings Comments:: General: Bradley is a 76-year-old man in no acute distress. He is showing no signs of respiratory distress, no tachypnea or accessory muscle use Oropharynx is clear, mucous membranes are moist Heart: Regular rate and rhythm, 1 out of 6 systolic murmur best heard throughout Lungs: Much improved air movement into both bases, he still has quite a bit of expiratory wheezing bilaterally - Patient Data Lab Results Last 24 hrs: Laboratory Results - last 24 hr 02/24/21 02/24/21 02/24/21 Range/Units 06:15 06:15 17:19 WBC 15.0 H (5.0-10.0) 10^3/uL RBC 4.50 L (4.6-6.2) 10^6/uL Hgb 13.7 L (14.0-18.0) g/dL Hct 44.1 (40.0-54.0) % MCV 98.0 (80-100) fL MCH 30.4 (27.0-34.0) pg MCHC 31.1 L (33.0-35.0) g/dL Plt Count 202 (150-450) 10^3/uL Neut % (Auto) 90.5 H (42.2-75.2) % Lymph % (Auto) 6.5 L (20.5-50.1) % [place] % (Auto) 2.9 (2-8) % Eos % (Auto) 0.0 L (1.0-3.0) % Baso % (Auto) 0.1 (0.0-1.0) % Sodium 142 (136-145) mmol/L Potassium 5.1 (3.5-5.1) mmol/L Chloride 103 (98-107) mmol/L Carbon Dioxide 35 H (21-32) mmol/L Anion Gap 9.1 (7-13) mEq/L BUN 31 H (7-18) mg/dL Creatinine 1.17 (0.70-1.30) mg/dL Est Cr Clr Drug Dosing 65.20 mL/min Estimated GFR (MDRD) > 60 BUN/Creatinine Ratio 26.5 (No establ ref range) Glucose 141 H (70-99) mg/dL POC Glucose 101 H (70-99) mg/dL Calcium 9.1 (8.5-10.1) mg/dL Total Bilirubin 1.1 H (0.2-1.0) mg/dL AST 18 (15-37) U/L ALT 22 (16-63) U/L Alkaline Phosphatase 123 H (46-116) U/L Total Protein 6.6 (6.4-8.2) g/dL Albumin 2.8 L (3.4-5.0) g/dL Globulin 3.8 Albumin/Globulin Ratio 0.74 Result Diagrams: 02/24/21 06:15 02/24/21 06:15 Oniel Results Last 24 hrs: Microbiology 02/22/21 12:36 Aerobic Blood Culture - Preliminary Blood - Arm, Left NO GROWTH AFTER 2 DAYS Anaerobic Blood Culture - Preliminary NO GROWTH AFTER 2 DAYS 02/22/21 12:33 Aerobic Blood Culture - Preliminary Blood - Arm, Right NO GROWTH AFTER 2 DAYS Anaerobic Blood Culture - Preliminary NO GROWTH AFTER 2 DAYS Sepsis Event Note - Evaluation Sepsis Screening Result: Possible Sepsis Risk - Focused Exam Vital Signs: Vital Signs Temp Pulse Pulse Resp BP BP Pulse Ox 02/24/21 17:30 97.8 F 93 18 129/81 90 L 02/24/21 16:35 18 95 02/24/21 15:00 93 L 02/24/21 12:50 91 L 02/24/21 12:30 18 88 L 02/24/21 11:45 94 L 02/24/21 11:39 98.9 F 79 18 130/77 94 L 02/24/21 11:00 98.9 F 18 L 18 130/77 94 L 02/24/21 09:04 137/93 H - Problem List & Annotations (1) COPD exacerbation SNOMED Code(s): 453961436, 312220340 Code(s): J44.1 - CHRONIC OBSTRUCTIVE PULMONARY DISEASE W (ACUTE) EXACERBATION Status: Acute (2) Chronic a-fib SNOMED Code(s): 294608194 Code(s): I48.2 - CHRONIC ATRIAL FIBRILLATION * DO NOT USE * Status: Acute (3) CKD (chronic kidney disease) stage 3, GFR 30-59 ml/min SNOMED Code(s): 472241503 Code(s): N18.30 - CHRONIC KIDNEY DISEASE, STAGE 3 UNSPECIFIED Status: Acute - Problem List Review Problem List Initiated/Reviewed/Updated: Yes - My Orders Last 24 Hours: My Active Orders 02/25/21 14:00 Warfarin [Coumadin] 3 mg PO MoWeTh@1400 02/26/21 05:11 Chest 2V [CR] AM - Plan Plan:: Assessment/Plan: 1. 76-year-old man with acute exacerbation of chronic obstructive pulmonary disease -Continue home nebulizers and inhaled corticosteroids -He is now weaned down to nasal cannula, will continue to wean, anticipate possible discharge home tomorrow on his normal oxygen flow of 3 to 4 L per nasal cannula 2. Chronic atrial fibrillation, currently anticoagulated with Coumadin -Continue home Coumadin, will have pharmacy assist with dosing -Continue metoprolol and other blood pressure medications 3. Chronic kidney disease, stage III -We will keep an eye on his intake and output as well as daily weight 4. VTE prophylaxis: He is already anticoagulated with Coumadin, so does not need any additional mechanical or pharmacological VTE prophylaxis
[2021-02-25] MEDS: Acetaminophen/oxyCODONE 325-5 MG Tab PO PRN ×3 (00:29→12:18)
[2021-02-25] MEDS: Levothyroxine 88 MCG Tab PO SCH (05:18)
--- NOTE | 2021-02-25 07:28 | PCM.PN ---
- General Info Date of Service: 02/23/21 Admission Dx/Problem (Free Text): Admission Diagnosis/Problem Admission Diagnosis/Problem Pneumonia Subjective Update: Bradley is a 76-year-old man admitted yesterday for severe COPD exacerbation. He was on Oxymask last night, with an FiO2 of between 35 and 50%. This morning he states he still feels very short of breath, but a little bit better than yesterday. - Patient Data Vitals - Most Recent: Last Vital Signs Temp 97.4 F 02/25/21 00:00 Pulse 79 02/25/21 00:00 Resp 18 02/25/21 00:00 BP 115/72 02/25/21 00:00 Pulse Ox 91 L 02/25/21 00:00 Weight - Most Recent: 238 lb 12.8 oz I&O - Last 24 Hours: Intake & Output 02/24/21 02/25/21 02/25/21 22:59 06:59 14:59 Intake Total 600 Output Total 1350 1050 Balance -750 -1050 Lab Results Last 24 Hours: Laboratory Results - last 24 hr 02/24/21 Range/Units 17:19 POC Glucose 101 H (70-99) mg/dL Oniel Results Last 24 Hours: Microbiology 02/22/21 12:36 Aerobic Blood Culture - Preliminary Blood - Arm, Left NO GROWTH AFTER 2 DAYS Anaerobic Blood Culture - Preliminary NO GROWTH AFTER 2 DAYS 02/22/21 12:33 Aerobic Blood Culture - Preliminary Blood - Arm, Right NO GROWTH AFTER 2 DAYS Anaerobic Blood Culture - Preliminary NO GROWTH AFTER 2 DAYS Med Orders - Current: Current Medications Acetaminophen (Acetaminophen 325 Mg Tab) 650 mg PO Q4H PRN PRN Reason: Pain (Mild 1-3)/fever Albuterol/Ipratropium (Albuterol/Ipratropium 3.0-0.5 Mg/3 Ml Neb Soln) 3 ml NEB Q4HRRT PRN PRN Reason: Dyspnea Allopurinol (Allopurinol 100 Mg Tab) 300 mg PO DAILY [facility] Last Admin: 02/24/21 08:59 Dose: 300 mg Documented by: Docusate Sodium (Docusate Sodium 100 Mg Cap) 100 mg PO DAILY [facility] Last Admin: 02/24/21 09:01 Dose: 100 mg Documented by: Duloxetine HCl (Duloxetine 30 Mg Cap) 60 mg PO DAILY [facility] Last Admin: 02/24/21 09:02 Dose: 60 mg Documented by: Furosemide (Furosemide 40 Mg Tab) 40 mg PO DAILY [facility] Last Admin: 02/24/21 09:02 Dose: 40 mg Documented by: Gabapentin (Gabapentin 300 Mg Cap) 300 mg PO TID [facility] Last Admin: 02/24/21 20:37 Dose: 300 mg Documented by: Levothyroxine Sodium (Levothyroxine 88 Mcg Tab) 88 mcg PO ACBREAKFAST [facility] Last Admin: 02/25/21 05:18 Dose: 88 mcg Documented by: Losartan Potassium (Losartan 25 Mg Tab) 25 mg PO DAILY [facility] Last Admin: 02/24/21 09:04 Dose: 25 mg Documented by: Mometasone Furoate/Formoterol Fumar (Formoterol/Mometasone 200-5 Mcg 8.8 Gm Inh aler) 2 puff IH BIDRT [facility] Last Admin: 02/24/21 17:47 Dose: 2 puff Documented by: Multivitamins/Minerals/Vitamin C (Multivitamin Tab) 1 tab PO DAILY [facility] Last Admin: 02/24/21 09:01 Dose: 1 tab Documented by: Ondansetron HCl (Ondansetron 4 Mg Tab.Dis) 4 mg PO Q6H PRN PRN Reason: nausea, able to take PO Oxycodone/Acetaminophen (Acetaminophen/Oxycodone 325-5 Mg Tab) 1 tab PO Q4H PRN PRN Reason: Pain Last Admin: 02/25/21 05:18 Dose: 1 tab Documented by: Polyethylene Glycol (Polyethylene Glycol 3350 Powder 17 Gm Packet) 17 gm PO DAILY PRN PRN Reason: Constipation Last Admin: 02/24/21 20:37 Dose: 17 gm Documented by: Spironolactone (Spironolactone 25 Mg Tab) 12.5 mg PO DAILY [facility] Last Admin: 02/24/21 09:00 Dose: 12.5 mg Documented by: Tiotropium [place] (Tiotropium Inhaler 18 Mcg Inhalation Powder Cap Kit Of 5) 18 mcg INH DAILY [facility] Last Admin: 02/24/21 09:09 Dose: 18 mcg Documented by: Trazodone HCl (Trazodone 50 Mg Tab) 50 mg PO BEDTIME [facility] Last Admin: 02/24/21 20:37 Dose: 50 mg Documented by: Warfarin Sodium (Warfarin 2 Mg Tab) 3 mg PO MoWeTh@1400 [facility] Warfarin Sodium (Warfarin 2 Mg Tab) 6 mg PO SuTuFrSa@1400 [facility] Last Admin: 02/24/21 14:40 Dose: 6 mg Documented by: Discontinued Medications Albuterol (Albuterol 0.083% 2.5 Mg/3 Ml Neb Soln) 5 mg NEB ONETIME ONE Stop: 02/22/21 13:58 Last Admin: 02/22/21 14:10 Dose: 5 mg Documented by: Albuterol/Ipratropium (Albuterol/Ipratropium 3.0-0.5 Mg/3 Ml Neb Soln) 6 ml NEB ONETIME ONE Stop: 02/22/21 12:24 Last Admin: 02/22/21 12:34 Dose: 6 ml Documented by: Dexamethasone (Dexamethasone 4 Mg/Ml Sdv) 20 mg IVPUSH Q8H [facility] Stop: 02/23/21 22:01 Last Admin: 02/23/21 21:34 Dose: 20 mg Documented by: Fentanyl (Fentanyl 50 Mcg/Hr Transdermal Patch) mcg TOP Q72H [facility] Magnesium Sulfate 2 gm/ Premix 50 mls @ 25 mls/hr IV ONETIME ONE Stop: 02/22/21 14:24 Last Admin: 02/22/21 14:05 Dose: 25 mls/hr Documented by: Levofloxacin/Dextrose 750 mg/ (Premix) 150 mls @ 100 mls/hr IV ONETIME ONE Stop: 02/22/21 15:40 Last Admin: 02/22/21 14:34 Dose: 100 mls/hr Documented by: Lactated Ringer's (Ringers, Lactated) 500 mls @ 999 mls/hr IV .BOLUS ONE Stop: 02/22/21 14:49 Last Admin: 02/22/21 15:15 Dose: 125 mls/hr Documented by: Methylprednisolone Sodium Succinate (Methylprednisolone Sodium Succinate 125 Mg/2 Ml Sdv) 125 mg IVPUSH ONETIME ONE Stop: 02/22/21 12:29 Last Admin: 02/22/21 14:03 Dose: 125 mg Documented by: - Exam Physical Findings Comments:: General: Bradley is a 76-year-old man in no acute distress Oropharynx is clear, mucous membranes are moist Neck: Supple, no lymphadenopathy Lungs: Lung exam is a little bit better than yesterday, but he still has significant wheezing bilaterally with some coarse breath sounds centrally. No areas of consolidation heard. - Patient Data Lab Results Last 24 hrs: Laboratory Results - last 24 hr 02/24/21 Range/Units 17:19 POC Glucose 101 H (70-99) mg/dL Result Diagrams: 02/24/21 06:15 02/24/21 06:15 Oniel Results Last 24 hrs: Microbiology 02/22/21 12:36 Aerobic Blood Culture - Preliminary Blood - Arm, Left NO GROWTH AFTER 2 DAYS Anaerobic Blood Culture - Preliminary NO GROWTH AFTER 2 DAYS 02/22/21 12:33 Aerobic Blood Culture - Preliminary Blood - Arm, Right NO GROWTH AFTER 2 DAYS Anaerobic Blood Culture - Preliminary NO GROWTH AFTER 2 DAYS Sepsis Event Note - Evaluation Sepsis Screening Result: Possible Sepsis Risk - Focused Exam Vital Signs: Vital Signs Temp Pulse Resp BP Pulse Ox 02/25/21 00:00 97.4 F 79 18 115/72 91 L 02/24/21 21:00 98.0 F 83 18 138/85 92 L - Problem List & Annotations (1) COPD exacerbation SNOMED Code(s): 523589942, 348567665 Code(s): J44.1 - CHRONIC OBSTRUCTIVE PULMONARY DISEASE W (ACUTE) EXACERBATION Status: Acute Current Visit: Yes (2) Chronic a-fib SNOMED Code(s): 058829275 Code(s): I48.2 - CHRONIC ATRIAL FIBRILLATION * DO NOT USE * Status: Acute Current Visit: Yes (3) CKD (chronic kidney disease) stage 3, GFR 30-59 ml/min SNOMED Code(s): 760731117 Code(s): N18.30 - CHRONIC KIDNEY DISEASE, STAGE 3 UNSPECIFIED Status: Acute Current Visit: No - Problem List Review Problem List Initiated/Reviewed/Updated: Yes - My Orders Last 24 Hours: My Active Orders 02/25/21 14:00 Warfarin [Coumadin] 3 mg PO MoWeTh@1400 02/26/21 05:11 Chest 2V [CR] AM - Plan Plan:: Assessment/Plan: 1. 76-year-old man with acute exacerbation of chronic obstructive pulmonary disease -Continue home nebulizers and inhaled corticosteroids -He is completing the last dose of IV dexamethasone this morning, will most likely start him on an oral prednisone taper tomorrow 2. Chronic atrial fibrillation, currently anticoagulated with Coumadin -Continue home Coumadin, will have pharmacy assist with dosing -Continue metoprolol and other blood pressure medications 3. Chronic kidney disease, stage III -We will keep an eye on his intake and output as well as daily weight 4. VTE prophylaxis: He is already anticoagulated with Coumadin, so does not nee d any additional mechanical or pharmacological VTE prophylaxis
[2021-02-25] MEDS ORDERED: predniSONE 10 MG Tab PO ONE (07:45)
--- NOTE | 2021-02-25 08:11 | PCM.PN ---
- Patient Data Vitals - Most Recent: Last Vital Signs Temp 98.3 F 02/25/21 07:55 Pulse 93 02/25/21 07:55 Resp 22 H 02/25/21 07:55 BP 144/104 H 02/25/21 07:55 Pulse Ox 95 02/25/21 07:55 Weight - Most Recent: 238 lb 12.8 oz I&O - Last 24 Hours: Intake & Output 02/24/21 02/25/21 02/25/21 22:59 06:59 14:59 Intake Total 600 Output Total 1350 1050 Balance -750 -1050 Lab Results Last 24 Hours: Laboratory Results - last 24 hr 02/24/21 Range/Units 17:19 POC Glucose 101 H (70-99) mg/dL Oniel Results Last 24 Hours: Microbiology 02/22/21 12:36 Aerobic Blood Culture - Preliminary Blood - Arm, Left NO GROWTH AFTER 2 DAYS Anaerobic Blood Culture - Preliminary NO GROWTH AFTER 2 DAYS 02/22/21 12:33 Aerobic Blood Culture - Preliminary Blood - Arm, Right NO GROWTH AFTER 2 DAYS Anaerobic Blood Culture - Preliminary NO GROWTH AFTER 2 DAYS Med Orders - Current: Current Medications Acetaminophen (Acetaminophen 325 Mg Tab) 650 mg PO Q4H PRN PRN Reason: Pain (Mild 1-3)/fever Albuterol/Ipratropium (Albuterol/Ipratropium 3.0-0.5 Mg/3 Ml Neb Soln) 3 ml NEB Q4HRRT PRN PRN Reason: Dyspnea Allopurinol (Allopurinol 100 Mg Tab) 300 mg PO DAILY [facility] Last Admin: 02/24/21 08:59 Dose: 300 mg Documented by: Docusate Sodium (Docusate Sodium 100 Mg Cap) 100 mg PO DAILY [facility] Last Admin: 02/24/21 09:01 Dose: 100 mg Documented by: Duloxetine HCl (Duloxetine 30 Mg Cap) 60 mg PO DAILY [facility] Last Admin: 02/24/21 09:02 Dose: 60 mg Documented by: Furosemide (Furosemide 40 Mg Tab) 40 mg PO DAILY [facility] Last Admin: 02/24/21 09:02 Dose: 40 mg Documented by: Gabapentin (Gabapentin 300 Mg Cap) 300 mg PO TID [facility] Last Admin: 02/24/21 20:37 Dose: 300 mg Documented by: Levothyroxine Sodium (Levothyroxine 88 Mcg Tab) 88 mcg PO ACBREAKFAST [facility] Last Admin: 02/25/21 05:18 Dose: 88 mcg Documented by: Losartan Potassium (Losartan 25 Mg Tab) 25 mg PO DAILY [facility] Last Admin: 02/24/21 09:04 Dose: 25 mg Documented by: Mometasone Furoate/Formoterol Fumar (Formoterol/Mometasone 200-5 Mcg 8.8 Gm Inhaler) 2 puff IH BIDRT [facility] Last Admin: 02/24/21 17:47 Dose: 2 puff Documented by: Multivitamins/Minerals/Vitamin C (Multivitamin Tab) 1 tab PO DAILY [facility] Last Admin: 02/24/21 09:01 Dose: 1 tab Documented by: Ondansetron HCl (Ondansetron 4 Mg Tab.Dis) 4 mg PO Q6H PRN PRN Reason: nausea, able to take PO Oxycodone/Acetaminophen (Acetaminophen/Oxycodone 325-5 Mg Tab) 1 tab PO Q4H PRN PRN Reason: Pain Last Admin: 02/25/21 05:18 Dose: 1 tab Documented by: Polyethylene Glycol (Polyethylene Glycol 3350 Powder 17 Gm Packet) 17 gm PO DAILY PRN PRN Reason: Constipation Last Admin: 02/24/21 20:37 Dose: 17 gm Documented by: Spironolactone (Spironolactone 25 Mg Tab) 12.5 mg PO DAILY [facility] Last Admin: 02/24/21 09:00 Dose: 12.5 mg Documented by: Tiotropium [place] (Tiotropium Inhaler 18 Mcg Inhalation Powder Cap Kit Of 5) 18 mcg INH DAILY [facility] Last Admin: 02/24/21 09:09 Dose: 18 mcg Documented by: Trazodone HCl (Trazodone 50 Mg Tab) 50 mg PO BEDTIME [facility] Last Admin: 02/24/21 20:37 Dose: 50 mg Documented by: Warfarin Sodium (Warfarin 2 Mg Tab) 3 mg PO MoWeTh@1400 [facility] Warfarin Sodium (Warfarin 2 Mg Tab) 6 mg PO SuTuFrSa@1400 [facility] Last Admin: 02/24/21 14:40 Dose: 6 mg Documented by: Discontinued Medications Albuterol (Albuterol 0.083% 2.5 Mg/3 Ml Neb Soln) 5 mg NEB ONETIME ONE Stop: 02/22/21 13:58 Last Admin: 02/22/21 14:10 Dose: 5 mg Documented by: Albuterol/Ipratropium (Albuterol/Ipratropium 3.0-0.5 Mg/3 Ml Neb Soln) 6 ml NEB ONETIME ONE Stop: 02/22/21 12:24 Last Admin: 02/22/21 12:34 Dose: 6 ml Documented by: Dexamethasone (Dexamethasone 4 Mg/Ml Sdv) 20 mg IVPUSH Q8H [facility] Stop: 02/23/21 22:01 Last Admin: 02/23/21 21:34 Dose: 20 mg Documented by: Fentanyl (Fentanyl 50 Mcg/Hr Transdermal Patch) mcg TOP Q72H [facility] Magnesium Sulfate 2 gm/ Premix 50 mls @ 25 mls/hr IV ONETIME ONE Stop: 02/22/21 14:24 Last Admin: 02/22/21 14:05 Dose: 25 mls/hr Documented by: Levofloxacin/Dextrose 750 mg/ (Premix) 150 mls @ 100 mls/hr IV ONETIME ONE Stop: 02/22/21 15:40 Last Admin: 02/22/21 14:34 Dose: 100 mls/hr Documented by: Lactated Ringer's (Ringers, Lactated) 500 mls @ 999 mls/hr IV .BOLUS ONE Stop: 02/22/21 14:49 Last Admin: 02/22/21 15:15 Dose: 125 mls/hr Documented by: Methylprednisolone Sodium Succinate (Methylprednisolone Sodium Succinate 125 Mg/2 Ml Sdv) 125 mg IVPUSH ONETIME ONE Stop: 02/22/21 12:29 Last Admin: 02/22/21 14:03 Dose: 125 mg Documented by: Prednisone (Prednisone 10 Mg Tab) 50 mg PO ONETIME ONE Stop: 02/25/21 07:46 - Patient Data Lab Results Last 24 hrs: Laboratory Results - last 24 hr 02/24/21 Range/Units 17:19 POC Glucose 101 H (70-99) mg/dL Result Diagrams: 02/24/21 06:15 02/24/21 06:15 Oniel Results Last 24 hrs: Microbiology 02/22/21 12:36 Aerobic Blood Culture - Preliminary Blood - Arm, Left NO GROWTH AFTER 2 DAYS Anaerobic Blood Culture - Preliminary NO GROWTH AFTER 2 DAYS 02/22/21 12:33 Aerobic Blood Culture - Preliminary Blood - Arm, Right NO GROWTH AFTER 2 DAYS Anaerobic Blood Culture - Preliminary NO GROWTH AFTER 2 DAYS Sepsis Event Note - Evaluation Sepsis Screening Result: Possible Sepsis Risk - Focused Exam Vital Signs: Vital Signs Temp Pulse Pulse Resp BP Pulse Ox 02/25/21 07:55 98.3 F 93 22 H 144/104 H 95 02/25/21 00:00 97.4 F 79 18 115/72 91 L 02/24/21 21:00 98.0 F 83 18 138/85 92 L - Problem List & Annotations (1) COPD exacerbation SNOMED Code(s): 242827259, 396216348 Code(s): J44.1 - CHRONIC OBSTRUCTIVE PULMONARY DISEASE W (ACUTE) EXACERBATION Status: Acute Current Visit: Yes (2) Chronic a-fib SNOMED Code(s): 650608854 Code(s): I48.2 - CHRONIC ATRIAL FIBRILLATION * DO NOT USE * Status: Acute Current Visit: Yes (3) CKD (chronic kidney disease) stage 3, GFR 30-59 ml/min SNOMED Code(s): 782507993 Code(s): N18.30 - CHRONIC KIDNEY DISEASE, STAGE 3 UNSPECIFIED Status: Acute Current Visit: No - My Orders Last 24 Hours: My Active Orders 02/25/21 08:05 Chest 2V [CR] Routine 02/25/21 14:00 Warfarin [Coumadin] 3 mg PO MoWeTh@1400 02/26/21 05:11 Chest 2V [CR] AM - Plan Plan:: Assessment/Plan: 1. 76-year-old man with acute exacerbation of chronic obstructive pulmonary disease -Continue home nebulizers and inhaled corticosteroids -He is completing the last dose of IV dexamethasone this morning, will most likely start him on an oral prednisone taper tomorrow 2. Chronic atrial fibrillation, currently anticoagulated with Coumadin -Continue home Coumadin, will have pharmacy assist with dosing -Continue metoprolol and other blood pressure medications 3. Chronic kidney disease, stage III -We will keep an eye on his intake and output as well as daily weight 4. VTE prophylaxis: He is already anticoagulated with Coumadin, so does not need any additional mechanical or pharmacological VTE prophylaxis
[2021-02-25] MEDS: Furosemide 40 MG Tab PO SCH (08:37)
[2021-02-25] MEDS: Spironolactone 25 MG Tab PO SCH (08:37)
[2021-02-25] MEDS: Allopurinol 100 MG Tab PO SCH (08:38)
[2021-02-25] MEDS: DULoxetine 30 MG Cap PO SCH (08:38)
[2021-02-25] MEDS: Multivitamin Tab PO SCH (08:38)
[2021-02-25] MEDS: Gabapentin 300 MG Cap PO SCH ×2 (08:38→15:50)
[2021-02-25] MEDS: Losartan 25 MG Tab PO SCH (08:38)
[2021-02-25] MEDS: Docusate Sodium 100 MG Cap PO SCH (08:39)
[2021-02-25] MEDS: Formoterol/Mometasone 200-5 MCG 8.8 GM Inhaler IH SCH ×2 (08:43→18:24)
[2021-02-25] MEDS: Tiotropium Inhaler 18 MCG Inhalation Powder Cap Kit of 5 INH SCH (08:44)
[2021-02-25] MEDS ORDERED: Warfarin 2 MG Tab PO SCH (14:00)
--- NOTE | 2021-02-25 14:14 | CR ---
PROCEDURE INFORMATION: Exam: XR Chest Exam date and time: 02/25/2021 8:19 AM Age: 76 years old Clinical indication: Shortness of breath; Additional info: To follow copd TECHNIQUE: Imaging protocol: XR of the chest. Views: 2 views. COMPARISON: CR Chest 1V Frontal 02/22/2021 1:16 PM FINDINGS: Lungs: Mild improvement right lower lobe consolidation. Mild ground-glass left lower lobe infiltrate. Pleural spaces: Small right pleural effusion. No pneumothorax. Heart/Mediastinum: Stable cardiomegaly. Bones/joints: Stable total left shoulder arthroplasty. No acute findings. IMPRESSION: 1. Improving right basilar pneumonitis. 2. Mild left lower lobe pneumonitis. 3. Right small pleural effusion. 4. Stable cardiomegaly
--- NOTE | 2021-02-25 15:50 | PCM.DCSUM1 ---
Discharge Summary - Hospital Course Free Text/Narrative:: Bradley is a 76-year-old man who was admitted in mild respiratory distress with an acute COPD exacerbation. He was initially admitted on BiPAP, and on hospital day #1 was able to be weaned down to OxyMask with FiO2 of between 35 and 50%. Hospital days #2 and 3, he was weaned down to oxygen via nasal cannula, and on day of discharge, was able to be on 2 to 3 L per nasal cannula, which is his typical setting at home with his home concentrator. Chest x-ray on day of discharge did not show any further signs of infiltrate. - Discharge Data Discharge Date: 02/25/21 Discharge Disposition: Home, Self-Care 01 Condition: Good - Referral to Home Health Date of Face to Face Encounter: 02/25/21 Primary Care Physician: PCP None - Discharge Diagnosis/Problem(s) (1) COPD exacerbation SNOMED Code(s): 984884450, [id number] ICD Code: J44.1 - CHRONIC OBSTRUCTIVE PULMONARY DISEASE W (ACUTE) EXACERBATION Status: Acute (2) Chronic a-fib SNOMED Code(s): 817266500 ICD Code: I48.2 - CHRONIC ATRIAL FIBRILLATION * DO NOT USE * Status: Acute (3) CKD (chronic kidney disease) stage 3, GFR 30-59 ml/min SNOMED Code(s): 460145452 ICD Code: N18.30 - CHRONIC KIDNEY DISEASE, STAGE 3 UNSPECIFIED Status: Acute - Discharge Plan *PRESCRIPTION DRUG MONITORING PROGRAM REVIEWED*: Not Applicable *COPY OF PRESCRIPTION DRUG MONITORING REPORT IN PATIENT GENE: Not Applicable Prescriptions/Med Rec: Cefdinir [Omnicef] 300 mg PO BID #14 cap predniSONE [Prednisone] 5 mg PO ASDIRECTED #45 tablet Home Medications: Home Meds Acetaminophen [Tylenol] 2 tab PO Q4H PRN 10/16/16 [History] Albuterol Sulfate [Proventil Hfa] 2 inh INH Q4H PRN 10/16/16 [History] Budesonide/Formoterol Fumarate [Symbicort 160-4.5 Mcg Inhaler] 2 inh INH BID 10/16/16 [History] Docusate Sodium [Colace] 100 mg PO DAILY PRN 10/16/16 [History] Gabapentin [Neurontin] 300 mg PO TID 10/16/16 [History] Garlic 1 tab PO DAILY 10/16/16 [History] Multivitamin [Multi-Vitamin Daily] 1 tab PO DAILY 10/16/16 [History] Polyethylene Glycol 3350 [MiraLAX] 17 gm PO ASDIRECTED PRN 10/16/16 [History] Spironolactone [Aldactone] 12.5 mg PO DAILY 10/16/16 [History] Tiotropium [Spiriva HandiHaler] 1 inh INH DAILY 10/16/16 [History] DULoxetine [Cymbalta] 60 mg PO DAILY 06/12/19 [History] oxyCODONE HCl/Acetaminophen [Endocet 5-325 Tablet] 1 tab PO Q4H PRN 06/12/19 [History] traZODone HCl [Trazodone HCl] 50 mg PO DAILY 06/12/19 [History] Warfarin [Coumadin] 3 mg PO .MON,WED,THURS 04/29/20 [History] Warfarin [Coumadin] 6 mg PO .SUN,TU,THU,SAT 04/29/20 [History] Levothyroxine [Synthroid] 88 mcg PO ACBREAKFAST 05/18/20 [History] fentaNYL [Duragesic] 50 patch TOP Q72H 05/18/20 [History] Allopurinol [Zyloprim] 150 mg PO DAILY 02/22/21 [History] Diclofenac Sodium [Voltaren 1% Gel] 1 g TOP BID PRN 02/22/21 [History] Furosemide 80 mg PO DAILY 02/22/21 [History] Sennosides [Ex-Lax Maximum Strength] 25 mg PO DAILY PRN 02/22/21 [History] Cefdinir [Omnicef] 300 mg PO BID #14 cap 02/25/21 [Rx] predniSONE [Prednisone] 5 mg PO ASDIRECTED #45 tablet 02/25/21 [Rx] Patient Handouts: Chronic Obstructive Pulmonary Disease Exacerbation, [id number] Referrals: Kayy Monk NP [Ordering Only Provider] - - Discharge Summary/Plan Comment DC Time >30 min.: No Total # of Minutes for Discharge Time: 15 minutes Discharge Summary/Plan Comment: Discharge diagnoses: 1. 76-year-old man with acute exacerbation of chronic obstructive pulmonary disease 2. Chronic obstructive pulmonary disease, oxygen dependent 3. Chronic kidney disease Discharge plan: 1. He will be discharged home on a 10-day prednisone taper, as well as doxycycline, 100 mg twice daily for 7 days. 2. He will follow-up with his primary care provider as soon as possible. - General Info Date of Service: 02/25/21 Admission Dx/Problem (Free Text: Admission Diagnosis/Problem Admission Diagnosis/Problem Pneumonia Subjective Update: See above summary - Patient Data Vitals - Most Recent: Last Vital Signs Temp 97.5 F 02/25/21 11:18 Pulse 98 02/25/21 11:18 Resp 20 02/25/21 11:18 BP 116/75 02/25/21 11:18 Pulse Ox 91 L 02/25/21 11:18 Weight - Most Recent: 238 lb 12.8 oz I&O - Last 24 hours: Intake & Output 02/25/21 02/25/21 02/25/21 06:59 14:59 22:59 Intake Total 120 Output Total 1050 400 Balance -1050 -280 Lab Results - Last 24 hrs: Laboratory Results - last 24 hr 02/24/21 Range/Units 17:19 POC Glucose 101 H (70-99) mg/dL G[facility]Y Results - Last 24 hrs: Microbiology 02/22/21 12:36 Aerobic Blood Culture - Preliminary Blood - Arm, Left NO GROWTH AFTER 3 DAYS Anaerobic Blood Culture - Preliminary NO GROWTH AFTER 3 DAYS 02/22/21 12:33 Aerobic Blood Culture - Preliminary Blood - Arm, Right NO GROWTH AFTER 3 DAYS Anaerobic Blood Culture - Preliminary NO GROWTH AFTER 3 DAYS Med Orders - Current: Current Medications Acetaminophen (Acetaminophen 325 Mg Tab) 650 mg PO Q4H PRN PRN Reason: Pain (Mild 1-3)/fever Albuterol/Ipratropium (Albuterol/Ipratropium 3.0-0.5 Mg/3 Ml Neb Soln) 3 ml NEB Q4HRRT PRN PRN Reason: Dyspnea Allopurinol (Allopurinol 100 Mg Tab) 300 mg PO DAILY [facility] Last Admin: 02/25/21 08:38 Dose: 300 mg Documented by: Docusate Sodium (Docusate Sodium 100 Mg Cap) 100 mg PO DAILY [facility] Last Admin: 02/25/21 08:39 Dose: 100 mg Documented by: Duloxetine HCl (Duloxetine 30 Mg Cap) 60 mg PO DAILY [facility] Last Admin: 02/25/21 08:38 Dose: 60 mg Documented by: Furosemide (Furosemide 40 Mg Tab) 40 mg PO DAILY [facility] Last Admin: 02/25/21 08:37 Dose: 40 mg Documented by: Gabapentin (Gabapentin 300 Mg Cap) 300 mg PO TID [facility] Last Admin: 02/25/21 08:38 Dose: 300 mg Documented by: Levothyroxine Sodium (Levothyroxine 88 Mcg Tab) 88 mcg PO ACBREAKFAST [facility] Last Admin: 02/25/21 05:18 Dose: 88 mcg Documented by: Losartan Potassium (Losartan 25 Mg Tab) 25 mg PO DAILY [facility] Last Admin: 02/25/21 08:38 Dose: 25 mg Documented by: Mometasone Furoate/Formoterol Fumar (Formoterol/Mometasone 200-5 Mcg 8.8 Gm Inhaler) 2 puff IH BIDRT [facility] Last Admin: 02/25/21 08:43 Dose: 2 puff Documented by: Multivitamins/Minerals/Vitamin C (Multivitamin Tab) 1 tab PO DAILY [facility] Last Admin: 02/25/21 08:38 Dose: 1 tab Documented by: Ondansetron HCl (Ondansetron 4 Mg Tab.Dis) 4 mg PO Q6H PRN PRN Reason: nausea, able to take PO Oxycodone/Acetaminophen (Acetaminophen/Oxycodone 325-5 Mg Tab) 1 tab PO Q4H PRN PRN Reason: Pain Last Admin: 02/25/21 12:18 Dose: 1 tab Documented by: Polyethylene Glycol (Polyethylene Glycol 3350 Powder 17 Gm Packet) 17 gm PO DAILY PRN PRN Reason: Constipation Last Admin: 02/24/21 20:37 Dose: 17 gm Documented by: Spironolactone (Spironolactone 25 Mg Tab) 12.5 mg PO DAILY [facility] Last Admin: 02/25/21 08:37 Dose: 12.5 mg Documented by: Tiotropium [place] (Tiotropium Inhaler 18 Mcg Inhalation Powder Cap Kit Of 5) 18 mcg INH DAILY [facility] Last Admin: 02/25/21 08:44 Dose: 18 mcg Documented by: Trazodone HCl (Trazodone 50 Mg Tab) 50 mg PO BEDTIME [facility] Last Admin: 02/24/21 20:37 Dose: 50 mg Documented by: Warfarin Sodium (Warfarin 2 Mg Tab) 3 mg PO MoWeTh@1400 [facility] Warfarin Sodium (Warfarin 2 Mg Tab) 6 mg PO SuTuFrSa@1400 [facility] Last Admin: 02/24/21 14:40 Dose: 6 mg Documented by: Discontinued Medications Albuterol (Albuterol 0.083% 2.5 Mg/3 Ml Neb Soln) 5 mg NEB ONETIME ONE Stop: 02/22/21 13:58 Last Admin: 02/22/21 14:10 Dose: 5 mg Documented by: Albuterol/Ipratropium (Albuterol/Ipratropium 3.0-0.5 Mg/3 Ml Neb Soln) 6 ml NEB ONETIME ONE Stop: 02/22/21 12:24 Last Admin: 02/22/21 12:34 Dose: 6 ml Documented by: Dexamethasone (Dexamethasone 4 Mg/Ml Sdv) 20 mg IVPUSH Q8H [facility] Stop: 02/23/21 22:01 Last Admin: 02/23/21 21:34 Dose: 20 mg Documented by: Fentanyl (Fentanyl 50 Mcg/Hr Transdermal Patch) mcg TOP Q72H [facility] Magnesium Sulfate 2 gm/ Premix 50 mls @ 25 mls/hr IV ONETIME ONE Stop: 02/22/21 14:24 Last Admin: 02/22/21 14:05 Dose: 25 mls/hr Documented by: Levofloxacin/Dextrose 750 mg/ (Premix) 150 mls @ 100 mls/hr IV ONETIME ONE Stop: 02/22/21 15:40 Last Admin: 02/22/21 14:34 Dose: 100 mls/hr Documented by: Lactated Ringer's (Ringers, Lactated) 500 mls @ 999 mls/hr IV .BOLUS ONE Stop: 02/22/21 14:49 Last Admin: 02/22/21 15:15 Dose: 125 mls/hr Documented by: Methylprednisolone Sodium Succinate (Methylprednisolone Sodium Succinate 125 Mg/2 Ml Sdv) 125 mg IVPUSH ONETIME ONE Stop: 02/22/21 12:29 Last Admin: 02/22/21 14:03 Dose: 125 mg Documented by: Prednisone (Prednisone 10 Mg Tab) 50 mg PO ONETIME ONE Stop: 02/25/21 07:46 Last Admin: 02/25/21 08:37 Dose: 50 mg Documented by: - Exam Physical Findings Comments:: Discharge exam: Bradley is a pleasant 76-year-old man in no acute distress Oropharynx is clear, mucous membranes are moist Neck: Supple, no lymphadenopathy Lungs: Fairly clear to auscultation throughout, expiratory wheezing has ceased.
[2021-02-25 16:47] VITALS: BP 137/97; PULSE 100
== END 2021-02-25 18:55 | disposition home or self-care (01) | DRG 191 ==
LOC: DL.ED 12:29 → DL.MS 14:25
PROVIDERS: ADMIT Family Medicine; ATTEND Family Medicine
DX: J18.9 Pneumonia, unspecified organism (principal); I48.91 Unspecified atrial fibrillation; J44.1 Chronic obstructive pulmonary disease with (acute) exacerbation; I48.20 Chronic atrial fibrillation, unspecified; I13.0 Hypertensive heart and chronic kidney disease with heart failure and stage 1 through stage 4 chronic kidney disease, or unspecified chronic kidney disease; Z86.718 Personal history of other venous thrombosis and embolism; Z86.711 Personal history of pulmonary embolism; J44.0 Chronic obstructive pulmonary disease with (acute) lower respiratory infection; N18.30 Chronic kidney disease, stage 3 unspecified; I50.9 Heart failure, unspecified; I25.2 Old myocardial infarction; G47.30 Sleep apnea, unspecified; K59.09 Other constipation; M54.9 Dorsalgia, unspecified; M19.90 Unspecified osteoarthritis, unspecified site; D63.8 Anemia in other chronic diseases classified elsewhere; M54.50 Low back pain, unspecified; G89.29 Other chronic pain; M10.9 Gout, unspecified; Z79.51 Long term (current) use of inhaled steroids; E03.9 Hypothyroidism, unspecified; D63.1 Anemia in chronic kidney disease; Z90.89 Acquired absence of other organs; Z79.899 Other long term (current) drug therapy; Z79.890 Hormone replacement therapy; Z79.52 Long term (current) use of systemic steroids; Z79.01 Long term (current) use of anticoagulants; Z88.1 Allergy status to other antibiotic agents; Z98.49 Cataract extraction status, unspecified eye; Z96.641 Presence of right artificial hip joint; Z96.611 Presence of right artificial shoulder joint; Z96.612 Presence of left artificial shoulder joint; Z20.822 Contact with and (suspected) exposure to COVID-19
CPT/HCPCS: 36415; 71045; 71046; 80053; 81001; 82947; 83605; 83735; 83880; 84484; 85025; 85610; 86140; 87040; 90662; 93005; 94640; 96365; 96375; 99285-25; A9270-GY; G0008; J1100; J1956; J2930; J3475; J7120; J7512; J7613-GY; J7620-GY; U0002

== ENCOUNTER 2021-07-25 05:50 | Day surgery (SDC) | payer MEDICARE, OTHER ==
[2021-07-25] MEDS ORDERED: fentaNYL 100 MCG/2 ML SDV IV ONE ×4 (05:51→07:24)
[2021-07-25] MEDS ORDERED: Midazolam 1 MG/ML 2 ML SDV IV ONE ×4 (05:51→07:28)
[2021-07-25] MEDS ORDERED: fentaNYL 100 MCG/2 ML SDV ONE (06:10)
[2021-07-25] MEDS ORDERED: Midazolam 1 MG/ML 2 ML SDV ONE (06:10)
[2021-07-25] MEDS ORDERED: Dextrose 5%-0.45% NaCl 1,000 ML IV SCH (06:30)
[2021-07-25] MEDS ORDERED: Sodium Chloride 0.9% 10 ML Syringe FLUSH PRN (06:30)
[2021-07-25] MEDS ORDERED: Sodium Chloride 0.9% 10 ML Syringe FLUSH SCH (09:00)
[2021-07-25 13:07] VITALS: BP 101/49; PULSE 72
== END 2021-07-25 09:40 | disposition home or self-care (01) ==
LOC: DL.ENDO 05:50
PROVIDERS: ATTEND Internal Medicine Gastroenterology
DX: Z12.11 Encounter for screening for malignant neoplasm of colon (principal); K57.30 Diverticulosis of large intestine without perforation or abscess without bleeding; J44.9 Chronic obstructive pulmonary disease, unspecified; I48.91 Unspecified atrial fibrillation; M19.90 Unspecified osteoarthritis, unspecified site; G47.33 Obstructive sleep apnea (adult) (pediatric); G47.00 Insomnia, unspecified; F11.20 Opioid dependence, uncomplicated; D75.1 Secondary polycythemia; M54.50 Low back pain, unspecified; I72.3 Aneurysm of iliac artery; Z90.49 Acquired absence of other specified parts of digestive tract; Z90.89 Acquired absence of other organs; Z86.718 Personal history of other venous thrombosis and embolism; Z86.711 Personal history of pulmonary embolism; Z86.010 Personal history of colon polyps
CPT/HCPCS: J2250; J3010; J7042

== ENCOUNTER 2022-04-02 14:33 | Inpatient (IN) | payer MEDICARE, OTHER ==
[2022-04-02] MEDS ORDERED: Albuterol 0.083% 2.5 MG/3 ML Neb Soln NEB ONE ×2 (15:25→16:40)
[2022-04-02] MEDS ORDERED: Magnesium Sulfate/Water 2 GM in Premix Bag 1 BAG IV ONE (15:26)
[2022-04-02] MEDS: Sodium Chloride 0.9% 10 ML Syringe FLUSH PRN (15:35)
[2022-04-02 16:09] LABS: ANION GAP 11.5 mEq/L (7-13)
[2022-04-02 16:29] LABS: CORONAVIRUS COVID-19 NAA NEGATIVE (NEGATIVE)
[2022-04-02] MEDS ORDERED: methylPREDNISolone Sodium Succinate 125 MG/2 ML SDV IVPUSH ONE (16:41)
[2022-04-02] MEDS ORDERED: Cefuroxime 250 MG Tab PO ONE (17:33)
[2022-04-02] MEDS ORDERED: Acetaminophen/HYDROcodone 325-10 MG Tab PO ONE (18:01)
[2022-04-02] MEDS ORDERED: HYDROmorphone 0.5 MG/0.5 ML Syringe IVPUSH PRN (19:29)
[2022-04-02] MEDS ORDERED: Bisacodyl 5 MG Tab PO PRN (19:29)
[2022-04-02] MEDS ORDERED: Polyethylene Glycol 3350 Powder 17 GM Packet PO PRN (19:29)
[2022-04-02] MEDS ORDERED: Magnesium Hydroxide 400 MG/5 ML Susp 30 ML Cup PO PRN (19:29)
[2022-04-02] MEDS ORDERED: Albuterol/Ipratropium 3.0-0.5 MG/3 ML Neb Soln NEB PRN (19:29)
[2022-04-02] MEDS ORDERED: Temazepam 15 MG Cap PO PRN (19:29)
[2022-04-02] MEDS ORDERED: Acetaminophen 325 MG Tab PO PRN (19:29)
[2022-04-02] MEDS ORDERED: Ondansetron 4 MG/2 ML SDV IVPUSH PRN (19:29)
[2022-04-02] MEDS ORDERED: Azithromycin 500 MG in Sodium Chloride 0.9% 250 ML IV ONE (19:35)
[2022-04-02] MEDS ORDERED: Glucagon,Human Recombinant 1 MG Vial IM PRN (19:37)
[2022-04-02] MEDS ORDERED: 50% Dextrose in Water 50 ML Syringe IVPUSH PRN (19:37)
[2022-04-02] MEDS ORDERED: guaiFENesin/Dextromethorphan 100-10 MG/5 ML Soln 5 ML Cup PO PRN (19:38)
[2022-04-02] MEDS ORDERED: Gabapentin 300 MG Cap PO ONE (19:39)
[2022-04-02] MEDS ORDERED: LORazepam 2 MG/ML SDV IVPUSH ONE (19:41)
[2022-04-02] MEDS ORDERED: Flumazenil 0.1 MG/ML 5 ML MDV IVPUSH PRN (19:41)
[2022-04-02] MEDS ORDERED: Temazepam 15 MG Cap PO ONE (19:43)
[2022-04-02] MEDS ORDERED: Sodium Chloride 0.9% 1,000 ML IV SCH (19:45)
[2022-04-02] MEDS: Acetaminophen/HYDROcodone 325-10 MG Tab PO PRN (22:34)
[2022-04-02] MEDS ORDERED: Non-Formulary Medication 1 Each (Warfarin 3 MG Tablet) PO SCH ×2 (22:45)
[2022-04-03] MEDS: methylPREDNISolone Sodium Succinate 40 MG/1 ML SDV IVPUSH SCH ×5 (00:23→20:31)
[2022-04-03] MEDS: Acetaminophen/HYDROcodone 325-10 MG Tab PO PRN ×3 (02:22→17:05)
[2022-04-03 07:00] LABS: ANION GAP 11.9 mEq/L (7-13)
[2022-04-03] MEDS: Insulin Lispro 100 Units/ML 3 ML Vial SUBCUT SCH ×3 (07:44→17:10)
[2022-04-03] MEDS ORDERED: LORazepam 0.5 MG Tab PO PRN (08:32)
[2022-04-03] MEDS ORDERED: LORazepam 2 MG/ML SDV IV PRN (08:32)
[2022-04-03] MEDS ORDERED: Haloperidol Lactate 5 MG/ML SDV IM PRN (08:32)
[2022-04-03] MEDS ORDERED: Azithromycin 500 MG in Sodium Chloride 0.9% 250 ML IV SCH (09:00)
[2022-04-03] MEDS: Saccharomyces Boulardii (Probiotic) 250 MG Cap PO SCH (09:13)
[2022-04-03] MEDS: Multivitamin Tab PO SCH (11:50)
[2022-04-03] MEDS: Thiamine 100 MG Tab PO SCH (11:50)
[2022-04-03] MEDS: Folic Acid 1 MG Tab PO SCH (11:50)
[2022-04-03] MEDS: SILDENAFIL 20 MG PO SCH ×2 (13:59→20:29)
[2022-04-03] MEDS ORDERED: Warfarin 2 MG Tab PO ONE (14:00)
[2022-04-03] MEDS ORDERED: Albuterol 6.7 GM Inhaler INH PRN (20:57)
[2022-04-03] MEDS ORDERED: Diclofenac Sodium 1% Gel 100 GM Tube TOP PRN (20:57)
[2022-04-03] MEDS ORDERED: Docusate Sodium 100 MG Cap PO PRN (20:57)
[2022-04-03] MEDS ORDERED: traZODone 50 MG Tab PO PRN (21:00)
[2022-04-03] MEDS ORDERED: Temazepam 15 MG Cap PO PRN (21:00)
[2022-04-03] MEDS ORDERED: Gabapentin 300 MG Cap PO SCH (21:00)
[2022-04-03] MEDS ORDERED: Ziprasidone Mesylate 20 MG Vial IM PRN (21:04)
[2022-04-03] MEDS ORDERED: Water For Injection, Sterile 10 ML ONE (21:42)
[2022-04-03] MEDS: Formoterol/Mometasone 200-5 MCG 8.8 GM Inhaler IH SCH (21:54)
[2022-04-03] MEDS: Acetaminophen/oxyCODONE 325-5 MG Tab PO PRN (21:56)
[2022-04-04] MEDS: methylPREDNISolone Sodium Succinate 40 MG/1 ML SDV IVPUSH SCH (02:03)
[2022-04-04] MEDS: Acetaminophen/oxyCODONE 325-5 MG Tab PO PRN ×3 (02:04→12:44)
[2022-04-04] MEDS ORDERED: Levothyroxine 88 MCG Tab PO SCH (06:00)
[2022-04-04] MEDS: Acetaminophen/HYDROcodone 325-10 MG Tab PO PRN ×2 (06:03→16:08)
[2022-04-04] MEDS: Insulin Lispro 100 Units/ML 3 ML Vial SUBCUT SCH ×3 (07:39→17:19)
[2022-04-04] MEDS ORDERED: methylPREDNISolone Sodium Succinate 40 MG/1 ML SDV IVPUSH SCH (08:00)
[2022-04-04] MEDS: Saccharomyces Boulardii (Probiotic) 250 MG Cap PO SCH (08:10)
[2022-04-04] MEDS: Thiamine 100 MG Tab PO SCH (08:10)
[2022-04-04] MEDS: Multivitamin Tab PO SCH (08:11)
[2022-04-04] MEDS: Folic Acid 1 MG Tab PO SCH (08:11)
[2022-04-04] MEDS: SILDENAFIL 20 MG PO SCH ×2 (08:13→12:59)
[2022-04-04] MEDS: Sodium Chloride 0.9% 10 ML Syringe FLUSH PRN (08:17)
[2022-04-04] MEDS: Formoterol/Mometasone 200-5 MCG 8.8 GM Inhaler IH SCH (08:19)
[2022-04-04] MEDS ORDERED: DULoxetine 30 MG Cap PO SCH (09:00)
[2022-04-04] MEDS ORDERED: traZODone 50 MG Tab PO SCH (09:00)
[2022-04-04] MEDS ORDERED: Tiotropium Inhaler 18 MCG Inhalation Powder Cap Kit of 5 INH SCH (09:00)
[2022-04-04] MEDS ORDERED: Multivitamin Tab PO SCH (09:00)
[2022-04-04] MEDS ORDERED: Azithromycin 500 MG in Sodium Chloride 0.9% 250 ML IV SCH (09:00)
[2022-04-04] MEDS ORDERED: Allopurinol 300 MG Tab PO SCH (09:00)
[2022-04-04 16:30] VITALS: BP 145/76; PULSE 76
== END 2022-04-04 17:50 | disposition home or self-care (01) | DRG 190 ==
LOC: DL.ED 14:33 → DL.MS 17:28
PROVIDERS: ADMIT Internal Medicine; ATTEND Internal Medicine
DX: J44.1 Chronic obstructive pulmonary disease with (acute) exacerbation (principal); G93.41 Metabolic encephalopathy; N17.9 Acute kidney failure, unspecified; R09.02 Hypoxemia; I13.0 Hypertensive heart and chronic kidney disease with heart failure and stage 1 through stage 4 chronic kidney disease, or unspecified chronic kidney disease; I50.32 Chronic diastolic (congestive) heart failure; I48.20 Chronic atrial fibrillation, unspecified; J96.11 Chronic respiratory failure with hypoxia; J96.12 Chronic respiratory failure with hypercapnia; H66.90 Otitis media, unspecified, unspecified ear; I48.91 Unspecified atrial fibrillation; I50.9 Heart failure, unspecified; R79.1 Abnormal coagulation profile; Z96.641 Presence of right artificial hip joint; Z96.651 Presence of right artificial knee joint; Z96.611 Presence of right artificial shoulder joint; Z66 Do not resuscitate; E66.9 Obesity, unspecified; G47.30 Sleep apnea, unspecified; R74.8 Abnormal levels of other serum enzymes; E87.8 Other disorders of electrolyte and fluid balance, not elsewhere classified; Z20.822 Contact with and (suspected) exposure to COVID-19; E80.6 Other disorders of bilirubin metabolism; R79.89 Other specified abnormal findings of blood chemistry; G47.00 Insomnia, unspecified; E78.5 Hyperlipidemia, unspecified; I25.10 Atherosclerotic heart disease of native coronary artery without angina pectoris; N18.30 Chronic kidney disease, stage 3 unspecified; G47.33 Obstructive sleep apnea (adult) (pediatric); K59.09 Other constipation; M19.90 Unspecified osteoarthritis, unspecified site; G89.29 Other chronic pain; M54.9 Dorsalgia, unspecified; M10.9 Gout, unspecified; D63.8 Anemia in other chronic diseases classified elsewhere; E03.9 Hypothyroidism, unspecified; I27.20 Pulmonary hypertension, unspecified; I07.1 Rheumatic tricuspid insufficiency; Z91.81 History of falling; Z79.899 Other long term (current) drug therapy; Z79.890 Hormone replacement therapy; Z87.891 Personal history of nicotine dependence; Z86.718 Personal history of other venous thrombosis and embolism; Z86.711 Personal history of pulmonary embolism; Z68.31 Body mass index [BMI] 31.0-31.9, adult; Z88.1 Allergy status to other antibiotic agents; Z79.51 Long term (current) use of inhaled steroids; I25.2 Old myocardial infarction; Z79.01 Long term (current) use of anticoagulants; Z86.19 Personal history of other infectious and parasitic diseases; Z98.49 Cataract extraction status, unspecified eye; Z90.89 Acquired absence of other organs; Z98.890 Other specified postprocedural states; Z90.49 Acquired absence of other specified parts of digestive tract
CPT/HCPCS: 0240U; 36415; 71045; 80053; 80307; 81003; 82947; 83605; 83735; 83880; 84145; 85025; 85610; 86140; 87040; 87070; 87077; 87186; 87205; 93005; 94640; 96365; 96375; 97161; 97165; 97530; 99223; 99233; 99238; 99284; A9270-GY; J0456; J1170; J1815-GY; J2060; J2920; J2930; J3475; J3486; J3490; J7030; J7050; J7613-GY